=== PATIENT | female | born 1945 | race Two or more races ===

== ENCOUNTER 2017-06-14 12:39 | Inpatient (IN) | payer MEDICARE, OTHER ==
[~2017-06-14] VITALS: Ht 154.9 cm; Wt 55.3 kg
[2017-06-14] MEDS ORDERED: SODIUM CHLORIDE 0.9% 1,000 ML IV ONE ×2 (13:32)
[2017-06-14] MEDS ORDERED: InsuLIN REG 1unit/0.01ml Soln (100units/ml) IV ONE (13:45)
[2017-06-14 13:57] LABS: Basophils # (auto) 0 uL; Basophils % (auto) 0.5 % (0.0-2.0); CONDITION Y; Eosinophils # (auto) 0 uL; Hematocrit 41.3 % (36.0-46.0); Hemoglobin 14.4 g/dL (12.2-16.2); Lymphocytes % (auto) 13.3 % (10.0-50.0); Mean Corpuscular Hemoglobin 32.3 pg (28.0-32.0); Mean Corpuscular Hgb Conc. 34.9 g/dL (32.0-36.0); Mean Corpuscular Volume 92.6 fL (80.0-100.0); Mean Platelet Volume 10.4 fL (7.4-10.4); Monocytes # (auto) 0.4 uL; Monocytes % (auto) 5.9 % (0.0-12.0); Neutrophils % (auto) 80.3 % (37.0-80.0); Platelet Count (auto) 182 10^3/uL (140-450); Red Cell Distribution Width 12.5 % (11.6-16.0); White Blood Cell 7.5 10^3/uL (4.4-10.8)
[2017-06-14 14:45] LABS: Albumin 3.5 g/dL (3.4-5.0); BUN/Creatinine Ratio 14.3; Bilirubin, Total 0.5 mg/dL (0.2-1.0); Calcium 9.2 mg/dL (8.5-10.1); Potassium 3.7 mmol/L (3.5-5.1); Total Protein 7.8 g/dL (6.4-8.2)
[2017-06-14] MEDS ORDERED: cefTRIAXone 1GM/50ML D5W 50 ML IV ONE (16:30)
[2017-06-14] MEDS ORDERED: HYDROcodone-ACET 5/325MG TAB PO PRN (18:00)
[2017-06-14] MEDS ORDERED: DEXTROSE (50%) 50ML SYRG IV PRN (18:00)
[2017-06-14] MEDS ORDERED: DOCUSATE SOD 100 MG CAP PO PRN (18:00)
[2017-06-14] MEDS ORDERED: TEMAZEPAM 15 MG CAP PO PRN (18:00)
[2017-06-14] MEDS ORDERED: MORPHINE SULF INJ 2 MG/ML SYRINGE 1ML IV PRN ×2 (18:00)
[2017-06-14] MEDS ORDERED: ONDANSETRON HCL 4 MG/2 ML VIAL IV PRN (18:00)
[2017-06-14] MEDS ORDERED: NITROGLYCERIN 0.4 MG SL TAB SL PRN (18:00)
[2017-06-14] MEDS: SODIUM CHLORIDE 0.9% 1,000 ML IV SCH (18:15)
[2017-06-14 19:29] LABS: Urine Bilirubin Negative (Negative); Urine Color Yellow (Yellow); Urine RBC 18 /hpf (0 - 4); Urine Squamous Epithelial Cell FEW /hpf (<5); Urine Urobilinogen Normal (Negative); Urine WBC Clumps PRESENT /hpf (None Seen)
[2017-06-14 19:32] LABS: Urine Blood 1+ /uL (Negative); Urine Glucose 4+ mg/dL (Normal); Urine Ketone 1+ (Negative); Urine Nitrite POSITIVE (Negative)
[2017-06-14] MEDS: ACETAMINOPHEN 325 MG TAB PO PRN (20:06)
[2017-06-14 20:51] VITALS: BP 104/64
[2017-06-14 21:35] VITALS: BP 104/64
[2017-06-14] MEDS: FAMOTIDINE 20 MG TAB PO SCH (22:16)
[2017-06-14] MEDS: ACCU-CHEK COMFORT CURVE STRIP VI SCH (22:19)
[2017-06-14] MEDS: INSULIN DETEMIR(LEVEMIR) 1unit/0.01ml Soln (100units/ml) SC SCH (22:22)
[2017-06-14] MEDS: InsuLIN REG 1unit/0.01ml Soln (100units/ml) SC SCH (22:23)
[2017-06-15] VITALS (7 sets, daily range): BP systolic 98–132; BP diastolic 55–65
[2017-06-15] MEDS ORDERED: LEVEMIR SC (02:20)
[2017-06-15] MEDS ORDERED: IRONTAB34 OR (02:22)
[2017-06-15] MEDS: ACETAMINOPHEN 325 MG TAB PO PRN ×2 (04:47→12:15)
[2017-06-15] MEDS ORDERED: PNEUMOCOCCAL VACC POLYS 25 MCG/0.5 ML VIAL IM SCH (05:30)
[2017-06-15 06:27] LABS: Basophils # (auto) 0 uL; Basophils % (auto) 0.7 % (0.0-2.0); CONDITION Y; Eosinophils # (auto) 0 uL; Hematocrit 36.1 % (36.0-46.0); Hemoglobin 12.6 g/dL (12.2-16.2); Lymphocytes # (auto) 0.9 uL; Lymphocytes % (auto) 13.8 % (10.0-50.0); Mean Corpuscular Hemoglobin 32.3 pg (28.0-32.0); Mean Corpuscular Hgb Conc. 34.9 g/dL (32.0-36.0); Mean Corpuscular Volume 92.8 fL (80.0-100.0); Mean Platelet Volume 10.8 fL (7.4-10.4); Monocytes # (auto) 0.5 uL; Monocytes % (auto) 7.7 % (0.0-12.0); Neutrophils % (auto) 77.8 % (37.0-80.0); Platelet Count (auto) 160 10^3/uL (140-450); Red Cell Distribution Width 12.4 % (11.6-16.0); White Blood Cell 6.4 10^3/uL (4.4-10.8)
[2017-06-15] MEDS: ACCU-CHEK COMFORT CURVE STRIP VI SCH ×4 (06:29→22:37)
[2017-06-15] MEDS: InsuLIN REG 1unit/0.01ml Soln (100units/ml) SC SCH ×4 (06:30→22:36)
[2017-06-15 06:39] LABS: Albumin 2.6 g/dL (3.4-5.0); BUN/Creatinine Ratio 21.7; Calcium 7.9 mg/dL (8.5-10.1)
[2017-06-15 06:41] LABS: Bilirubin, Total 0.3 mg/dL (0.2-1.0); Total Protein 6.2 g/dL (6.4-8.2)
[2017-06-15 06:46] LABS: Potassium 2.9 mmol/L (3.5-5.1)
[2017-06-15] MEDS ORDERED: POTASSIUM CHL 20 Meq TABLET PO ONE (08:00)
[2017-06-15] MEDS: cefTRIAXone 1GM/50ML D5W 50 ML IV SCH (09:04)
[2017-06-15] MEDS: FAMOTIDINE 20 MG TAB PO SCH ×2 (09:04→22:00)
[2017-06-15] MEDS: MULTIPLE VITAMIN TAB PO SCH (09:05)
[2017-06-15] MEDS: SODIUM CHLORIDE 0.9% 1,000 ML IV SCH (10:28)
[2017-06-15 21:10] LABS: Basophils # (auto) 0 uL; Basophils % (auto) 0.5 % (0.0-2.0); CONDITION Y; Eosinophils # (auto) 0 uL; Hematocrit 34.7 % (36.0-46.0); Hemoglobin 12.1 g/dL (12.2-16.2); Lymphocytes # (auto) 0.9 uL; Lymphocytes % (auto) 16.5 % (10.0-50.0); Mean Corpuscular Hgb Conc. 34.9 g/dL (32.0-36.0); Mean Corpuscular Volume 91.8 fL (80.0-100.0); Mean Platelet Volume 10.3 fL (7.4-10.4); Monocytes # (auto) 0.4 uL; Monocytes % (auto) 6.9 % (0.0-12.0); Neutrophils # (auto) 4.4 uL; Neutrophils % (auto) 76.1 % (37.0-80.0); Platelet Count (auto) 171 10^3/uL (140-450); Red Cell Distribution Width 12.5 % (11.6-16.0); White Blood Cell 5.7 10^3/uL (4.4-10.8)
[2017-06-15] MEDS: INSULIN DETEMIR(LEVEMIR) 1unit/0.01ml Soln (100units/ml) SC SCH (22:37)
[2017-06-15] MEDS ORDERED: VANCOMYCIN 1GM/250ML D5W 250 ML IV ONE (23:00)
[2017-06-15] MEDS ORDERED: VANCOMYCIN PER PHARMACY 0 MG IV SCH (23:00)
[2017-06-16] MEDS: SODIUM CHLORIDE 0.9% 1,000 ML IV SCH (02:30)
[2017-06-16 05:37] VITALS: BP 101/55
[2017-06-16 06:12] LABS: Basophils # (auto) 0 uL; Basophils % (auto) 0.4 % (0.0-2.0); CONDITION Y; Eosinophils # (auto) 0 uL; Hematocrit 36.2 % (36.0-46.0); Hemoglobin 12.7 g/dL (12.2-16.2); Lymphocytes # (auto) 1.5 uL; Lymphocytes % (auto) 25.9 % (10.0-50.0); Mean Corpuscular Hemoglobin 32.2 pg (28.0-32.0); Mean Corpuscular Hgb Conc. 35.1 g/dL (32.0-36.0); Mean Corpuscular Volume 91.7 fL (80.0-100.0); Mean Platelet Volume 10.2 fL (7.4-10.4); Monocytes # (auto) 0.5 uL; Monocytes % (auto) 8.8 % (0.0-12.0); Neutrophils # (auto) 3.8 uL; Neutrophils % (auto) 64.9 % (37.0-80.0); Platelet Count (auto) 176 10^3/uL (140-450); Red Cell Distribution Width 12.4 % (11.6-16.0); White Blood Cell 5.9 10^3/uL (4.4-10.8)
[2017-06-16] MEDS: ACCU-CHEK COMFORT CURVE STRIP VI SCH ×3 (06:27→16:52)
[2017-06-16] MEDS: InsuLIN REG 1unit/0.01ml Soln (100units/ml) SC SCH ×3 (06:27→16:53)
[2017-06-16 06:42] LABS: BUN/Creatinine Ratio 13.6; Calcium 8.3 mg/dL (8.5-10.1)
[2017-06-16 06:55] LABS: Potassium 2.9 mmol/L (3.5-5.1)
[2017-06-16] MEDS ORDERED: POTASSIUM CHL 20 Meq TABLET PO ONE (07:15)
[2017-06-16 08:00] VITALS: BP 92/48
[2017-06-16] MEDS: cefTRIAXone 1GM/50ML D5W 50 ML IV SCH (08:40)
[2017-06-16 09:00] VITALS: BP 92/48
[2017-06-16] MEDS: MULTIPLE VITAMIN TAB PO SCH (09:04)
[2017-06-16] MEDS: FAMOTIDINE 20 MG TAB PO SCH (09:04)
[2017-06-16] MEDS ORDERED: VANCOMYCIN 750 MG in D5W 5% 250 ML IV SCH (10:00)
[2017-06-16 13:00] VITALS: BP 112/77
[2017-06-16] MEDS ORDERED: LEVO500T21 PO (15:39)
[2017-06-16 15:59] VITALS: BP 112/77
== END 2017-06-16 19:00 | disposition home or self-care (01) | DRG 720 ==
LOC: ER 12:39 → TELE 12:40 → TELE-WESTW 20:50
PROVIDERS: ADMIT Internal Medicine; ATTEND Nurse Practitioner Acute Care
DX: A41.9 Sepsis, unspecified organism (principal); E11.21 Type 2 diabetes mellitus with diabetic nephropathy; E11.65 Type 2 diabetes mellitus with hyperglycemia; E87.1 Hypo-osmolality and hyponatremia; F17.210 Nicotine dependence, cigarettes, uncomplicated; N18.2 Chronic kidney disease, stage 2 (mild); B96.20 Unspecified Escherichia coli [E. coli] as the cause of diseases classified elsewhere; N12 Tubulo-interstitial nephritis, not specified as acute or chronic; E11.22 Type 2 diabetes mellitus with diabetic chronic kidney disease; Z79.4 Long term (current) use of insulin; Z83.3 Family history of diabetes mellitus; Z90.49 Acquired absence of other specified parts of digestive tract; Z23 Encounter for immunization
CPT/HCPCS: 36415; 71010; 74176; 80048; 80053; 80202; 81001; 82962; 83036; 83605; 83735; 84100; 84443; 85025; 87040; 87086; 87088; 87186; 96361; 96365; 96375; J0696; J1815; J7060

== ENCOUNTER 2018-02-23 12:19 | Emergency (ER) | payer MEDICARE, OTHER ==
[~2018-02-23] VITALS: Ht 142.2 cm; Wt 54.4 kg
[~2018-02-23 12:19] MED LIST: IRONTAB34 OR; LEVEMIR SC; LEVO500T21 PO
[2018-02-23 13:23] LABS: Basophils # (auto) 0.1 uL; Basophils % (auto) 0.9 % (0.0-2.0); Eosinophils # (auto) 0 uL; Eosinophils % (auto) 0.1 % (0.0-7.0); Lymphocytes # (auto) 2.5 uL; Lymphocytes % (auto) 32.1 % (10.0-50.0); Mean Corpuscular Hemoglobin 31.8 pg (28.0-32.0); Mean Corpuscular Hgb Conc. 33.3 g/dL (32.0-36.0); Mean Corpuscular Volume 95.5 fL (80.0-100.0); Monocytes # (auto) 0.4 uL; Monocytes % (auto) 5.1 % (0.0-12.0); Neutrophils # (auto) 4.8 uL; Neutrophils % (auto) 61.8 % (37.0-80.0); Nucleated Red Blood Cells % 0.1 %; Platelet Count (auto) 188 10^3/uL (140-450); Red Blood Cells 4.71 10^6/uL (4.0-5.20); Red Cell Distribution Width 13.8 % (11.8-14.3); White Blood Cell 7.8 10^3/uL (4.4-10.8)
[2018-02-23 13:28] LABS: Urine Bacteria NONE SEEN /hpf (None Seen); Urine Blood Negative /uL (Negative); Urine Mucus FEW (None Seen); Urine Specific Gravity 1.026 (1.001-1.035); Urine WBC 2 /hpf (0 - 5)
[2018-02-23 13:45] LABS: BUN/Creatinine Ratio 20.7; Bilirubin, Total 0.3 mg/dL (0.2-1.0); Calcium 8.8 mg/dL (8.5-10.1); Total Protein 7.4 g/dL (6.4-8.2)
[2018-02-23] MEDS ORDERED: InsuLIN REG 1unit/0.01ml Soln (100units/ml) SC ONE (16:15)
[2018-02-23 16:43] VITALS: BP 122/74
== END 2018-02-23 16:51 | disposition home or self-care (01) ==
LOC: ER 12:19
DX: E11.65 Type 2 diabetes mellitus with hyperglycemia (principal); F17.210 Nicotine dependence, cigarettes, uncomplicated; Z79.4 Long term (current) use of insulin
CPT/HCPCS: 36415; 71046; 80053; 81001; 82962; 85025; 93005; 96372; 99285; J1815; J7030

== ENCOUNTER 2018-07-14 10:57 | Emergency (ER) | payer MEDICARE, OTHER ==
[~2018-07-14] VITALS: Ht 152.4 cm; Wt 53.5 kg
[2018-07-14] MEDS ORDERED: SODIUM CHLORIDE 0.9% 500 ML IVB ONE (11:10)
[2018-07-14] MEDS ORDERED: KETOROLAC TROMETH 30 MG/ML 1ML VIAL IM ONE (11:15)
[2018-07-14] MEDS ORDERED: PROMETHAZINE HCL 25 MG/ML 1ML IV PRN (11:15)
[2018-07-14 11:34] LABS: Urine Bacteria NONE SEEN /hpf (None Seen); Urine Blood Negative /uL (Negative); Urine Specific Gravity 1.016 (1.001-1.035); Urine WBC 1 /hpf (0 - 5)
[2018-07-14 11:40] LABS: Basophils # (auto) 0 uL; Basophils % (auto) 0.5 % (0.0-2.0); Eosinophils # (auto) 0 uL; Hemoglobin 13.7 g/dL (12.2-16.2); Lymphocytes # (auto) 2.4 uL; Lymphocytes % (auto) 32.9 % (10.0-50.0); Mean Corpuscular Hemoglobin 32.2 pg (28.0-32.0); Mean Corpuscular Hgb Conc. 34.3 g/dL (32.0-36.0); Mean Corpuscular Volume 93.8 fL (80.0-100.0); Monocytes # (auto) 0.4 uL; Monocytes % (auto) 5.9 % (0.0-12.0); Neutrophils # (auto) 4.5 uL; Neutrophils % (auto) 60.7 % (37.0-80.0); Nucleated Red Blood Cells % 0.1 %; Platelet Count (auto) 165 10^3/uL (140-450); Red Blood Cells 4.27 10^6/uL (4.0-5.20); Red Cell Distribution Width 13.2 % (11.8-14.3); White Blood Cell 7.4 10^3/uL (4.4-10.8)
[2018-07-14 12:24] LABS: Alanine Aminotransferase 16 U/L (13-56); Albumin 3.5 g/dL (3.4-5.0); Alkaline Phosphatase 116 U/L (45-117); Anion Gap 7 (5-15); Aspartate Aminotransferase 13 U/L (15-37); BUN/Creatinine Ratio 22.4; Bilirubin, Total 0.5 mg/dL (0.2-1.0); Blood Urea Nitrogen 15 mg/dL (7-18); Calcium 8.4 mg/dL (8.5-10.1); Carbon Dioxide 27 mmol/L (21-32); Chloride 104 mmol/L (98-107); GFR African American 112 mL/min; GFR Non-African American 92 mL/min; Glucose 206 mg/dL (74-106); Lipase 154 U/L (73-393); Potassium 3.7 mmol/L (3.5-5.1); Sodium 138 mmol/L (136-145)
[2018-07-14 13:45] VITALS: BP 128/77
== END 2018-07-14 13:58 | disposition home or self-care (01) ==
LOC: ER 10:57
DX: R10.32 Left lower quadrant pain (principal); R19.7 Diarrhea, unspecified; J45.909 Unspecified asthma, uncomplicated; E11.9 Type 2 diabetes mellitus without complications; F17.210 Nicotine dependence, cigarettes, uncomplicated; Z90.49 Acquired absence of other specified parts of digestive tract
CPT/HCPCS: 36415; 74176; 80053; 81001; 83690; 83735; 84484; 85025; 93005; 94761; 96361; 96372; 96374; 99285; J1885; J2550; J7040

== ENCOUNTER → 2019-04-12 | Emergency (ER) | payer MEDICARE, OTHER ==
[~2019-04-12] VITALS: Ht 154.9 cm; Wt 54.9 kg
[2019-04-12 17:31] LABS: Basophils # (auto) 0 uL; Basophils % (auto) 0.4 % (0.0-2.0); Eosinophils # (auto) 0 uL; Eosinophils % (auto) 0.1 % (0.0-7.0); Hematocrit 41.4 % (36.0-46.0); Hemoglobin 14.3 g/dL (12.2-16.2); Lymphocytes # (auto) 2.7 uL; Lymphocytes % (auto) 35.8 % (10.0-50.0); Mean Corpuscular Hemoglobin 32.2 pg (28.0-32.0); Mean Corpuscular Hgb Conc. 34.6 g/dL (32.0-36.0); Mean Corpuscular Volume 93.1 fL (80.0-100.0); Monocytes # (auto) 0.5 uL; Monocytes % (auto) 6.3 % (0.0-12.0); Neutrophils # (auto) 4.4 uL; Neutrophils % (auto) 57.4 % (37.0-80.0); Nucleated Red Blood Cells % 0.1 %; Platelet Count (auto) 182 10^3/uL (140-450); Red Blood Cells 4.44 10^6/uL (4.0-5.20); Red Cell Distribution Width 13.4 % (11.8-14.3); White Blood Cell 7.7 10^3/uL (4.4-10.8)
[2019-04-12 17:48] LABS: Albumin 3.7 g/dL (3.4-5.0); Potassium 4.1 mmol/L (3.5-5.1)
[2019-04-12 17:54] LABS: BUN/Creatinine Ratio 16.2; Bilirubin, Total 0.3 mg/dL (0.2-1.0); Total Protein 7.4 g/dL (6.4-8.2)
[2019-04-12 17:57] LABS: Urine Bacteria NONE SEEN /hpf (None Seen); Urine Blood Negative /uL (Negative); Urine Specific Gravity 1.027 (1.001-1.035); Urine WBC 1 /hpf (0 - 5)
[2019-04-12 18:20] VITALS: BP 122/78
== END | disposition home or self-care (01) ==
LOC: ER 16:20
DX: R10.84 Generalized abdominal pain (principal); K59.00 Constipation, unspecified; J45.909 Unspecified asthma, uncomplicated; E11.9 Type 2 diabetes mellitus without complications; F17.210 Nicotine dependence, cigarettes, uncomplicated; Z90.49 Acquired absence of other specified parts of digestive tract; Z87.442 Personal history of urinary calculi
CPT/HCPCS: 36415; 74176; 80053; 81001; 82150; 82962; 83690; 85025; 93005

== ENCOUNTER 2020-10-06 14:52 | Inpatient (IN) | payer MEDICARE, OTHER ==
[~2020-10-06] VITALS: Ht 167.6 cm; Wt 57.0 kg
[2020-10-06 16:44] LABS: Urine Bacteria FEW /hpf (None Seen); Urine Blood 1+ /uL (Negative); Urine Mucus FEW (None Seen); Urine Specific Gravity 1.016 (1.001-1.035); Urine WBC 454 /hpf (0 - 5); Urine WBC Clumps PRESENT /hpf (None Seen)
[2020-10-06 16:56] LABS: Basophils # (auto) 0.1 10 ^3/uL (0-0.2); Eosinophils # (auto) 0 10 ^3/uL (0-0.8); Eosinophils % (auto) 0.1 % (0.0-7.0); Hematocrit 39.8 % (36.0-46.0); Hemoglobin 13.5 g/dL (12.2-16.2); Lymphocytes # (auto) 2.3 10 ^3/uL (0.4-5.4); Lymphocytes % (auto) 26.6 % (10.0-50.0); Mean Corpuscular Hemoglobin 32.3 pg (28.0-32.0); Mean Corpuscular Volume 95.1 fL (80.0-100.0); Monocytes # (auto) 0.5 10 ^3/uL (0-1.3); Monocytes % (auto) 5.4 % (0.0-12.0); Neutrophils # (auto) 5.7 10 ^3/uL (1.6-8.6); Neutrophils % (auto) 66.9 % (37.0-80.0); Nucleated Red Blood Cells % 0.1 %; Platelet Count (auto) 173 10^3/uL (140-450); Red Blood Cells 4.18 10^6/uL (4.0-5.20); Red Cell Distribution Width 13.1 % (11.8-14.3); White Blood Cell 8.5 10^3/uL (4.4-10.8)
[2020-10-06 17:18] LABS: Albumin 3.4 g/dL (3.4-5.0); Calcium 8.5 mg/dL (8.5-10.1); Potassium 3.5 mmol/L (3.5-5.1)
[2020-10-06 17:21] LABS: BUN/Creatinine Ratio 14.4; Bilirubin, Total 0.3 mg/dL (0.2-1.0); Total Protein 6.9 g/dL (6.4-8.2)
[2020-10-06] MEDS ORDERED: InsuLIN REG 1unit/0.01ml Soln (100units/ml) IV ONE (17:45)
[2020-10-06] MEDS ORDERED: SODIUM CHLORIDE 0.9% 1,000 ML IV ONE ×2 (17:45→19:15)
[2020-10-06] MEDS ORDERED: cefTRIAXone 1GM/50ML D5W 50 ML IV ONE (18:45)
[2020-10-06] MEDS ORDERED: MORPHINE SULF INJ 2 MG/ML SYRINGE 1ML IV PRN (19:15)
[2020-10-06] MEDS ORDERED: NITROGLYCERIN 0.4 MG SL TAB SL PRN (19:15)
[2020-10-06] MEDS ORDERED: INSULIN LANTUS (GLARGINE) 1 /0.01ml (100units/ml) SC ONE (19:15)
[2020-10-06] MEDS ORDERED: DEXTROSE (50%) 50ML SYRG IV PRN (19:15)
[2020-10-06] MEDS: ACCU-CHEK COMFORT CURVE STRIP VI SCH (20:43)
[2020-10-06] MEDS ORDERED: InsuLIN REG 1unit/0.01ml Soln (100units/ml) SC SCH (22:00)
[2020-10-07] MEDS: MEROPENEM 1GM IVPB 100 ML IV SCH ×2 (00:45→17:13)
[2020-10-07] MEDS ORDERED: ACETAMINOPHEN 325 MG TAB PO PRN (01:15)
[2020-10-07] MEDS ORDERED: NITROGLYCERIN 0.4 MG SL TAB SL PRN (01:15)
[2020-10-07] MEDS ORDERED: ALBUTEROL SULF 2.5 MG/0.5ML(0.5%) NEB SOLN NEB PRN (01:15)
[2020-10-07] MEDS ORDERED: MORPHINE SULF INJ 2 MG/ML SYRINGE 1ML IV PRN ×2 (01:15)
[2020-10-07] MEDS ORDERED: LORazepam 0.5 MG TAB PO PRN (01:15)
[2020-10-07] MEDS ORDERED: DOCUSATE SOD 100 MG CAP PO PRN (01:15)
[2020-10-07] MEDS ORDERED: HYDROcodone-ACET 5/325MG TAB PO PRN (01:15)
[2020-10-07] MEDS ORDERED: SODIUM CHLORIDE 0.9% 1,000 ML IV SCH (01:15)
[2020-10-07] MEDS ORDERED: IPRATROPIUM BROM 0.5 MG/2.5ML INH SOL NEB SCH (02:00)
--- NOTE | 2020-10-07 02:10 | NUR ---
Respiratory note: PT SEEN AND ASSESSED FOR PRN MED NEB TX AT 0210. TX IS NOT INDICATED AT THIS TIME. PT STATES THAT SHE HAS HAD NO TROUBLES BREATHING. HR 94 RR 18 SP02 98% ON ROOM AIR.
[2020-10-07] MEDS ORDERED: IPRATROPIUM BROM 0.5 MG/2.5ML INH SOL NEB PRN (03:00)
[2020-10-07 03:15] VITALS: BP 132/73
[2020-10-07 04:26] LABS: Cholesterol 142 mg/dL (< 200)
[2020-10-07 04:31] LABS: HDL Cholesterol 37 mg/dL (40-59); LDL Cholesterol 85 mg/dL (< 100); Triglycerides 152 mg/dL (< 150)
[2020-10-07] MEDS ORDERED: BUDESONIDE (INHALATION) 0.5 MG/2 ML NEB ONE (06:27)
[2020-10-07] MEDS: InsuLIN REG 1unit/0.01ml Soln (100units/ml) SC SCH ×4 (06:42→17:37)
[2020-10-07] MEDS: ACCU-CHEK COMFORT CURVE STRIP VI SCH ×4 (06:43→17:28)
[2020-10-07 07:21] LABS: Urine Bacteria NONE SEEN /hpf (None Seen); Urine Blood TRACE /uL (Negative); Urine Specific Gravity 1.009 (1.001-1.035); Urine WBC 180 /hpf (0 - 5)
[2020-10-07 07:47] LABS: Alcohol, Urine < 3.0 mg/dL (0-10); Amphetamine Screen, Urine NEGATIVE (NEGATIVE); Barbiturate Scree,Urine NEGATIVE (NEGATIVE); Benzodiazephine Screen, Urine NEGATIVE (NEGATIVE); Cannabinoid Screen, Urine NEGATIVE (NEGATIVE); Cocaine Screen, Urine NEGATIVE (NEGATIVE); Opiate Scree,Urine NEGATIVE (NEGATIVE); Phencyclidine Screen, Urine NEGATIVE (NEGATIVE)
[2020-10-07] MEDS ORDERED: cefTRIAXone 1GM/50ML D5W 50 ML IV SCH (09:00)
[2020-10-07] MEDS: ENOXAPARIN SOD 40 MG/0.4 ML SYRINGE SC SCH (09:45)
[2020-10-07] MEDS ORDERED: BUDESONIDE (INHALATION) 0.5 MG/2 ML NEB NEB SCH (10:00)
[2020-10-07] MEDS ORDERED: DOXYCYCLINE 100 MG TAB/CAP PO ONE (12:00)
[2020-10-07] MEDS ORDERED: DEXTROSE (50%) 50ML SYRG IV PRN (12:00)
[2020-10-07 12:13] LABS: Albumin 3.2 g/dL (3.4-5.0); Calcium 8.4 mg/dL (8.5-10.1); Potassium 3.3 mmol/L (3.5-5.1)
[2020-10-07] MEDS ORDERED: POTASSIUM EFFERVESENT TAB 25 MEQ PO ONE (12:15)
[2020-10-07 12:22] LABS: BUN/Creatinine Ratio 16.7; Bilirubin, Total 0.7 mg/dL (0.2-1.0); Total Protein 6.1 g/dL (6.4-8.2)
[2020-10-07] MEDS ORDERED: SODIUM CHLORIDE 0.9% 500 ML IV ONE (12:30)
[2020-10-07] MEDS: ONDANSETRON HCL 4 MG/2 ML VIAL IV PRN ×2 (13:33→14:42)
[2020-10-07 13:48] LABS: Basophils # (auto) 0 10 ^3/uL (0-0.2); Basophils % (auto) 0.3 % (0.0-2.0); Eosinophils # (auto) 0 10 ^3/uL (0-0.8); Eosinophils % (auto) 0.1 % (0.0-7.0); Hematocrit 35.2 % (36.0-46.0); Hemoglobin 11.9 g/dL (12.2-16.2); Lymphocytes # (auto) 0.7 10 ^3/uL (0.4-5.4); Lymphocytes % (auto) 5.9 % (10.0-50.0); Mean Corpuscular Hgb Conc. 33.9 g/dL (32.0-36.0); Mean Corpuscular Volume 94.4 fL (80.0-100.0); Monocytes # (auto) 0.5 10 ^3/uL (0-1.3); Monocytes % (auto) 3.9 % (0.0-12.0); Neutrophils # (auto) 10.8 10 ^3/uL (1.6-8.6); Neutrophils % (auto) 89.8 % (37.0-80.0); Platelet Count (auto) 148 10^3/uL (140-450); Red Blood Cells 3.72 10^6/uL (4.0-5.20); Red Cell Distribution Width 12.7 % (11.8-14.3)
[2020-10-07] MEDS: SODIUM CHLORIDE 0.9% 1,000 ML IV SCH (13:50)
[2020-10-07] MEDS ORDERED: SODIUM CHLORIDE 0.9% 1,000 ML IV ONE ×2 (14:15→15:00)
[2020-10-07] MEDS ORDERED: MEROPENEM 1GM IVPB 100 ML IV SCH (14:45)
[2020-10-07] MEDS: LINEZOLID 600MG/300ML 300 ML IV SCH ×2 (15:44→23:25)
[2020-10-07] MEDS ORDERED: CALCIUM GLUC 4.65meq/50ml D5AE 0 ML IV ONE (17:45)
--- NOTE | 2020-10-07 18:50 | NUR ---
Respiratory note: PT ASSESSED FOR PRN MED NEB TX. HR 107, RR 16, SPO2 92% ON RA. NO S/S OF ANY RESPIRATORY DISTRESS NOTED. ADVISED PT TO CALL IF TX IS NEEDED.
[2020-10-07] MEDS ORDERED: LORazepam 2MG/ML-1ML VIAL IV PRN (21:30)
[2020-10-07] MEDS ORDERED: DOXYCYCLINE 100 MG TAB/CAP PO SCH (22:00)
[2020-10-07] MEDS: INSULIN LANTUS (GLARGINE) 1 /0.01ml (100units/ml) SC SCH (23:10)
[2020-10-08] MEDS: SODIUM CHLORIDE 0.9% 1,000 ML IV SCH ×3 (00:45→17:13)
[2020-10-08] MEDS: ACCU-CHEK COMFORT CURVE STRIP VI SCH ×4 (01:20→17:13)
[2020-10-08] MEDS: InsuLIN REG 1unit/0.01ml Soln (100units/ml) SC SCH ×4 (01:20→17:15)
[2020-10-08 05:40] LABS: Basophils # (auto) 0.1 10 ^3/uL (0-0.2); Basophils % (auto) 0.5 % (0.0-2.0); Eosinophils # (auto) 0 10 ^3/uL (0-0.8); Eosinophils % (auto) 0.2 % (0.0-7.0); Hematocrit 32.6 % (36.0-46.0); Hemoglobin 11.4 g/dL (12.2-16.2); Lymphocytes # (auto) 1.5 10 ^3/uL (0.4-5.4); Lymphocytes % (auto) 14.4 % (10.0-50.0); Mean Corpuscular Hemoglobin 33.1 pg (28.0-32.0); Mean Corpuscular Hgb Conc. 35.1 g/dL (32.0-36.0); Mean Corpuscular Volume 94.2 fL (80.0-100.0); Monocytes # (auto) 0.6 10 ^3/uL (0-1.3); Monocytes % (auto) 5.6 % (0.0-12.0); Neutrophils % (auto) 79.3 % (37.0-80.0); Nucleated Red Blood Cells % 0.2 %; Platelet Count (auto) 132 10^3/uL (140-450); Red Blood Cells 3.46 10^6/uL (4.0-5.20); Red Cell Distribution Width 12.7 % (11.8-14.3); White Blood Cell 10.1 10^3/uL (4.4-10.8)
[2020-10-08 05:51] LABS: Calcium 7.7 mg/dL (8.5-10.1)
[2020-10-08 06:06] LABS: Potassium 2.8 mmol/L (3.5-5.1)
[2020-10-08] MEDS ORDERED: POTASSIUM CHL 20 Meq TABLET PO ONE (06:15)
[2020-10-08] MEDS: MEROPENEM 1GM IVPB 100 ML IV SCH ×3 (06:41→23:08)
--- NOTE | 2020-10-08 07:26 | NUR ---
Respiratory note: PT ASSESS FOR PRN MED NEB. PT FOUND ON ROOM AIR SP02 98%, HR 82, RR 18. PT IN NO RESPIRATORY DISTRESS AT THIS TIME. NO INDICATION FOR TX AT THIS TIME. PT AWARE TO HAVE RT PAGED IF SOB.
[2020-10-08] MEDS ORDERED: POTASSIUM EFFERVESENT TAB 25 MEQ PO ONE (09:15)
[2020-10-08] MEDS: LINEZOLID 600MG/300ML 300 ML IV SCH ×2 (09:50→22:12)
[2020-10-08] MEDS: ENOXAPARIN SOD 40 MG/0.4 ML SYRINGE SC SCH (09:50)
[2020-10-08 16:15] VITALS: BP 122/60
--- NOTE | 2020-10-08 16:28 | NUR ---
Telemetry admit from ER ALONDRA ABREU admitted to Telemetry unit after SBAR received. Patient oriented to Chelsie Colbert, primary RN, unit, room, bed, and unit policies regarding patient care and visiting hours. Patient now on continuous telemetry monitoring, tele box # [id number] and telemetry reading on arrival to unit is . Patient placed on bedside oxygen, weighed by bedscale and encouraged to call if they need something. All questions and concerns addressed, patient verbalized understanding. Note:
[2020-10-08] MEDS ORDERED: CHOL20007 PO (16:44)
[2020-10-08] MEDS ORDERED: MULT-732 OR (16:44)
--- NOTE | 2020-10-08 19:00 | NUR ---
Opening Shift Note Assumed care of patient, awake and alert x4. No S/S of distress/SOB or pain. bed in low locked position, call light within reach, side rails up x2. Instructed on POC and to call for assist PRN, will continue to monitor for changes Q1hr and PRN.
--- NOTE | 2020-10-08 19:16 | NUR ---
Respiratory note: ASSESSED PT FOR PRN MED NEB AT THIS TIME, PT DENIES SOB AT THIS TIME, NO RESP DISTRESS NOTED, NO TX INDICATED, PULSE OX 100% ON RA, HR 91, RR 14, BILATERAL BS CLEAR
[2020-10-08 22:00] VITALS: BP 126/70
--- NOTE | 2020-10-08 22:00 | NUR ---
Patient denies any pain. No needs right now.
[2020-10-08] MEDS: INSULIN LANTUS (GLARGINE) 1 /0.01ml (100units/ml) SC SCH (22:12)
[2020-10-09] MEDS: ACCU-CHEK COMFORT CURVE STRIP VI SCH ×4 (00:12→17:49)
[2020-10-09] MEDS: InsuLIN REG 1unit/0.01ml Soln (100units/ml) SC SCH ×4 (00:13→17:49)
[2020-10-09 05:00] VITALS: BP 114/59
[2020-10-09] MEDS: SODIUM CHLORIDE 0.9% 1,000 ML IV SCH (06:18)
[2020-10-09] MEDS: MEROPENEM 1GM IVPB 100 ML IV SCH (06:19)
[2020-10-09 06:25] LABS: BUN/Creatinine Ratio 11.3; Calcium 8.4 mg/dL (8.5-10.1); Potassium 3.3 mmol/L (3.5-5.1)
--- NOTE | 2020-10-09 07:50 | NUR ---
Opening Shift Note Assumed care of patient, awake and alert. bed is locked and in lowest position bed rails up x2 , call light is within reach . No S/S of distress/SOB or pain. Instructed on POC and to call for assistance PRN, will continue to monitor for changes Q1hr and PRN.
[2020-10-09 09:00] VITALS: BP 108/64
[2020-10-09] MEDS: ENOXAPARIN SOD 40 MG/0.4 ML SYRINGE SC SCH (10:37)
[2020-10-09] MEDS: LINEZOLID 600MG/300ML 300 ML IV SCH (10:37)
[2020-10-09] MEDS: SERTRALINE HCL 50 MG TAB PO SCH (10:37)
[2020-10-09] MEDS ORDERED: POTASSIUM CHL 20 Meq TABLET PO ONE (11:30)
--- NOTE | 2020-10-09 11:38 | NUR ---
EEG-ELECTROENCEPHALOGRAM COMPLETED AT BEDSIDE @ [id number]. RN MIGUEL CAMILO.
[2020-10-09 13:00] VITALS: BP_SYST 149; BP_SYST 156; BP_DIAS 81; BP_DIAS 91
[2020-10-09 17:00] VITALS: BP 128/81
--- NOTE | 2020-10-09 18:39 | NUR ---
PT ASSESSED FOR PRN MED NEB TX. SPO2 96% ON RA, HR 82. PT DENIES ANY RESPIRATORY DISTRESS. NO TX INDICATED. PT IS AWARE TO HAVE RT PAGED IF TX NEEDED.
--- NOTE | 2020-10-09 19:00 | NUR ---
Opening Shift Note Assumed care of patient, awake and alert x4. No S/S of distress/SOB or pain. bed in low locked position, call light within reach, bed side rails up x2. Instructed on POC and to call for assist PRN, will continue to monitor for changes Q1hr and PRN.
[2020-10-09 19:15] VITALS: BP 128/81
[2020-10-09] MEDS ORDERED: TPN PER PHARMACY IV NR ×12 (20:00)
[2020-10-09 22:00] VITALS: BP 137/75
[2020-10-09] MEDS: INSULIN LANTUS (GLARGINE) 1 /0.01ml (100units/ml) SC SCH (22:09)
[2020-10-10] MEDS: InsuLIN REG 1unit/0.01ml Soln (100units/ml) SC SCH ×3 (00:13→12:00)
[2020-10-10] MEDS: ACCU-CHEK COMFORT CURVE STRIP VI SCH ×3 (00:14→12:00)
[2020-10-10 05:00] VITALS: BP 117/65
[2020-10-10 08:46] VITALS: BP 106/57
[2020-10-10] MEDS ORDERED: cefTRIAXone 1GM/50ML D5W 50 ML IV SCH (09:00)
[2020-10-10] MEDS: SERTRALINE HCL 50 MG TAB PO SCH (10:21)
[2020-10-10] MEDS: ENOXAPARIN SOD 40 MG/0.4 ML SYRINGE SC SCH (10:22)
[2020-10-10] MEDS ORDERED: SERT-275 PO (10:48)
[2020-10-10] MEDS ORDERED: METF-370 PO (10:49)
[2020-10-10] MEDS ORDERED: CIPR500T4 PO (10:50)
[2020-10-10] MEDS ORDERED: ATOR20TA50 PO (10:50)
[2020-10-10 12:55] VITALS: BP 110/60
--- NOTE | 2020-10-10 13:49 | NUR ---
Respiratory note: PT ASSESSED FOR PRN MED NEB TX. PT IN NO CURRENT RESPIRATORY DISTRESS. CURRENT VITALS 92% SPO2, 95 HR, 16 RR. BS ARE CLR/DIM BILATERALLY. COMMUNICATED WITH PT TO INFORM NURSE IF PRN MED NEB TX NEEDED/SOB.
[2020-10-10 14:03] VITALS: BP 110/60
--- NOTE | 2020-10-10 16:06 | NUR ---
Discharge instructions given as ordered. Encourage to follow up with PMD as instructed. All questions and concerns addressed. Patient verbalized understanding. Medication reconciliation form completed and copy given to patient. IV removed with catheter intact, pressure dressing applied. Telemetry unit returned to ICU. Patient ambulated to vehicle with all personal belongings, accompanied by staff . No distress noted at time of departure.
== END 2020-10-10 16:05 | disposition home or self-care (01) | DRG 720 ==
LOC: ER 14:53 → TELE 19:09 → TELE-WESTW 10-08 15:49
PROVIDERS: ADMIT Hospitalist; ATTEND Internal Medicine Nephrology
DX: A41.9 Sepsis, unspecified organism (principal); N17.0 Acute kidney failure with tubular necrosis; N39.0 Urinary tract infection, site not specified; E11.65 Type 2 diabetes mellitus with hyperglycemia; E11.21 Type 2 diabetes mellitus with diabetic nephropathy; J44.9 Chronic obstructive pulmonary disease, unspecified; K21.9 Gastro-esophageal reflux disease without esophagitis; K29.70 Gastritis, unspecified, without bleeding; E78.5 Hyperlipidemia, unspecified; I10 Essential (primary) hypertension; F17.210 Nicotine dependence, cigarettes, uncomplicated; F41.9 Anxiety disorder, unspecified; I08.1 Rheumatic disorders of both mitral and tricuspid valves; R65.20 Severe sepsis without septic shock; Z83.3 Family history of diabetes mellitus; Z87.442 Personal history of urinary calculi; Z91.19 Patient's noncompliance with other medical treatment and regimen; E11.42 Type 2 diabetes mellitus with diabetic polyneuropathy; Z20.828 Contact with and (suspected) exposure to other viral communicable diseases; Z90.49 Acquired absence of other specified parts of digestive tract; Z79.4 Long term (current) use of insulin; R51.9 Headache, unspecified
CPT/HCPCS: 36415; 70551; 71046; 80048; 80053; 80061; 80307; 81001; 82533; 82962; 83036; 83605; 84439; 84443; 84484; 85025; 87040; 87086; 87426; 93306; 94640; 95819; 96360; G0378; J0610; J0696; J1815; J2185; J2405

== ENCOUNTER 2021-07-02 10:59 | Inpatient (IN) | payer MEDICARE, OTHER ==
[~2021-07-02] VITALS: Ht 162.6 cm; Wt 80.3 kg
[~2021-07-02 10:59] MED LIST changes: +CIPR500T4 PO; -IRONTAB34 OR; -LEVO500T21 PO; +MULT-732 OR
[2021-07-02] MEDS ORDERED: MORPHINE SULFATE 4 MG/ML SYR/VIAL IV ONE (11:45)
[2021-07-02] MEDS ORDERED: ONDANSETRON HCL 4 MG/2 ML VIAL IV ONE (11:45)
[2021-07-02] MEDS ORDERED: SODIUM CHLORIDE 0.9% 500 ML IVB ONE (11:45)
[2021-07-02] MEDS ORDERED: SODIUM CHLORIDE 0.9% 500 ML IV ONE (11:45)
[2021-07-02 12:20] LABS: Basophils # (auto) 0.1 10 ^3/uL (0-0.2); Basophils % (auto) 1.4 % (0.0-2.0); Eosinophils # (auto) 0 10 ^3/uL (0-0.8); Hematocrit 37.4 % (36.0-46.0); Hemoglobin 13.4 g/dL (12.2-16.2); Lymphocytes # (auto) 2.5 10 ^3/uL (0.4-5.4); Lymphocytes % (auto) 30.4 % (10.0-50.0); Mean Corpuscular Hemoglobin 33.1 pg (28.0-32.0); Mean Corpuscular Hgb Conc. 35.8 g/dL (32.0-36.0); Mean Corpuscular Volume 92.4 fL (80.0-100.0); Monocytes # (auto) 0.4 10 ^3/uL (0-1.3); Monocytes % (auto) 5.2 % (0.0-12.0); Neutrophils # (auto) 5.2 10 ^3/uL (1.6-8.6); Red Blood Cells 4.04 10^6/uL (4.0-5.20); Red Cell Distribution Width 13.1 % (11.8-14.3); White Blood Cell 8.2 10^3/uL (4.4-10.8)
[2021-07-02 12:37] LABS: Albumin 3.2 g/dL (3.4-5.0); Calcium 8.4 mg/dL (8.5-10.1); Potassium 4.4 mmol/L (3.5-5.1)
[2021-07-02 12:40] LABS: BUN/Creatinine Ratio 23.3; Bilirubin, Total 0.5 mg/dL (0.2-1.0); Total Protein 7.1 g/dL (6.4-8.2)
[2021-07-02 13:26] LABS: Urine Blood 1+ /uL (Negative); Urine Specific Gravity 1.016 (1.001-1.035)
[2021-07-02 13:44] LABS: Urine Bacteria FEW /hpf (None Seen); Urine WBC 833 /hpf (0 - 5); Urine WBC Clumps PRESENT /hpf (None Seen)
[2021-07-02] MEDS ORDERED: CEFTRIAXONE SODIUM 2 GM in D5W 5% 50 ML IV ONE (13:45)
[2021-07-02] MEDS ORDERED: MORPHINE SULFATE INJECTION 2 MG/ML SYRG IV PRN ×3 (13:45→16:15)
[2021-07-02] MEDS ORDERED: NITROGLYCERIN 0.4 MG SL TAB SL PRN ×2 (13:45→16:15)
[2021-07-02] MEDS ORDERED: LACTATED RINGER'S 2,000 ML IV ONE (13:45)
[2021-07-02] MEDS ORDERED: SEMA3TAB PO (14:11)
[2021-07-02] MEDS ORDERED: GLUC-149 XX (14:11)
[2021-07-02] MEDS ORDERED: INSU1INJ5 SC (14:11)
[2021-07-02] MEDS ORDERED: GLIP10TA9 PO (14:11)
[2021-07-02] MEDS ORDERED: PROP10TA57 PO (14:11)
[2021-07-02] MEDS ORDERED: MULT-927 PO (14:23)
[2021-07-02] MEDS ORDERED: ALBU108A5 INH (14:24)
[2021-07-02] MEDS ORDERED: IBUP600T28 PO (14:24)
[2021-07-02] MEDS ORDERED: GABA100C9 PO (14:24)
[2021-07-02] MEDS ORDERED: HYDROcodone-ACET 5/325MG TAB PO PRN (16:15)
[2021-07-02] MEDS ORDERED: SODIUM CHLORIDE 0.9% 1,000 ML IV SCH (16:15)
[2021-07-02] MEDS ORDERED: LORazepam 0.5 MG TAB PO PRN (16:15)
[2021-07-02] MEDS ORDERED: ONDANSETRON HCL 4 MG/2 ML VIAL IV PRN (16:15)
[2021-07-02] MEDS ORDERED: DEXTROSE (50%) 50ML SYRG IV PRN (16:15)
[2021-07-02] MEDS ORDERED: DOCUSATE SOD 100 MG CAP PO PRN (16:15)
[2021-07-02] MEDS ORDERED: ALUM & MAG HYDROX-SIMETH LIQ(MAALOX) 30 ML PO PRN (16:15)
[2021-07-02] MEDS: SODIUM CHLORIDE 0.9% 1,000 ML IV SCH (16:29)
[2021-07-02 17:31] LABS: Cholesterol 156 mg/dL (< 200)
[2021-07-02 17:35] LABS: HDL Cholesterol 46 mg/dL (40-59); LDL Cholesterol 83 mg/dL (< 100); Triglycerides 148 mg/dL (< 150)
[2021-07-02] MEDS: InsuLIN REG 1unit/0.01ml Soln (100units/ml) SC SCH (18:09)
[2021-07-02] MEDS: ACCU-CHEK COMFORT CURVE STRIP VI SCH (18:09)
[2021-07-02] MEDS: ACETAMINOPHEN 325 MG TAB PO PRN (21:35)
[2021-07-02 22:00] VITALS: BP 105/60
[2021-07-02 22:18] VITALS: BP 105/60
[2021-07-02] MEDS ORDERED: PNEUMOCOCCAL VACC POLYS 25 MCG/0.5 ML VIAL IM ONE (22:30)
[2021-07-03] MEDS: ACCU-CHEK COMFORT CURVE STRIP VI SCH ×4 (01:14→18:13)
[2021-07-03] MEDS: ACETAMINOPHEN 325 MG TAB PO PRN ×2 (04:36→06:30)
[2021-07-03 04:38] LABS: Alcohol, Urine < 3.0 mg/dL (0-10); Amphetamine Screen, Urine NEGATIVE (NEGATIVE); Barbiturate Scree,Urine NEGATIVE (NEGATIVE); Benzodiazephine Screen, Urine NEGATIVE (NEGATIVE); Cannabinoid Screen, Urine NEGATIVE (NEGATIVE); Cocaine Screen, Urine NEGATIVE (NEGATIVE); Opiate Scree,Urine NEGATIVE (NEGATIVE); Phencyclidine Screen, Urine NEGATIVE (NEGATIVE)
[2021-07-03 05:00] VITALS: BP 137/80
[2021-07-03] MEDS: SODIUM CHLORIDE 0.9% 1,000 ML IV SCH ×2 (05:35→19:07)
[2021-07-03] MEDS: InsuLIN REG 1unit/0.01ml Soln (100units/ml) SC SCH ×4 (05:51→18:13)
[2021-07-03 08:00] VITALS: BP 101/54
[2021-07-03] MEDS ORDERED: ENOXAPARIN SOD 40 MG/0.4 ML SYRINGE SC SCH (10:00)
[2021-07-03] MEDS ORDERED: CEFTRIAXONE SODIUM 2 GM in D5W 5% 50 ML IV SCH (10:00)
[2021-07-03 13:00] VITALS: BP 125/66
[2021-07-03 20:00] VITALS: BP 87/44
[2021-07-03 22:00] VITALS: BP 84/44
[2021-07-04] VITALS (7 sets, daily range): BP systolic 99–122; BP diastolic 45–78
[2021-07-04] MEDS: ACCU-CHEK COMFORT CURVE STRIP VI SCH ×4 (02:51→18:00)
[2021-07-04] MEDS: InsuLIN REG 1unit/0.01ml Soln (100units/ml) SC SCH ×4 (02:52→18:00)
[2021-07-04 05:40] LABS: Basophils # (auto) 0.1 10 ^3/uL (0-0.2); Basophils % (auto) 0.8 % (0.0-2.0); Eosinophils # (auto) 0 10 ^3/uL (0-0.8); Eosinophils % (auto) 0.1 % (0.0-7.0); Hematocrit 33.8 % (36.0-46.0); Hemoglobin 11.9 g/dL (12.2-16.2); Lymphocytes # (auto) 1.3 10 ^3/uL (0.4-5.4); Lymphocytes % (auto) 16.5 % (10.0-50.0); Mean Corpuscular Hemoglobin 32.6 pg (28.0-32.0); Mean Corpuscular Hgb Conc. 35.3 g/dL (32.0-36.0); Mean Corpuscular Volume 92.4 fL (80.0-100.0); Monocytes # (auto) 0.4 10 ^3/uL (0-1.3); Neutrophils # (auto) 6.1 10 ^3/uL (1.6-8.6); Neutrophils % (auto) 77.6 % (37.0-80.0); Nucleated Red Blood Cells % 0.1 %; Red Blood Cells 3.66 10^6/uL (4.0-5.20); Red Cell Distribution Width 12.6 % (11.8-14.3); White Blood Cell 7.9 10^3/uL (4.4-10.8)
[2021-07-04 05:50] LABS: BUN/Creatinine Ratio 11.8; Calcium 8.1 mg/dL (8.5-10.1)
[2021-07-04] MEDS: SODIUM CHLORIDE 0.9% 1,000 ML IV SCH ×2 (08:15→19:00)
[2021-07-04] MEDS: cefTRIAXone 1GM/50ML D5W 50 ML IV SCH (09:00)
[2021-07-05] VITALS (7 sets, daily range): BP systolic 104–128; BP diastolic 51–78
[2021-07-05] MEDS: ACCU-CHEK COMFORT CURVE STRIP VI SCH ×4 (00:43→17:45)
[2021-07-05] MEDS: InsuLIN REG 1unit/0.01ml Soln (100units/ml) SC SCH ×4 (00:48→17:45)
[2021-07-05] MEDS: SODIUM CHLORIDE 0.9% 1,000 ML IV SCH ×4 (03:00→21:00)
[2021-07-05] MEDS: cefTRIAXone 1GM/50ML D5W 50 ML IV SCH (09:00)
[2021-07-06] MEDS: InsuLIN REG 1unit/0.01ml Soln (100units/ml) SC SCH ×3 (00:35→11:49)
[2021-07-06] MEDS: ACCU-CHEK COMFORT CURVE STRIP VI SCH ×3 (00:35→11:50)
[2021-07-06 05:39] VITALS: BP 143/72
[2021-07-06 08:00] VITALS: BP 129/72
[2021-07-06] MEDS: SODIUM CHLORIDE 0.9% 1,000 ML IV SCH (08:36)
[2021-07-06] MEDS: cefTRIAXone 1GM/50ML D5W 50 ML IV SCH (08:36)
[2021-07-06 09:00] VITALS: BP 129/72
[2021-07-06 12:50] VITALS: BP 124/78
== END 2021-07-06 16:37 | disposition home or self-care (01) | DRG 720 ==
LOC: ER 10:59 → TELE 13:43 → TELE-WESTW 21:24
PROVIDERS: ADMIT Hospitalist; ATTEND Internal Medicine
DX: A41.51 Sepsis due to Escherichia coli [E. coli] (principal); E44.1 Mild protein-calorie malnutrition; E11.40 Type 2 diabetes mellitus with diabetic neuropathy, unspecified; E78.5 Hyperlipidemia, unspecified; F17.210 Nicotine dependence, cigarettes, uncomplicated; E86.0 Dehydration; J45.909 Unspecified asthma, uncomplicated; Z79.4 Long term (current) use of insulin; Z83.3 Family history of diabetes mellitus; Z87.442 Personal history of urinary calculi; Z90.49 Acquired absence of other specified parts of digestive tract; Z68.30 Body mass index [BMI] 30.0-30.9, adult; Z87.440 Personal history of urinary (tract) infections; N39.0 Urinary tract infection, site not specified
CPT/HCPCS: 36415; 74176; 80048; 80053; 80061; 80307; 81001; 82962; 83036; 83605; 83690; 84484; 85025; 87040; 87086; 87088; 87186; 87426; 93005; 96374; 96375; G0378; J0696; J1815; J2405; J7060

== ENCOUNTER 2021-10-13 12:52 | Inpatient (IN) | payer MEDICARE, OTHER ==
[~2021-10-13] VITALS: Ht 160 cm; Wt 54.2 kg
[~2021-10-13 12:52] MED LIST changes: +ALBU108A5 INH; -CIPR500T4 PO; +GABA100C9 PO; +IBUP600T28 PO; +INSU1INJ5 SC; -LEVEMIR SC; -MULT-732 OR; +MULT-927 PO; +PROP10TA57 PO; +SEMA3TAB PO
[2021-10-13 13:49] LABS: Basophils # (auto) 0.1 10 ^3/uL (0-0.2); Basophils % (auto) 0.8 % (0.0-2.0); Eosinophils # (auto) 0 10 ^3/uL (0-0.8); Hematocrit 38.7 % (36.0-46.0); Lymphocytes # (auto) 2.5 10 ^3/uL (0.4-5.4); Mean Corpuscular Hemoglobin 31.4 pg (28.0-32.0); Mean Corpuscular Hgb Conc. 33.7 g/dL (32.0-36.0); Mean Corpuscular Volume 93.1 fL (80.0-100.0); Monocytes # (auto) 0.4 10 ^3/uL (0-1.3); Monocytes % (auto) 5.2 % (0.0-12.0); Neutrophils # (auto) 4.5 10 ^3/uL (1.6-8.6); Nucleated Red Blood Cells % 0.1 %; Red Blood Cells 4.16 10^6/uL (4.0-5.20); Red Cell Distribution Width 13.3 % (11.8-14.3); White Blood Cell 7.4 10^3/uL (4.4-10.8)
[2021-10-13 14:25] LABS: Urine Bacteria NONE SEEN /hpf (None Seen); Urine Blood Negative /uL (Negative); Urine Budding Yeast LOADED /hpf (None Seen); Urine Specific Gravity 1.014 (1.001-1.035); Urine WBC 6 /hpf (0 - 5)
[2021-10-13 14:55] LABS: Albumin 3.1 g/dL (3.4-5.0); Calcium 8.3 mg/dL (8.5-10.1); Potassium 3.7 mmol/L (3.5-5.1)
[2021-10-13 15:01] LABS: BUN/Creatinine Ratio 19.6; Bilirubin, Total 0.4 mg/dL (0.2-1.0); Total Protein 6.7 g/dL (6.4-8.2)
[2021-10-13] MEDS ORDERED: NITROGLYCERIN 0.4 MG SL TAB SL PRN (19:00)
[2021-10-13] MEDS ORDERED: HYDROcodone-ACET 5/325MG TAB PO PRN (19:00)
[2021-10-13] MEDS ORDERED: ALUM & MAG HYDROX-SIMETH LIQ(MAALOX) 30 ML PO PRN (19:00)
[2021-10-13] MEDS ORDERED: ONDANSETRON HCL 4 MG/2 ML VIAL IV PRN (19:00)
[2021-10-13] MEDS ORDERED: SUCRALFATE 1 GM TAB PO ONE (19:00)
[2021-10-13] MEDS ORDERED: PANTOPRAZOLE 40 MG/10 ML VIAL INJ IV ONE (19:00)
[2021-10-13] MEDS ORDERED: ACETAMINOPHEN 325 MG TAB PO PRN (19:00)
[2021-10-13] MEDS ORDERED: MORPHINE SULFATE INJECTION 2 MG/ML SYRG IV PRN ×2 (19:00)
[2021-10-13] MEDS ORDERED: DEXTROSE (50%) 50ML SYRG IV PRN (19:00)
[2021-10-13] MEDS ORDERED: FLUCONAZOLE 100 MG TAB PO ONE (19:00)
[2021-10-13] MEDS: cefTRIAXone 1GM/50ML D5W 50 ML IV SCH (19:09)
[2021-10-13] MEDS: SODIUM CHLORIDE 0.9% 1,000 ML IV SCH (19:09)
[2021-10-13] MEDS ORDERED: TEMAZEPAM 15 MG CAP PO PRN (22:00)
[2021-10-13] MEDS: InsuLIN REG 1unit/0.01ml Soln (100units/ml) SC SCH (23:57)
[2021-10-13] MEDS: ACCU-CHEK COMFORT CURVE STRIP VI SCH (23:57)
[2021-10-14 06:00] VITALS: BP_SYST 132; BP_SYST 98; BP_DIAS 59; BP_DIAS 79
[2021-10-14 06:25] LABS: Albumin 2.9 g/dL (3.4-5.0); Calcium 8.2 mg/dL (8.5-10.1); Magnesium 2.4 mg/dL (1.6-2.6); Potassium 3.6 mmol/L (3.5-5.1)
[2021-10-14 06:32] LABS: BUN/Creatinine Ratio 19.7; Bilirubin, Total 0.5 mg/dL (0.2-1.0); Total Protein 6.5 g/dL (6.4-8.2)
[2021-10-14] MEDS: InsuLIN REG 1unit/0.01ml Soln (100units/ml) SC SCH ×4 (06:57→21:49)
[2021-10-14] MEDS: ACCU-CHEK COMFORT CURVE STRIP VI SCH ×4 (07:00→21:45)
[2021-10-14] MEDS: FLUCONAZOLE 100 MG TAB PO SCH (10:10)
[2021-10-14] MEDS: cefTRIAXone 1GM/50ML D5W 50 ML IV SCH (10:10)
[2021-10-14 13:00] VITALS: BP_SYST 115; BP_SYST 99; BP_DIAS 52; BP_DIAS 64
[2021-10-14 17:00] VITALS: BP 118/57
[2021-10-14 22:00] VITALS: BP 101/59
[2021-10-15] MEDS: SODIUM CHLORIDE 0.9% 1,000 ML IV SCH ×3 (01:00→21:00)
[2021-10-15 05:00] VITALS: BP 108/60
[2021-10-15] MEDS: ACCU-CHEK COMFORT CURVE STRIP VI SCH ×4 (06:02→21:29)
[2021-10-15] MEDS: InsuLIN REG 1unit/0.01ml Soln (100units/ml) SC SCH ×4 (06:08→21:31)
[2021-10-15 08:00] VITALS: BP 106/61
[2021-10-15] MEDS: FLUCONAZOLE 100 MG TAB PO SCH (08:16)
[2021-10-15] MEDS: cefTRIAXone 1GM/50ML D5W 50 ML IV SCH (08:16)
[2021-10-15 09:00] VITALS: BP 106/61
[2021-10-15 13:00] VITALS: BP 125/64
[2021-10-15 17:00] VITALS: BP 136/72
[2021-10-15 21:41] VITALS: BP 116/60
[2021-10-16 05:00] VITALS: BP 125/65
[2021-10-16] MEDS: ACCU-CHEK COMFORT CURVE STRIP VI SCH ×4 (06:18→21:40)
[2021-10-16] MEDS: InsuLIN REG 1unit/0.01ml Soln (100units/ml) SC SCH ×4 (06:21→21:30)
[2021-10-16 09:12] VITALS: BP 122/73
[2021-10-16] MEDS: FLUCONAZOLE 100 MG TAB PO SCH (09:20)
[2021-10-16] MEDS: cefTRIAXone 1GM/50ML D5W 50 ML IV SCH (09:20)
[2021-10-16] MEDS: SODIUM CHLORIDE 0.9% 1,000 ML IV SCH (13:40)
[2021-10-16 15:06] VITALS: BP 144/67
[2021-10-16 22:00] VITALS: BP 132/76
[2021-10-17 05:00] VITALS: BP 134/78
[2021-10-17] MEDS: ACCU-CHEK COMFORT CURVE STRIP VI SCH ×4 (06:01→22:19)
[2021-10-17] MEDS: InsuLIN REG 1unit/0.01ml Soln (100units/ml) SC SCH ×4 (06:02→22:23)
[2021-10-17] MEDS: SODIUM CHLORIDE 0.9% 1,000 ML IV SCH ×2 (06:20→22:27)
[2021-10-17 08:21] VITALS: BP 123/71
[2021-10-17] MEDS: cefTRIAXone 1GM/50ML D5W 50 ML IV SCH (09:18)
[2021-10-17] MEDS: FLUCONAZOLE 100 MG TAB PO SCH (09:19)
[2021-10-17 12:22] VITALS: BP 118/70
[2021-10-17 17:11] VITALS: BP 125/68
[2021-10-17 20:00] VITALS: BP 97/57
[2021-10-17 22:00] VITALS: BP 97/57
[2021-10-18 05:00] VITALS: BP 108/65
[2021-10-18] MEDS: InsuLIN REG 1unit/0.01ml Soln (100units/ml) SC SCH ×4 (06:19→22:00)
[2021-10-18] MEDS: ACCU-CHEK COMFORT CURVE STRIP VI SCH ×4 (06:20→23:07)
[2021-10-18 08:50] VITALS: BP 105/67
[2021-10-18] MEDS: FLUCONAZOLE 100 MG TAB PO SCH (09:23)
[2021-10-18] MEDS: cefTRIAXone 1GM/50ML D5W 50 ML IV SCH (09:23)
[2021-10-18 12:51] VITALS: BP 106/62
[2021-10-18 16:53] VITALS: BP 121/69
[2021-10-18] MEDS: SODIUM CHLORIDE 0.9% 1,000 ML IV SCH (17:52)
[2021-10-18 20:00] VITALS: BP 128/55
[2021-10-18] MEDS ORDERED: LORazepam 2MG/ML-1ML VIAL IV PRN (21:00)
[2021-10-18 22:00] VITALS: BP 128/55
[2021-10-19 05:00] VITALS: BP 113/65
[2021-10-19] MEDS: ACCU-CHEK COMFORT CURVE STRIP VI SCH ×2 (06:16→11:30)
[2021-10-19] MEDS: InsuLIN REG 1unit/0.01ml Soln (100units/ml) SC SCH ×2 (06:17→13:43)
[2021-10-19 08:52] VITALS: BP 108/63
[2021-10-19] MEDS: SODIUM CHLORIDE 0.9% 1,000 ML IV SCH ×2 (09:18→10:18)
[2021-10-19] MEDS: cefTRIAXone 1GM/50ML D5W 50 ML IV SCH (09:18)
[2021-10-19] MEDS: FLUCONAZOLE 100 MG TAB PO SCH (09:19)
[2021-10-19 13:00] VITALS: BP 127/70
== END 2021-10-19 14:45 | disposition home or self-care (01) | DRG 48 ==
LOC: ER 12:52 → OVERFLOW 18:47 → WEST WING 21:30
PROVIDERS: ADMIT Internal Medicine; ATTEND Internal Medicine
DX: E11.43 Type 2 diabetes mellitus with diabetic autonomic (poly)neuropathy (principal); E11.65 Type 2 diabetes mellitus with hyperglycemia; N39.0 Urinary tract infection, site not specified; E11.42 Type 2 diabetes mellitus with diabetic polyneuropathy; K31.84 Gastroparesis; F17.210 Nicotine dependence, cigarettes, uncomplicated; J45.909 Unspecified asthma, uncomplicated; K52.9 Noninfective gastroenteritis and colitis, unspecified; I10 Essential (primary) hypertension; Z20.822 Contact with and (suspected) exposure to COVID-19; Z83.3 Family history of diabetes mellitus; Z87.442 Personal history of urinary calculi; Z90.49 Acquired absence of other specified parts of digestive tract
CPT/HCPCS: 36415; 70551; 71045; 74176; 80053; 81001; 82962; 83036; 83690; 83735; 83880; 84100; 84484; 85025; 87086; 87088; 87426; 93005; 96361; 96365; 96375; 97163; C9113; G0378; J0696; J1815

== ENCOUNTER 2021-10-22 06:04 | Inpatient (IN) | payer MEDICARE, OTHER ==
[~2021-10-22] VITALS: Ht 152.4 cm; Wt 51.9 kg
[2021-10-22 07:29] LABS: Basophils # (auto) 0.1 10 ^3/uL (0-0.2); Basophils % (auto) 1.3 % (0.0-2.0); Eosinophils # (auto) 0 10 ^3/uL (0-0.8); Hematocrit 37.8 % (36.0-46.0); Hemoglobin 12.9 g/dL (12.2-16.2); Lymphocytes # (auto) 1.6 10 ^3/uL (0.4-5.4); Mean Corpuscular Hemoglobin 32.2 pg (28.0-32.0); Mean Corpuscular Volume 94.6 fL (80.0-100.0); Monocytes # (auto) 0.3 10 ^3/uL (0-1.3); Monocytes % (auto) 4.8 % (0.0-12.0); Neutrophils # (auto) 4.7 10 ^3/uL (1.6-8.6); Neutrophils % (auto) 69.9 % (37.0-80.0); White Blood Cell 6.7 10^3/uL (4.4-10.8)
[2021-10-22 07:44] LABS: Potassium 4.2 mmol/L (3.5-5.1)
[2021-10-22 07:50] LABS: BUN/Creatinine Ratio 24.3; Bilirubin, Total 0.3 mg/dL (0.2-1.0); Calcium 8.8 mg/dL (8.5-10.1); Total Protein 6.4 g/dL (6.4-8.2)
[2021-10-22] MEDS ORDERED: HYDROcodone-ACET 5/325MG TAB PO ONE (11:15)
[2021-10-22] MEDS ORDERED: DEXTROSE (50%) 50ML SYRG IV PRN (14:15)
[2021-10-22] MEDS ORDERED: LORazepam 0.5 MG TAB PO PRN (14:15)
[2021-10-22] MEDS ORDERED: hydrALAZINE HCL 20 MG/ML VL IV PRN (14:15)
[2021-10-22] MEDS ORDERED: MORPHINE SULFATE INJECTION 2 MG/ML SYRG IV PRN (14:15)
[2021-10-22] MEDS ORDERED: NITROGLYCERIN 0.4 MG SL TAB SL PRN (14:15)
[2021-10-22] MEDS ORDERED: ONDANSETRON HCL 4 MG/2 ML VIAL IV PRN (14:15)
[2021-10-22] MEDS ORDERED: SODIUM CHLORIDE 0.9% 500 ML IV ONE (14:15)
[2021-10-22] MEDS ORDERED: DOCUSATE CALCIUM 240 MG CAP PO PRN (14:15)
[2021-10-22] MEDS ORDERED: ACETAMINOPHEN 500 MG TAB PO PRN (14:15)
[2021-10-22 15:26] LABS: INR 0.99 (0.9-1.15); Partial Thromboplastin Time 24.2 sec (23.6-33.0)
[2021-10-22 15:59] VITALS: BP 109/61
[2021-10-22] MEDS: ACCU-CHEK COMFORT CURVE STRIP VI SCH ×2 (16:34→20:53)
[2021-10-22] MEDS: InsuLIN REG 1unit/0.01ml Soln (100units/ml) SC SCH ×2 (16:37→20:54)
[2021-10-22] MEDS: MORPHINE SULFATE 4 MG/ML SYR/VIAL IV PRN (18:52)
[2021-10-22] MEDS: BUDESONIDE (INHALATION) 0.5 MG/2 ML NEB NEB SCH (19:51)
[2021-10-22] MEDS: INSULIN LANTUS (GLARGINE) 1 /0.01ml (100units/ml) SC SCH (20:53)
[2021-10-22 21:00] VITALS: BP 126/65
[2021-10-23] MEDS: ACCU-CHEK COMFORT CURVE STRIP VI SCH ×7 (00:25→23:18)
[2021-10-23] MEDS: InsuLIN REG 1unit/0.01ml Soln (100units/ml) SC SCH ×8 (00:36→23:12)
[2021-10-23] MEDS: INSULIN LANTUS (GLARGINE) 1 /0.01ml (100units/ml) SC SCH (05:08)
[2021-10-23 06:00] VITALS: BP 105/52
[2021-10-23 07:53] LABS: Basophils # (auto) 0.1 10 ^3/uL (0-0.2); Eosinophils # (auto) 0 10 ^3/uL (0-0.8); Hematocrit 36.1 % (36.0-46.0); Hemoglobin 12.4 g/dL (12.2-16.2); Lymphocytes # (auto) 1.3 10 ^3/uL (0.4-5.4); Lymphocytes % (auto) 12.6 % (10.0-50.0); Mean Corpuscular Hgb Conc. 34.2 g/dL (32.0-36.0); Mean Corpuscular Volume 93.6 fL (80.0-100.0); Monocytes # (auto) 0.4 10 ^3/uL (0-1.3); Monocytes % (auto) 4.4 % (0.0-12.0); Neutrophils # (auto) 8.2 10 ^3/uL (1.6-8.6); Red Blood Cells 3.86 10^6/uL (4.0-5.20); Red Cell Distribution Width 12.9 % (11.8-14.3)
[2021-10-23 08:05] VITALS: BP 107/57
[2021-10-23 08:08] LABS: Potassium 3.8 mmol/L (3.5-5.1)
[2021-10-23 08:16] LABS: Albumin 2.9 g/dL (3.4-5.0); BUN/Creatinine Ratio 30.9; Bilirubin, Total 0.5 mg/dL (0.2-1.0); Calcium 8.4 mg/dL (8.5-10.1); Total Protein 6.2 g/dL (6.4-8.2)
[2021-10-23] MEDS: PANTOPRAZOLE 40 MG TAB PO SCH (08:49)
[2021-10-23] MEDS: MORPHINE SULFATE 4 MG/ML SYR/VIAL IV PRN (08:51)
[2021-10-23 09:00] VITALS: BP 107/57
[2021-10-23] MEDS: NICOTINE 7MG/24HR TOPICAL PATCH TD SCH (10:00)
[2021-10-23] MEDS: BUDESONIDE (INHALATION) 0.5 MG/2 ML NEB NEB SCH ×2 (10:08→22:04)
[2021-10-23] MEDS: ENOXAPARIN SOD 40 MG/0.4 ML SYRINGE SC SCH (12:22)
[2021-10-23 13:00] VITALS: BP 110/55
[2021-10-23 17:00] VITALS: BP 126/58
[2021-10-23 20:15] VITALS: BP 116/60
[2021-10-23] MEDS ORDERED: ZOLPIDEM TARTRATE 5 MG TAB PO PRN (22:00)
[2021-10-24 05:00] VITALS: BP 95/55
[2021-10-24 06:20] LABS: Urine Bacteria FEW /hpf (None Seen); Urine Blood Negative /uL (Negative); Urine Specific Gravity 1.018 (1.001-1.035); Urine WBC 27 /hpf (0 - 5)
[2021-10-24] MEDS: ACCU-CHEK COMFORT CURVE STRIP VI SCH ×4 (06:27→23:44)
[2021-10-24] MEDS: MORPHINE SULFATE 4 MG/ML SYR/VIAL IV PRN (06:28)
[2021-10-24] MEDS: InsuLIN REG 1unit/0.01ml Soln (100units/ml) SC SCH ×4 (06:36→23:32)
[2021-10-24] MEDS ORDERED: BUPIVACAINE 0.25% INJ 50ML VIAL ONE (07:51)
[2021-10-24] MEDS ORDERED: VANCOMYCIN HCL 1000 MG VL ONE (07:53)
[2021-10-24] MEDS ORDERED: KETOROLAC TROMETH 30 MG/ML 1ML VIAL ONE (07:53)
[2021-10-24] MEDS ORDERED: ceFAZolin 1GM/50ML 100 ML IV ONE (08:36)
[2021-10-24 09:00] VITALS: BP 103/59
[2021-10-24] MEDS ORDERED: MORPHINE SULF PF 2 MG/2 ML SYRG ONE (09:43)
[2021-10-24] MEDS ORDERED: ePHEDrine SULFATE 50 MG/ML AMP ONE (09:50)
[2021-10-24] MEDS ORDERED: ONDANSETRON HCL 4 MG/2 ML VIAL ONE (09:50)
[2021-10-24] MEDS ORDERED: DexAMETHasone SOD PHOS 10MG/1ML VIAL INJ ONE (09:50)
[2021-10-24] MEDS ORDERED: LIDOCAINE 2% (LOCAL ANESTH.) PF 5ml SDV ONE (09:50)
[2021-10-24] MEDS ORDERED: PROPOFOL 10 MG/ML 20 ML IV ONE (09:50)
[2021-10-24] MEDS: ENOXAPARIN SOD 40 MG/0.4 ML SYRINGE SC SCH (10:00)
[2021-10-24] MEDS: NICOTINE 7MG/24HR TOPICAL PATCH TD SCH (10:00)
[2021-10-24] MEDS: PANTOPRAZOLE 40 MG TAB PO SCH (10:00)
[2021-10-24] MEDS ORDERED: fentaNYL CITRATE 100 MCG/2 ML VL ONE ×2 (10:12→10:45)
[2021-10-24] MEDS: TRANEXAMIC ACID 20 ML ONE ×2 (10:21→10:55)
[2021-10-24] MEDS: LACTATED RINGER'S 1,000 ML IV SCH ×2 (11:15→21:15)
[2021-10-24] MEDS: ceFAZolin 1GM/50ML 50 ML IV SCH ×3 (11:15→20:33)
[2021-10-24] MEDS ORDERED: hydrALAZINE HCL 20 MG/ML VL IV PRN (11:30)
[2021-10-24] MEDS ORDERED: HYDROmorphone HCL 2 MG/ML VL IV PRN ×2 (11:30)
[2021-10-24] MEDS ORDERED: LABETALOL HCL 5 MG/ML 4ML SYRINGE IV PRN (11:30)
[2021-10-24] MEDS ORDERED: NALOXONE HCL 0.4 MG/ML VIAL IV PRN (11:30)
[2021-10-24 13:00] VITALS: BP 104/60
[2021-10-24] MEDS: SODIUM CHLOR 0.9% PF (SALINE LOCK) 10ML VIAL/SYR IV SCH ×2 (14:25→21:44)
[2021-10-24] MEDS: BUDESONIDE (INHALATION) 0.5 MG/2 ML NEB NEB SCH ×2 (15:56→22:32)
[2021-10-24 18:00] VITALS: BP 81/49
[2021-10-24 18:15] VITALS: BP 105/56
[2021-10-24] MEDS: IPRATROPIUM BROM 0.5 MG/2.5ML INH SOL NEB PRN (19:28)
[2021-10-24] MEDS: ALBUTEROL SULF 2.5 MG/0.5ML(0.5%) NEB SOLN NEB PRN (19:28)
[2021-10-24 22:00] VITALS: BP 98/44
[2021-10-24] MEDS: INSULIN LANTUS (GLARGINE) 1 /0.01ml (100units/ml) SC SCH (23:19)
[2021-10-25] MEDS: ceFAZolin 1GM/50ML 50 ML IV SCH (02:33)
[2021-10-25 05:00] VITALS: BP 109/59
[2021-10-25] MEDS: SODIUM CHLOR 0.9% PF (SALINE LOCK) 10ML VIAL/SYR IV SCH ×3 (05:59→22:21)
[2021-10-25] MEDS: ACCU-CHEK COMFORT CURVE STRIP VI SCH ×3 (06:00→18:00)
[2021-10-25] MEDS: InsuLIN REG 1unit/0.01ml Soln (100units/ml) SC SCH ×3 (06:09→18:00)
[2021-10-25] MEDS: LACTATED RINGER'S 1,000 ML IV SCH ×2 (07:15→17:15)
[2021-10-25] MEDS: MORPHINE SULFATE 4 MG/ML SYR/VIAL IV PRN (09:50)
[2021-10-25] MEDS: ENOXAPARIN SOD 40 MG/0.4 ML SYRINGE SC SCH (10:00)
[2021-10-25] MEDS: PANTOPRAZOLE 40 MG TAB PO SCH (10:00)
[2021-10-25] MEDS: NICOTINE 7MG/24HR TOPICAL PATCH TD SCH (10:00)
[2021-10-25] MEDS: BUDESONIDE (INHALATION) 0.5 MG/2 ML NEB NEB SCH ×2 (10:04→21:56)
[2021-10-25 11:31] VITALS: BP 109/59
[2021-10-25 16:49] VITALS: BP 114/61
[2021-10-25 22:58] VITALS: BP 118/5
[2021-10-26] MEDS: InsuLIN REG 1unit/0.01ml Soln (100units/ml) SC SCH ×4 (00:05→18:38)
[2021-10-26] MEDS: ACCU-CHEK COMFORT CURVE STRIP VI SCH ×4 (00:13→18:00)
[2021-10-26 05:23] VITALS: BP 126/67
[2021-10-26] MEDS: SODIUM CHLOR 0.9% PF (SALINE LOCK) 10ML VIAL/SYR IV SCH ×3 (06:00→21:53)
[2021-10-26] MEDS: NICOTINE 7MG/24HR TOPICAL PATCH TD SCH (07:59)
[2021-10-26] MEDS: ENOXAPARIN SOD 40 MG/0.4 ML SYRINGE SC SCH (07:59)
[2021-10-26] MEDS: PANTOPRAZOLE 40 MG TAB PO SCH (07:59)
[2021-10-26 08:00] VITALS: BP 113/57
[2021-10-26] MEDS: ALBUTEROL SULF 2.5 MG/0.5ML(0.5%) NEB SOLN NEB PRN ×2 (10:53→19:21)
[2021-10-26] MEDS: IPRATROPIUM BROM 0.5 MG/2.5ML INH SOL NEB PRN ×2 (10:53→19:21)
[2021-10-26] MEDS: BUDESONIDE (INHALATION) 0.5 MG/2 ML NEB NEB SCH ×2 (10:53→19:21)
[2021-10-26 12:00] VITALS: BP 106/55
[2021-10-26 16:00] VITALS: BP 117/62
[2021-10-26 22:00] VITALS: BP 96/53
[2021-10-26] MEDS: INSULIN LANTUS (GLARGINE) 1 /0.01ml (100units/ml) SC SCH ×2 (22:02)
[2021-10-27] MEDS: InsuLIN REG 1unit/0.01ml Soln (100units/ml) SC SCH ×4 (00:14→17:47)
[2021-10-27] MEDS: ACCU-CHEK COMFORT CURVE STRIP VI SCH ×4 (00:18→17:47)
[2021-10-27 05:00] VITALS: BP 102/63
[2021-10-27] MEDS: SODIUM CHLOR 0.9% PF (SALINE LOCK) 10ML VIAL/SYR IV SCH ×3 (06:27→22:00)
[2021-10-27] MEDS: ENOXAPARIN SOD 40 MG/0.4 ML SYRINGE SC SCH (08:56)
[2021-10-27] MEDS: NICOTINE 7MG/24HR TOPICAL PATCH TD SCH (08:56)
[2021-10-27] MEDS: PANTOPRAZOLE 40 MG TAB PO SCH (08:56)
[2021-10-27 09:00] VITALS: BP 100/52
[2021-10-27] MEDS: BUDESONIDE (INHALATION) 0.5 MG/2 ML NEB NEB SCH ×2 (10:00→19:21)
[2021-10-27 13:00] VITALS: BP 113/62
[2021-10-27] MEDS: MORPHINE SULFATE 4 MG/ML SYR/VIAL IV PRN (13:00)
[2021-10-27 17:00] VITALS: BP 106/64
[2021-10-27] MEDS: ALBUTEROL SULF 2.5 MG/0.5ML(0.5%) NEB SOLN NEB PRN (19:21)
[2021-10-27] MEDS: IPRATROPIUM BROM 0.5 MG/2.5ML INH SOL NEB PRN (19:21)
[2021-10-27 22:00] VITALS: BP 100/51
[2021-10-27] MEDS: INSULIN LANTUS (GLARGINE) 1 /0.01ml (100units/ml) SC SCH (22:35)
[2021-10-28] MEDS: ACCU-CHEK COMFORT CURVE STRIP VI SCH ×5 (00:44→23:48)
[2021-10-28] MEDS: InsuLIN REG 1unit/0.01ml Soln (100units/ml) SC SCH ×5 (00:44→23:50)
[2021-10-28 05:00] VITALS: BP 107/70
[2021-10-28] MEDS: SODIUM CHLOR 0.9% PF (SALINE LOCK) 10ML VIAL/SYR IV SCH ×3 (06:17→21:38)
[2021-10-28 08:49] VITALS: BP 122/64
[2021-10-28] MEDS: PANTOPRAZOLE 40 MG TAB PO SCH (09:56)
[2021-10-28] MEDS: NICOTINE 7MG/24HR TOPICAL PATCH TD SCH (09:56)
[2021-10-28] MEDS: ENOXAPARIN SOD 40 MG/0.4 ML SYRINGE SC SCH (09:56)
[2021-10-28] MEDS: BUDESONIDE (INHALATION) 0.5 MG/2 ML NEB NEB SCH ×2 (10:34→21:36)
[2021-10-28] MEDS: MORPHINE SULFATE 4 MG/ML SYR/VIAL IV PRN (11:53)
[2021-10-28 12:35] VITALS: BP 101/58
[2021-10-28 16:34] VITALS: BP 100/54
[2021-10-28] MEDS: INSULIN LANTUS (GLARGINE) 1 /0.01ml (100units/ml) SC SCH (21:51)
[2021-10-28 22:00] VITALS: BP 111/69
[2021-10-29 05:00] VITALS: BP 108/70
[2021-10-29] MEDS: ACCU-CHEK COMFORT CURVE STRIP VI SCH ×4 (06:35→23:51)
[2021-10-29] MEDS: SODIUM CHLOR 0.9% PF (SALINE LOCK) 10ML VIAL/SYR IV SCH ×3 (06:36→21:20)
[2021-10-29] MEDS: InsuLIN REG 1unit/0.01ml Soln (100units/ml) SC SCH ×4 (06:38→23:54)
[2021-10-29] MEDS: BUDESONIDE (INHALATION) 0.5 MG/2 ML NEB NEB SCH ×2 (06:54→22:48)
[2021-10-29 09:00] VITALS: BP 100/60
[2021-10-29] MEDS: NICOTINE 7MG/24HR TOPICAL PATCH TD SCH (10:00)
[2021-10-29] MEDS: PANTOPRAZOLE 40 MG TAB PO SCH (10:42)
[2021-10-29] MEDS: ENOXAPARIN SOD 40 MG/0.4 ML SYRINGE SC SCH (10:42)
[2021-10-29] MEDS: MORPHINE SULFATE 4 MG/ML SYR/VIAL IV PRN (10:43)
[2021-10-29 11:00] VITALS: BP 108/61
[2021-10-29 16:50] VITALS: BP 121/66
[2021-10-29] MEDS: INSULIN LANTUS (GLARGINE) 1 /0.01ml (100units/ml) SC SCH (21:21)
[2021-10-29 22:00] VITALS: BP 118/64
[2021-10-29] MEDS: IPRATROPIUM BROM 0.5 MG/2.5ML INH SOL NEB PRN (22:48)
[2021-10-29] MEDS: ALBUTEROL SULF 2.5 MG/0.5ML(0.5%) NEB SOLN NEB PRN (22:48)
[2021-10-30 05:15] VITALS: BP 129/71
[2021-10-30] MEDS: SODIUM CHLOR 0.9% PF (SALINE LOCK) 10ML VIAL/SYR IV SCH ×2 (05:40→14:00)
[2021-10-30] MEDS: ACCU-CHEK COMFORT CURVE STRIP VI SCH ×2 (05:42→12:00)
[2021-10-30] MEDS: InsuLIN REG 1unit/0.01ml Soln (100units/ml) SC SCH ×2 (05:43→15:02)
[2021-10-30 09:00] VITALS: BP 112/61
[2021-10-30] MEDS: PANTOPRAZOLE 40 MG TAB PO SCH (09:34)
[2021-10-30] MEDS: ENOXAPARIN SOD 40 MG/0.4 ML SYRINGE SC SCH (09:34)
[2021-10-30] MEDS: NICOTINE 7MG/24HR TOPICAL PATCH TD SCH (09:35)
[2021-10-30] MEDS: BUDESONIDE (INHALATION) 0.5 MG/2 ML NEB NEB SCH (09:38)
[2021-10-30] MEDS: IPRATROPIUM BROM 0.5 MG/2.5ML INH SOL NEB PRN (09:40)
[2021-10-30] MEDS: ALBUTEROL SULF 2.5 MG/0.5ML(0.5%) NEB SOLN NEB PRN (09:40)
[2021-10-30 13:00] VITALS: BP 105/65
[2021-10-30 16:54] VITALS: BP 99/59
== END 2021-10-30 18:11 | disposition home health service (06) | DRG 323 ==
LOC: EDBD 06:04 → ER 06:04 → TELE 14:11 → TELE-WESTW 19:59
PROVIDERS: ADMIT Family Medicine; ATTEND Internal Medicine
PROC: 0SRS0JZ Replacement of Left Hip Joint, Femoral Surface with Synthetic Substitute, Open Approach (ICD-10-PCS; principal; 2021-10-24 09:55)
DX: S72.002A Fracture of unspecified part of neck of left femur, initial encounter for closed fracture (principal); E44.1 Mild protein-calorie malnutrition; E87.1 Hypo-osmolality and hyponatremia; E86.0 Dehydration; E11.65 Type 2 diabetes mellitus with hyperglycemia; J45.909 Unspecified asthma, uncomplicated; I10 Essential (primary) hypertension; Z20.822 Contact with and (suspected) exposure to COVID-19; W01.0XXA Fall on same level from slipping, tripping and stumbling without subsequent striking against object, initial encounter; F17.210 Nicotine dependence, cigarettes, uncomplicated; Z82.49 Family history of ischemic heart disease and other diseases of the circulatory system; Z68.22 Body mass index [BMI] 22.0-22.9, adult; Z83.3 Family history of diabetes mellitus; Z87.442 Personal history of urinary calculi; Z90.49 Acquired absence of other specified parts of digestive tract; Y93.89 Activity, other specified; Y92.89 Other specified places as the place of occurrence of the external cause; Y99.8 Other external cause status
CPT/HCPCS: 36415; 70450; 71045; 72170; 73501; 73502; 73620; 73630; 73700; 80053; 81001; 82962; 84443; 84484; 85025; 85610; 85730; 86850; 86900; 86901; 87081; 87426; 93005; 93306; 94640; 96361; 96374; 97110; 97116; 97163; 97530; G0378; J0690; J1100; J1815; J1885; J2001; J2405; J2704; J3490

== ENCOUNTER 2021-11-23 11:57 | Emergency (ER) | payer MEDICARE, OTHER ==
[~2021-11-23] VITALS: Ht 160 cm; Wt 50.3 kg
[2021-11-23 13:38] LABS: Basophils # (auto) 0.1 10 ^3/uL (0-0.2); Basophils % (auto) 1.5 % (0.0-2.0); Eosinophils # (auto) 0 10 ^3/uL (0-0.8); Eosinophils % (auto) 0.1 % (0.0-7.0); Hemoglobin 13.2 g/dL (12.2-16.2); Lymphocytes # (auto) 1.7 10 ^3/uL (0.4-5.4); Lymphocytes % (auto) 24.2 % (10.0-50.0); Mean Corpuscular Hemoglobin 31.5 pg (28.0-32.0); Mean Corpuscular Hgb Conc. 33.9 g/dL (32.0-36.0); Mean Corpuscular Volume 92.9 fL (80.0-100.0); Monocytes # (auto) 0.3 10 ^3/uL (0-1.3); Monocytes % (auto) 4.4 % (0.0-12.0); Neutrophils # (auto) 4.9 10 ^3/uL (1.6-8.6); Neutrophils % (auto) 69.8 % (37.0-80.0); Red Cell Distribution Width 13.6 % (11.8-14.3); White Blood Cell 7.1 10^3/uL (4.4-10.8)
[2021-11-23 13:57] LABS: Albumin 3.5 g/dL (3.4-5.0); Calcium 9.1 mg/dL (8.5-10.1); Potassium 3.6 mmol/L (3.5-5.1)
[2021-11-23 14:09] LABS: Bilirubin, Total 0.3 mg/dL (0.2-1.0); Total Protein 7.4 g/dL (6.4-8.2)
[2021-11-23 17:54] VITALS: BP 133/88
== END 2021-11-23 17:55 | disposition home or self-care (01) ==
LOC: ER 11:57
DX: M25.552 Pain in left hip (principal); I10 Essential (primary) hypertension; J45.909 Unspecified asthma, uncomplicated; E11.9 Type 2 diabetes mellitus without complications; F17.210 Nicotine dependence, cigarettes, uncomplicated; Z90.49 Acquired absence of other specified parts of digestive tract; Z90.89 Acquired absence of other organs; Z79.1 Long term (current) use of non-steroidal anti-inflammatories (NSAID); Z79.899 Other long term (current) drug therapy; Z20.822 Contact with and (suspected) exposure to COVID-19
CPT/HCPCS: 36415; 71045; 80053; 84484; 85025; 85379; 87426; 93005; 93971

== ENCOUNTER 2021-12-01 10:39 | Emergency (ER) | payer MEDICARE, OTHER ==
[~2021-12-01] VITALS: Ht 167.6 cm; Wt 83.0 kg
[2021-12-01 14:03] LABS: Basophils # (auto) 0.1 10 ^3/uL (0-0.2); Basophils % (auto) 1.1 % (0.0-2.0); Eosinophils # (auto) 0 10 ^3/uL (0-0.8); Hemoglobin 13.3 g/dL (12.2-16.2); Lymphocytes # (auto) 1.7 10 ^3/uL (0.4-5.4); Lymphocytes % (auto) 20.8 % (10.0-50.0); Mean Corpuscular Hemoglobin 31.3 pg (28.0-32.0); Mean Corpuscular Hgb Conc. 34.1 g/dL (32.0-36.0); Mean Corpuscular Volume 91.9 fL (80.0-100.0); Monocytes # (auto) 0.4 10 ^3/uL (0-1.3); Monocytes % (auto) 4.7 % (0.0-12.0); Neutrophils % (auto) 73.4 % (37.0-80.0); Nucleated Red Blood Cells % 0.1 %; Red Blood Cells 4.24 10^6/uL (4.0-5.20); Red Cell Distribution Width 13.6 % (11.8-14.3); White Blood Cell 8.1 10^3/uL (4.4-10.8)
[2021-12-01 14:17] LABS: Albumin 3.7 g/dL (3.4-5.0); BUN/Creatinine Ratio 14.4; Calcium 9.6 mg/dL (8.5-10.1); Potassium 3.9 mmol/L (3.5-5.1)
[2021-12-01 14:29] LABS: Bilirubin, Total 0.5 mg/dL (0.2-1.0); Total Protein 7.8 g/dL (6.4-8.2)
[2021-12-01] MEDS ORDERED: METR500T PO (15:55)
[2021-12-01] MEDS ORDERED: CIPR-173 PO (15:55)
[2021-12-01] MEDS ORDERED: PERCOT PO (15:55)
[2021-12-01] MEDS ORDERED: ONDA-144 PO (15:55)
[2021-12-01] MEDS ORDERED: InsuLIN REG 1unit/0.01ml Soln (100units/ml) IV ONE (16:00)
[2021-12-01] MEDS ORDERED: SODIUM CHLORIDE 0.9% 1,000 ML IV ONE (16:00)
[2021-12-01] MEDS ORDERED: metroNIDAZOLE 500 MG TAB PO ONE (16:00)
[2021-12-01 18:37] VITALS: BP 127/82
== END 2021-12-01 18:39 | disposition home or self-care (01) ==
LOC: ER 10:39
DX: K57.30 Diverticulosis of large intestine without perforation or abscess without bleeding (principal); E11.65 Type 2 diabetes mellitus with hyperglycemia; I10 Essential (primary) hypertension; J45.909 Unspecified asthma, uncomplicated; F17.210 Nicotine dependence, cigarettes, uncomplicated; Z90.49 Acquired absence of other specified parts of digestive tract; Z90.89 Acquired absence of other organs; Z79.4 Long term (current) use of insulin; Z79.1 Long term (current) use of non-steroidal anti-inflammatories (NSAID); Z79.899 Other long term (current) drug therapy; Z20.822 Contact with and (suspected) exposure to COVID-19
CPT/HCPCS: 36415; 71045; 74176; 80053; 83880; 84484; 85025; 87426; 93005; 96361; 96374; 99285; J1815; J7030

== ENCOUNTER 2021-12-23 11:05 | Emergency (ER) | payer MEDICARE, OTHER ==
[~2021-12-23] VITALS: Ht 157.5 cm; Wt 47.2 kg
[~2021-12-23 11:05] MED LIST changes: +CIPR-173 PO; +METR500T PO; +ONDA-144 PO; +PERCOT PO
[2021-12-23 12:12] LABS: Basophils # (auto) 0.1 10 ^3/uL (0-0.2); Basophils % (auto) 1.3 % (0.0-2.0); Eosinophils # (auto) 0 10 ^3/uL (0-0.8); Hematocrit 39.9 % (36.0-46.0); Hemoglobin 13.8 g/dL (12.2-16.2); Lymphocytes # (auto) 1.8 10 ^3/uL (0.4-5.4); Lymphocytes % (auto) 30.8 % (10.0-50.0); Mean Corpuscular Hemoglobin 31.7 pg (28.0-32.0); Mean Corpuscular Hgb Conc. 34.6 g/dL (32.0-36.0); Mean Corpuscular Volume 91.4 fL (80.0-100.0); Monocytes # (auto) 0.3 10 ^3/uL (0-1.3); Monocytes % (auto) 4.3 % (0.0-12.0); Neutrophils # (auto) 3.8 10 ^3/uL (1.6-8.6); Neutrophils % (auto) 63.6 % (37.0-80.0); Nucleated Red Blood Cells % 0.1 %; Red Blood Cells 4.37 10^6/uL (4.0-5.20); Red Cell Distribution Width 14.1 % (11.8-14.3)
[2021-12-23 12:15] LABS: Urine Bacteria FEW /hpf (None Seen); Urine Blood 1+ /uL (Negative); Urine Budding Yeast MANY /hpf (None Seen); Urine Mucus FEW (None Seen); Urine Specific Gravity 1.021 (1.001-1.035); Urine WBC 718 /hpf (0 - 5); Urine WBC Clumps PRESENT /hpf (None Seen)
[2021-12-23 12:29] LABS: Albumin 3.7 g/dL (3.4-5.0); Potassium 3.1 mmol/L (3.5-5.1)
[2021-12-23 12:45] LABS: BUN/Creatinine Ratio 15.2; Bilirubin, Total 0.6 mg/dL (0.2-1.0); Total Protein 7.6 g/dL (6.4-8.2)
[2021-12-23] MEDS ORDERED: NITR-87 PO (12:57)
[2021-12-23] MEDS ORDERED: cefTRIAXone W LIDOCAINE 1 GM IM IM ONE (13:00)
[2021-12-23] MEDS ORDERED: POTASSIUM EFFERVESENT TAB 25 MEQ PO ONE (13:00)
[2021-12-23] MEDS ORDERED: cefTRIAXone SOD 1,000 MG VL ONE (13:23)
[2021-12-23 13:39] VITALS: BP 140/82
== END 2021-12-23 14:35 | disposition home or self-care (01) ==
LOC: ER 11:05 → EDBD 11:05 → ER 14:35
DX: N39.0 Urinary tract infection, site not specified (principal); E11.65 Type 2 diabetes mellitus with hyperglycemia; I10 Essential (primary) hypertension; J45.909 Unspecified asthma, uncomplicated; F17.210 Nicotine dependence, cigarettes, uncomplicated; Z90.49 Acquired absence of other specified parts of digestive tract; Z90.89 Acquired absence of other organs; Z79.4 Long term (current) use of insulin; Z79.2 Long term (current) use of antibiotics; Z79.899 Other long term (current) drug therapy
CPT/HCPCS: 36415; 74176; 80053; 81001; 83690; 84484; 85025; 93005; 96372; 99285; J0696

== ENCOUNTER 2021-12-31 12:55 | Inpatient (IN) | payer MEDICARE, OTHER ==
[~2021-12-31] VITALS: Ht 157.5 cm; Wt 54.0 kg
[~2021-12-31 12:55] MED LIST changes: +NITR-87 PO
[2021-12-31 14:36] LABS: Basophils # (auto) 0.1 10 ^3/uL (0-0.2); Eosinophils # (auto) 0 10 ^3/uL (0-0.8); Hematocrit 38.3 % (36.0-46.0); Hemoglobin 13.1 g/dL (12.2-16.2); Lymphocytes % (auto) 28.2 % (10.0-50.0); Mean Corpuscular Hemoglobin 31.1 pg (28.0-32.0); Mean Corpuscular Hgb Conc. 34.1 g/dL (32.0-36.0); Mean Corpuscular Volume 91.2 fL (80.0-100.0); Monocytes # (auto) 0.3 10 ^3/uL (0-1.3); Monocytes % (auto) 4.3 % (0.0-12.0); Neutrophils # (auto) 4.8 10 ^3/uL (1.6-8.6); Neutrophils % (auto) 66.5 % (37.0-80.0); Nucleated Red Blood Cells % 0.1 %; Red Cell Distribution Width 14.1 % (11.8-14.3); White Blood Cell 7.2 10^3/uL (4.4-10.8)
[2021-12-31 14:42] LABS: Albumin 3.3 g/dL (3.4-5.0); BUN/Creatinine Ratio 19.4; Calcium 8.8 mg/dL (8.5-10.1); Potassium 3.2 mmol/L (3.5-5.1)
[2021-12-31 14:44] LABS: Bilirubin, Total 0.5 mg/dL (0.2-1.0); Total Protein 6.7 g/dL (6.4-8.2)
[2021-12-31] MEDS: SUCRALFATE 1 GM/10 ML ORAL SUSP PO SCH ×3 (16:27→22:19)
[2021-12-31] MEDS: PANTOPRAZOLE 40 MG/10 ML VIAL INJ IV SCH ×2 (16:27→22:19)
[2021-12-31 16:56] LABS: INR 1.01 (0.9-1.15)
[2021-12-31 18:14] LABS: Urine Bacteria NONE SEEN /hpf (None Seen); Urine Blood TRACE /uL (Negative); Urine Budding Yeast LOADED /hpf (None Seen); Urine Mucus FEW (None Seen); Urine Specific Gravity 1.015 (1.001-1.035); Urine WBC 347 /hpf (0 - 5); Urine WBC Clumps PRESENT /hpf (None Seen)
[2021-12-31] MEDS ORDERED: HYDROcodone-ACET 5/325MG TAB PO PRN (18:15)
[2021-12-31] MEDS ORDERED: ONDANSETRON HCL 4 MG/2 ML VIAL IV PRN (18:15)
[2021-12-31] MEDS ORDERED: cefTRIAXone 1GM/50ML D5W 50 ML IV ONE (18:15)
[2021-12-31] MEDS ORDERED: ACETAMINOPHEN 325 MG TAB PO PRN (18:15)
[2021-12-31] MEDS ORDERED: MORPHINE SULFATE INJECTION 2 MG/ML SYRG IV PRN (18:15)
[2021-12-31] MEDS ORDERED: DEXTROSE (50%) 50ML SYRG IV PRN ×2 (18:15)
[2021-12-31] MEDS: SODIUM CHLORIDE 0.9% 1,000 ML IV SCH (19:52)
[2021-12-31] MEDS ORDERED: ALBUTEROL SULF 2.5 MG/0.5ML(0.5%) NEB SOLN NEB SCH (22:00)
[2021-12-31] MEDS ORDERED: ACCU-CHEK COMFORT CURVE STRIP VI SCH (22:00)
[2021-12-31] MEDS: hydrALAZINE HCL 20 MG/ML VL IV SCH (22:00)
[2021-12-31] MEDS ORDERED: InsuLIN REG 1unit/0.01ml Soln (100units/ml) SC SCH ×2 (22:00)
[2022-01-01 00:23] VITALS: BP 122/73
[2022-01-01] MEDS: ACCU-CHEK COMFORT CURVE STRIP VI SCH ×5 (03:46→23:36)
[2022-01-01 05:00] VITALS: BP 110/68
[2022-01-01 05:28] LABS: BUN/Creatinine Ratio 16.7; Calcium 8.5 mg/dL (8.5-10.1); Potassium 3.1 mmol/L (3.5-5.1)
[2022-01-01 05:35] LABS: Basophils # (auto) 0.1 10 ^3/uL (0-0.2); Basophils % (auto) 0.6 % (0.0-2.0); Eosinophils # (auto) 0 10 ^3/uL (0-0.8); Hematocrit 35.8 % (36.0-46.0); Hemoglobin 12.3 g/dL (12.2-16.2); Lymphocytes # (auto) 2.2 10 ^3/uL (0.4-5.4); Lymphocytes % (auto) 22.7 % (10.0-50.0); Mean Corpuscular Hemoglobin 31.1 pg (28.0-32.0); Mean Corpuscular Hgb Conc. 34.3 g/dL (32.0-36.0); Mean Corpuscular Volume 90.5 fL (80.0-100.0); Monocytes # (auto) 0.4 10 ^3/uL (0-1.3); Monocytes % (auto) 4.3 % (0.0-12.0); Neutrophils % (auto) 72.4 % (37.0-80.0); Red Blood Cells 3.95 10^6/uL (4.0-5.20); Red Cell Distribution Width 14.1 % (11.8-14.3); White Blood Cell 9.6 10^3/uL (4.4-10.8)
[2022-01-01] MEDS: hydrALAZINE HCL 20 MG/ML VL IV SCH ×3 (06:00→22:00)
[2022-01-01] MEDS: InsuLIN REG 1unit/0.01ml Soln (100units/ml) SC SCH ×5 (07:08→23:30)
[2022-01-01] MEDS: SUCRALFATE 1 GM/10 ML ORAL SUSP PO SCH ×4 (07:10→22:10)
[2022-01-01] MEDS ORDERED: LIDOCAINE VISCOUS 2% 15ML UD ONE (08:28)
[2022-01-01] MEDS ORDERED: SODIUM CHLORIDE LOCK 10 ML ONE (08:28)
[2022-01-01] MEDS ORDERED: diphenhdrAMINE HCL 50 MG/1 ML VL ONE (08:29)
[2022-01-01] MEDS ORDERED: ENOXAPARIN SOD 40 MG/0.4 ML SYRINGE SC SCH (10:00)
[2022-01-01] MEDS: SODIUM CHLORIDE 0.9% 1,000 ML IV SCH (10:55)
[2022-01-01] MEDS: PANTOPRAZOLE 40 MG/10 ML VIAL INJ IV SCH (11:08)
[2022-01-01] MEDS: cefTRIAXone 1GM/50ML D5W 50 ML IV SCH (11:15)
[2022-01-01 12:30] VITALS: BP 95/53
[2022-01-01] MEDS: MIDAZOLAM HCL 5 MG/ML-1ML VIAL ONE ×2 (13:02→13:05)
[2022-01-01] MEDS: fentaNYL CITRATE 100 MCG/2 ML VL ONE ×2 (13:02→13:05)
[2022-01-01] MEDS: POTASSIUM CHL 10MEQ/50ML 50 ML IV SCH ×4 (14:43→18:23)
[2022-01-01 17:00] VITALS: BP 137/82
[2022-01-01 22:00] VITALS: BP 112/62
[2022-01-01] MEDS: INSULIN LANTUS (GLARGINE) 1 /0.01ml (100units/ml) SC SCH (22:05)
[2022-01-01] MEDS: PANTOPRAZOLE 40 MG TAB PO SCH (22:11)
[2022-01-01] MEDS: GABAPENTIN 100 MG CAP PO SCH (22:11)
[2022-01-02] MEDS: SODIUM CHLORIDE 0.9% 1,000 ML IV SCH ×2 (03:53→20:15)
[2022-01-02 05:00] VITALS: BP 107/63
[2022-01-02] MEDS: hydrALAZINE HCL 20 MG/ML VL IV SCH ×3 (05:40→21:10)
[2022-01-02] MEDS: InsuLIN REG 1unit/0.01ml Soln (100units/ml) SC SCH ×4 (05:41→23:59)
[2022-01-02] MEDS: ACCU-CHEK COMFORT CURVE STRIP VI SCH ×4 (05:41→23:59)
[2022-01-02] MEDS ORDERED: ALBUTEROL SULF 2.5 MG/0.5ML(0.5%) NEB SOLN NEB PRN (06:00)
[2022-01-02] MEDS: SUCRALFATE 1 GM/10 ML ORAL SUSP PO SCH ×4 (06:38→21:11)
[2022-01-02 09:00] VITALS: BP 145/79
[2022-01-02] MEDS: MULTIPLE VITAMINS W/ MINERALS TAB PO SCH (10:43)
[2022-01-02] MEDS: PANTOPRAZOLE 40 MG TAB PO SCH ×2 (10:43→21:11)
[2022-01-02] MEDS: ENOXAPARIN SOD 30 MG/0.3 ML SYRINGE SC SCH (10:44)
[2022-01-02] MEDS: cefTRIAXone 1GM/50ML D5W 50 ML IV SCH (10:45)
[2022-01-02 13:00] VITALS: BP 109/65
[2022-01-02 15:24] LABS: Basophils # (auto) 0.1 10 ^3/uL (0-0.2); Basophils % (auto) 0.9 % (0.0-2.0); Eosinophils # (auto) 0 10 ^3/uL (0-0.8); Hematocrit 32.8 % (36.0-46.0); Hemoglobin 11.3 g/dL (12.2-16.2); Lymphocytes # (auto) 1.8 10 ^3/uL (0.4-5.4); Lymphocytes % (auto) 24.6 % (10.0-50.0); Mean Corpuscular Hemoglobin 31.3 pg (28.0-32.0); Mean Corpuscular Hgb Conc. 34.5 g/dL (32.0-36.0); Mean Corpuscular Volume 90.8 fL (80.0-100.0); Monocytes # (auto) 0.4 10 ^3/uL (0-1.3); Monocytes % (auto) 5.1 % (0.0-12.0); Neutrophils # (auto) 5.2 10 ^3/uL (1.6-8.6); Neutrophils % (auto) 69.4 % (37.0-80.0); Nucleated Red Blood Cells % 0.2 %; Red Blood Cells 3.61 10^6/uL (4.0-5.20); Red Cell Distribution Width 14.1 % (11.8-14.3); White Blood Cell 7.4 10^3/uL (4.4-10.8)
[2022-01-02 15:40] LABS: BUN/Creatinine Ratio 10.5; Calcium 8.3 mg/dL (8.5-10.1); Potassium 3.3 mmol/L (3.5-5.1)
[2022-01-02 16:57] VITALS: BP 114/59
[2022-01-02] MEDS ORDERED: POTASSIUM CHL 20 Meq TABLET PO ONE (17:00)
[2022-01-02] MEDS: INSULIN LANTUS (GLARGINE) 1 /0.01ml (100units/ml) SC SCH (21:04)
[2022-01-02] MEDS: GABAPENTIN 100 MG CAP PO SCH (21:12)
[2022-01-02 22:00] VITALS: BP 120/93
[2022-01-03 05:11] VITALS: BP 98/53
[2022-01-03 05:31] LABS: Basophils # (auto) 0.1 10 ^3/uL (0-0.2); Basophils % (auto) 0.9 % (0.0-2.0); Eosinophils # (auto) 0 10 ^3/uL (0-0.8); Hematocrit 33.3 % (36.0-46.0); Hemoglobin 11.6 g/dL (12.2-16.2); Lymphocytes % (auto) 29.1 % (10.0-50.0); Mean Corpuscular Hemoglobin 31.5 pg (28.0-32.0); Mean Corpuscular Hgb Conc. 34.7 g/dL (32.0-36.0); Mean Corpuscular Volume 90.7 fL (80.0-100.0); Monocytes # (auto) 0.4 10 ^3/uL (0-1.3); Neutrophils # (auto) 4.4 10 ^3/uL (1.6-8.6); Red Blood Cells 3.68 10^6/uL (4.0-5.20); Red Cell Distribution Width 14.1 % (11.8-14.3); White Blood Cell 6.8 10^3/uL (4.4-10.8)
[2022-01-03 05:40] LABS: Potassium 3.8 mmol/L (3.5-5.1)
[2022-01-03 05:51] LABS: BUN/Creatinine Ratio 17.6; Calcium 8.6 mg/dL (8.5-10.1)
[2022-01-03] MEDS: hydrALAZINE HCL 20 MG/ML VL IV SCH ×2 (06:00→14:00)
[2022-01-03] MEDS: InsuLIN REG 1unit/0.01ml Soln (100units/ml) SC SCH ×2 (06:00→12:00)
[2022-01-03] MEDS: ACCU-CHEK COMFORT CURVE STRIP VI SCH ×2 (06:07→12:00)
[2022-01-03] MEDS: SUCRALFATE 1 GM/10 ML ORAL SUSP PO SCH ×2 (07:00→11:30)
[2022-01-03 09:00] VITALS: BP 136/60
[2022-01-03] MEDS: cefTRIAXone 1GM/50ML D5W 50 ML IV SCH (09:41)
[2022-01-03] MEDS: PANTOPRAZOLE 40 MG TAB PO SCH (09:42)
[2022-01-03] MEDS: ENOXAPARIN SOD 30 MG/0.3 ML SYRINGE SC SCH (09:42)
[2022-01-03] MEDS: MULTIPLE VITAMINS W/ MINERALS TAB PO SCH (09:42)
[2022-01-03] MEDS ORDERED: SUCR1SUS10 PO (12:33)
[2022-01-03] MEDS ORDERED: PANT40T PO (12:33)
[2022-01-03] MEDS: SODIUM CHLORIDE 0.9% 1,000 ML IV SCH (12:55)
[2022-01-03 13:00] VITALS: BP 135/72
== END 2022-01-03 16:15 | disposition home or self-care (01) | DRG 243 ==
LOC: EDBD 12:55 → ER 12:55 → OVERFLOW 18:02 → CENTRAL 23:07
PROVIDERS: ADMIT Registered Nurse; ATTEND Internal Medicine
PROC: 0DB68ZX Excision of Stomach, Via Natural or Artificial Opening Endoscopic, Diagnostic (ICD-10-PCS; principal; 2022-01-01 12:58)
DX: K21.9 Gastro-esophageal reflux disease without esophagitis (principal); N39.0 Urinary tract infection, site not specified; E11.65 Type 2 diabetes mellitus with hyperglycemia; B96.89 Other specified bacterial agents as the cause of diseases classified elsewhere; I10 Essential (primary) hypertension; F17.210 Nicotine dependence, cigarettes, uncomplicated; K29.70 Gastritis, unspecified, without bleeding; Z20.822 Contact with and (suspected) exposure to COVID-19; J45.909 Unspecified asthma, uncomplicated; Z82.49 Family history of ischemic heart disease and other diseases of the circulatory system; Z83.3 Family history of diabetes mellitus; Z87.442 Personal history of urinary calculi; Z79.899 Other long term (current) drug therapy; Z90.49 Acquired absence of other specified parts of digestive tract; Z79.4 Long term (current) use of insulin
CPT/HCPCS: 36415; 43239; 71045; 74176; 80048; 80053; 81001; 82962; 83036; 83690; 83880; 85025; 85610; 87086; 87088; 87426; 93005; 96365; 96366; C9113; G0378; J0696; J1815; J2250

== ENCOUNTER 2022-01-06 16:24 | Emergency (ER) | payer MEDICARE, OTHER ==
[~2022-01-06] VITALS: Ht 160 cm; Wt 45.8 kg
[~2022-01-06 16:24] MED LIST changes: -CIPR-173 PO; -IBUP600T28 PO; -METR500T PO; -NITR-87 PO; -ONDA-144 PO; +PANT40T PO; -PERCOT PO; +SUCR1SUS10 PO
[2022-01-06 16:44] VITALS: BP 108/66
[2022-01-06] MEDS ORDERED: SODIUM CHLORIDE 0.9% 1,000 ML IV ONE (17:00)
[2022-01-06] MEDS ORDERED: NAP500T PO (17:41)
== END 2022-01-06 18:42 | disposition home or self-care (01) ==
LOC: ER 16:26
DX: G89.29 Other chronic pain (principal); M54.6 Pain in thoracic spine; I10 Essential (primary) hypertension; E11.9 Type 2 diabetes mellitus without complications; J45.909 Unspecified asthma, uncomplicated; F17.210 Nicotine dependence, cigarettes, uncomplicated; Z90.49 Acquired absence of other specified parts of digestive tract; Z90.89 Acquired absence of other organs; Z79.4 Long term (current) use of insulin; Z79.2 Long term (current) use of antibiotics; Z79.899 Other long term (current) drug therapy
CPT/HCPCS: 74176

== ENCOUNTER 2022-02-20 10:09 | Emergency (ER) | payer MEDICARE, OTHER ==
[~2022-02-20] VITALS: Ht 162.6 cm; Wt 54.4 kg
[~2022-02-20 10:09] MED LIST changes: +NAP500T PO
[2022-02-20 10:39] LABS: Basophils # (auto) 0.1 10 ^3/uL (0-0.2); Basophils % (auto) 1.6 % (0.0-2.0); Eosinophils # (auto) 0 10 ^3/uL (0-0.8); Hematocrit 38.9 % (36.0-46.0); Hemoglobin 13.8 g/dL (12.2-16.2); Lymphocytes # (auto) 1.8 10 ^3/uL (0.4-5.4); Lymphocytes % (auto) 23.2 % (10.0-50.0); Mean Corpuscular Hgb Conc. 35.3 g/dL (32.0-36.0); Mean Corpuscular Volume 90.4 fL (80.0-100.0); Monocytes # (auto) 0.3 10 ^3/uL (0-1.3); Monocytes % (auto) 4.2 % (0.0-12.0); Neutrophils # (auto) 5.5 10 ^3/uL (1.6-8.6); Nucleated Red Blood Cells % 0.2 %; Red Blood Cells 4.31 10^6/uL (4.0-5.20); Red Cell Distribution Width 13.6 % (11.8-14.3); White Blood Cell 7.7 10^3/uL (4.4-10.8)
[2022-02-20 10:56] LABS: Albumin 3.6 g/dL (3.4-5.0); Calcium 9.4 mg/dL (8.5-10.1); Magnesium 1.8 mg/dL (1.6-2.6); Potassium 3.4 mmol/L (3.5-5.1)
[2022-02-20 11:00] LABS: BUN/Creatinine Ratio 18.2; Bilirubin, Total 0.5 mg/dL (0.2-1.0); Total Protein 7.5 g/dL (6.4-8.2)
[2022-02-20] MEDS ORDERED: MORPHINE SULFATE 4 MG/ML SYR/VIAL IV ONE (11:15)
[2022-02-20] MEDS ORDERED: SODIUM CHLORIDE 0.9% 500 ML IVB ONE (11:15)
[2022-02-20] MEDS ORDERED: SODIUM CHLORIDE 0.9% 1,000 ML IV ONE (11:15)
[2022-02-20] MEDS ORDERED: METOCLOPRAMIDE HCL 5MG/ml INJ 2ml VIAL IV ONE (11:15)
[2022-02-20 13:29] LABS: Urine WBC None Seen /hpf (0 - 5)
[2022-02-20 13:41] LABS: Urine Bacteria MANY /hpf (None Seen); Urine Blood Negative /uL (Negative); Urine Mucus FEW (None Seen); Urine Specific Gravity 1.011 (1.001-1.035)
[2022-02-20 16:06] VITALS: BP 130/67
== END 2022-02-20 16:25 | disposition home or self-care (01) ==
LOC: ER 10:09
DX: E87.6 Hypokalemia (principal); E11.65 Type 2 diabetes mellitus with hyperglycemia; R82.71 Bacteriuria; J45.909 Unspecified asthma, uncomplicated; E11.9 Type 2 diabetes mellitus without complications; I10 Essential (primary) hypertension; F17.210 Nicotine dependence, cigarettes, uncomplicated; Z87.442 Personal history of urinary calculi; Z90.49 Acquired absence of other specified parts of digestive tract
CPT/HCPCS: 36415; 71046; 74176; 80053; 81001; 82150; 83690; 83735; 84443; 84484; 85025; 93005; 96361; 96374; 96375; 99285; J2270; J2765; J7030

== ENCOUNTER 2022-06-14 13:20 | Emergency (ER) | payer MEDICARE, OTHER ==
[~2022-06-14] VITALS: Ht 157.5 cm; Wt 48.4 kg
[2022-06-14 13:37] VITALS: BP 115/59
[2022-06-14] MEDS ORDERED: SODIUM CHLORIDE 0.9% 500 ML IV ONE ×2 (13:45→16:45)
[2022-06-14 14:13] LABS: Basophils # (auto) 0.1 10 ^3/uL (0-0.2); Basophils % (auto) 1.2 % (0.0-2.0); Eosinophils # (auto) 0 10 ^3/uL (0-0.8); Hematocrit 39.6 % (36.0-46.0); Hemoglobin 13.2 g/dL (12.2-16.2); Lymphocytes % (auto) 28.7 % (10.0-50.0); Mean Corpuscular Hemoglobin 31.1 pg (28.0-32.0); Mean Corpuscular Hgb Conc. 33.4 g/dL (32.0-36.0); Mean Corpuscular Volume 93.1 fL (80.0-100.0); Monocytes # (auto) 0.4 10 ^3/uL (0-1.3); Monocytes % (auto) 5.2 % (0.0-12.0); Neutrophils # (auto) 4.5 10 ^3/uL (1.6-8.6); Neutrophils % (auto) 64.9 % (37.0-80.0); Red Blood Cells 4.26 10^6/uL (4.0-5.20); Red Cell Distribution Width 13.2 % (11.8-14.3); White Blood Cell 6.9 10^3/uL (4.4-10.8)
[2022-06-14 14:32] LABS: Albumin 3.8 g/dL (3.4-5.0); BUN/Creatinine Ratio 28.7; Calcium 8.9 mg/dL (8.5-10.1); Potassium 4.1 mmol/L (3.5-5.1)
[2022-06-14 14:34] LABS: Bilirubin, Total 0.3 mg/dL (0.2-1.0)
[2022-06-14 15:52] LABS: Urine Bacteria MANY /hpf (None Seen); Urine Blood TRACE /uL (Negative); Urine Specific Gravity 1.019 (1.001-1.035); Urine WBC 67 /hpf (0 - 5); Urine WBC Clumps PRESENT /hpf (None Seen)
[2022-06-14] MEDS ORDERED: cefTRIAXone 1GM/50ML D5W 50 ML IV ONE (16:45)
[2022-06-14] MEDS ORDERED: InsuLIN REG 1unit/0.01ml Soln (100units/ml) IV ONE (16:45)
[2022-06-14] MEDS ORDERED: NITR-87 PO (17:10)
== END 2022-06-14 19:01 | disposition home or self-care (01) ==
LOC: ER 13:20
DX: N39.0 Urinary tract infection, site not specified (principal); R53.1 Weakness; I10 Essential (primary) hypertension; E11.9 Type 2 diabetes mellitus without complications; J45.909 Unspecified asthma, uncomplicated; F17.210 Nicotine dependence, cigarettes, uncomplicated; Z90.49 Acquired absence of other specified parts of digestive tract; Z90.89 Acquired absence of other organs; Z79.4 Long term (current) use of insulin; Z79.899 Other long term (current) drug therapy; Z20.822 Contact with and (suspected) exposure to COVID-19
CPT/HCPCS: 36415; 70450; 73502; 80053; 81001; 85025; 87426; 93005; 96365; 96375; 99285; J0696; J1815; J7040

== ENCOUNTER 2022-07-28 11:16 | Emergency (ER) | payer MEDICARE, OTHER ==
[~2022-07-28] VITALS: Ht 170.2 cm; Wt 50.6 kg
[~2022-07-28 11:16] MED LIST changes: +NITR-87 PO
[2022-07-28 13:38] LABS: Albumin 3.8 g/dL (3.4-5.0); BUN/Creatinine Ratio 20.5; Potassium 4.2 mmol/L (3.5-5.1)
[2022-07-28 13:43] LABS: Bilirubin, Total 0.5 mg/dL (0.2-1.0)
[2022-07-28 13:45] LABS: Urine Bacteria NONE SEEN /hpf (None Seen); Urine Blood Negative /uL (Negative); Urine Specific Gravity 1.013 (1.001-1.035); Urine WBC 369 /hpf (0 - 5)
[2022-07-28 14:42] LABS: Basophils # (auto) 0.1 10 ^3/uL (0-0.2); Basophils % (auto) 0.7 % (0.0-2.0); Eosinophils # (auto) 0 10 ^3/uL (0-0.8); Hematocrit 40.2 % (36.0-46.0); Hemoglobin 13.4 g/dL (12.2-16.2); Lymphocytes # (auto) 2.4 10 ^3/uL (0.4-5.4); Lymphocytes % (auto) 30.6 % (10.0-50.0); Mean Corpuscular Hemoglobin 30.8 pg (28.0-32.0); Mean Corpuscular Hgb Conc. 33.3 g/dL (32.0-36.0); Mean Corpuscular Volume 92.5 fL (80.0-100.0); Monocytes # (auto) 0.4 10 ^3/uL (0-1.3); Neutrophils # (auto) 5.1 10 ^3/uL (1.6-8.6); Neutrophils % (auto) 63.7 % (37.0-80.0); Nucleated Red Blood Cells % 0.1 %; Red Blood Cells 4.35 10^6/uL (4.0-5.20); Red Cell Distribution Width 13.3 % (11.8-14.3)
[2022-07-28 20:10] VITALS: BP 122/84
[2022-07-28] MEDS ORDERED: CEPH-322 PO (20:20)
== END 2022-07-28 19:41 | disposition left against medical advice (07) ==
LOC: ER 11:16
DX: R10.30 Lower abdominal pain, unspecified (principal); R11.2 Nausea with vomiting, unspecified; I10 Essential (primary) hypertension; E11.9 Type 2 diabetes mellitus without complications; J45.909 Unspecified asthma, uncomplicated; F17.210 Nicotine dependence, cigarettes, uncomplicated; Z90.49 Acquired absence of other specified parts of digestive tract; Z90.89 Acquired absence of other organs; Z79.4 Long term (current) use of insulin; Z79.899 Other long term (current) drug therapy
CPT/HCPCS: 36415; 74176; 80053; 81001; 85025; 93005

== ENCOUNTER 2022-09-07 10:25 | Emergency (ER) | payer MEDICARE, OTHER ==
[~2022-09-07] VITALS: Ht 144.8 cm; Wt 48.5 kg
[~2022-09-07 10:25] MED LIST changes: +CEPH-322 PO
[2022-09-07 10:56] LABS: Basophils # (auto) 0.1 10 ^3/uL (0-0.2); Basophils % (auto) 0.9 % (0.0-2.0); Eosinophils # (auto) 0 10 ^3/uL (0-0.8); Eosinophils % (auto) 0.1 % (0.0-7.0); Hematocrit 36.3 % (36.0-46.0); Hemoglobin 12.2 g/dL (12.2-16.2); Lymphocytes # (auto) 1.9 10 ^3/uL (0.4-5.4); Lymphocytes % (auto) 27.4 % (10.0-50.0); Mean Corpuscular Hemoglobin 31.4 pg (28.0-32.0); Mean Corpuscular Hgb Conc. 33.7 g/dL (32.0-36.0); Monocytes # (auto) 0.4 10 ^3/uL (0-1.3); Monocytes % (auto) 5.4 % (0.0-12.0); Neutrophils # (auto) 4.5 10 ^3/uL (1.6-8.6); Neutrophils % (auto) 66.2 % (37.0-80.0); Red Cell Distribution Width 13.4 % (11.8-14.3); White Blood Cell 6.8 10^3/uL (4.4-10.8)
[2022-09-07 11:20] LABS: Albumin 3.3 g/dL (3.4-5.0); Calcium 8.7 mg/dL (8.5-10.1); Potassium 3.9 mmol/L (3.5-5.1)
[2022-09-07 11:24] LABS: BUN/Creatinine Ratio 22.9; Bilirubin, Total 0.4 mg/dL (0.2-1.0); Total Protein 6.5 g/dL (6.4-8.2)
[2022-09-07 12:12] LABS: Urine Bacteria NONE SEEN /hpf (None Seen); Urine Blood Negative /uL (Negative); Urine Hyaline Cast FEW /lpf (0 - 2); Urine WBC 36 /hpf (0 - 5)
[2022-09-07] MEDS ORDERED: NITR-87 PO (13:06)
[2022-09-07 13:15] VITALS: BP 111/58
== END 2022-09-07 13:18 | disposition home or self-care (01) ==
LOC: ER 10:25
DX: N39.0 Urinary tract infection, site not specified (principal); I10 Essential (primary) hypertension; E11.9 Type 2 diabetes mellitus without complications; J45.909 Unspecified asthma, uncomplicated; F17.210 Nicotine dependence, cigarettes, uncomplicated; Z90.49 Acquired absence of other specified parts of digestive tract; Z90.89 Acquired absence of other organs; Z79.899 Other long term (current) drug therapy; Z79.4 Long term (current) use of insulin
CPT/HCPCS: 36415; 80053; 81001; 84484; 85025; 93005

== ENCOUNTER 2022-10-18 09:17 | Emergency (ER) | payer MEDICARE, OTHER ==
[~2022-10-18] VITALS: Ht 152.4 cm; Wt 51.2 kg
[2022-10-18 11:09] VITALS: BP 109/67
[2022-10-18] MEDS ORDERED: HYDROcodone-ACET 5/325MG TAB PO ONE (12:00)
== END 2022-10-18 15:19 | disposition home or self-care (01) ==
LOC: ER 09:17
DX: M25.552 Pain in left hip (principal); J45.909 Unspecified asthma, uncomplicated; E11.9 Type 2 diabetes mellitus without complications; I10 Essential (primary) hypertension; F17.210 Nicotine dependence, cigarettes, uncomplicated; M79.18 Myalgia, other site; Z90.49 Acquired absence of other specified parts of digestive tract; Z87.442 Personal history of urinary calculi
CPT/HCPCS: 72192; 73130; 73562

== ENCOUNTER 2022-10-29 09:25 | Inpatient (IN) | payer MEDICARE, OTHER ==
[~2022-10-29] VITALS: Ht 154.9 cm; Wt 54.1 kg
[2022-10-29 12:06] LABS: Basophils # (auto) 0.2 10 ^3/uL (0-0.2); Eosinophils # (auto) 0 10 ^3/uL (0-0.8); Hematocrit 38.6 % (36.0-46.0); Hemoglobin 12.9 g/dL (12.2-16.2); Lymphocytes # (auto) 2.4 10 ^3/uL (0.4-5.4); Lymphocytes % (auto) 29.7 % (10.0-50.0); Mean Corpuscular Hemoglobin 31.1 pg (28.0-32.0); Mean Corpuscular Hgb Conc. 33.6 g/dL (32.0-36.0); Mean Corpuscular Volume 92.5 fL (80.0-100.0); Monocytes # (auto) 0.5 10 ^3/uL (0-1.3); Monocytes % (auto) 5.9 % (0.0-12.0); Neutrophils % (auto) 62.4 % (37.0-80.0); Red Blood Cells 4.17 10^6/uL (4.0-5.20); Red Cell Distribution Width 13.5 % (11.8-14.3)
[2022-10-29 12:28] LABS: Albumin 3.4 g/dL (3.4-5.0); BUN/Creatinine Ratio 16.8; Calcium 9.4 mg/dL (8.5-10.1)
[2022-10-29 12:35] LABS: Bilirubin, Total 0.4 mg/dL (0.2-1.0); Total Protein 7.4 g/dL (6.4-8.2)
[2022-10-29] MEDS ORDERED: metroNIDAZOLE 500MG/100ML 100 ML IV ONE (12:45)
[2022-10-29] MEDS ORDERED: SODIUM CHLORIDE 0.9% 1,000 ML IV ONE (12:45)
[2022-10-29] MEDS ORDERED: cefTRIAXone 1GM/50ML D5W 50 ML IV ONE (12:45)
[2022-10-29] MEDS ORDERED: InsuLIN REG 1unit/0.01ml Soln (100units/ml) IV ONE ×2 (13:00→17:30)
[2022-10-29] MEDS ORDERED: HYDROcodone-ACET 5/325MG TAB PO PRN (15:30)
[2022-10-29] MEDS ORDERED: MORPHINE SULFATE INJ 2 MG/ml SYRG IV PRN (15:30)
[2022-10-29] MEDS ORDERED: NITROGLYCERIN 0.4 MG SL TAB SL PRN (15:30)
[2022-10-29] MEDS ORDERED: ONDANSETRON HCL 4 MG/2 ML VIAL IV PRN (15:30)
[2022-10-29] MEDS ORDERED: ACETAMINOPHEN 325 MG TAB PO PRN (15:30)
[2022-10-30 01:00] VITALS: BP 124/67
[2022-10-30 05:00] VITALS: BP 107/48
[2022-10-30 05:40] LABS: Basophils # (auto) 0.1 10 ^3/uL (0-0.2); Basophils % (auto) 0.8 % (0.0-2.0); Eosinophils # (auto) 0 10 ^3/uL (0-0.8); Hematocrit 33.4 % (36.0-46.0); Hemoglobin 11.7 g/dL (12.2-16.2); Lymphocytes # (auto) 2.4 10 ^3/uL (0.4-5.4); Lymphocytes % (auto) 29.6 % (10.0-50.0); Mean Corpuscular Hemoglobin 32.1 pg (28.0-32.0); Mean Corpuscular Hgb Conc. 34.9 g/dL (32.0-36.0); Mean Corpuscular Volume 91.7 fL (80.0-100.0); Monocytes # (auto) 0.4 10 ^3/uL (0-1.3); Monocytes % (auto) 5.2 % (0.0-12.0); Neutrophils # (auto) 5.1 10 ^3/uL (1.6-8.6); Neutrophils % (auto) 64.4 % (37.0-80.0); Nucleated Red Blood Cells % 0.1 %; Red Blood Cells 3.64 10^6/uL (4.0-5.20); Red Cell Distribution Width 13.4 % (11.8-14.3); White Blood Cell 7.9 10^3/uL (4.4-10.8)
[2022-10-30 05:50] LABS: Potassium 3.5 mmol/L (3.5-5.1)
[2022-10-30 05:58] LABS: Albumin 3.1 g/dL (3.4-5.0); BUN/Creatinine Ratio 20.5; Bilirubin, Total 1.4 mg/dL (0.2-1.0); Calcium 8.5 mg/dL (8.5-10.1)
[2022-10-30] MEDS ORDERED: DEXTROSE (50%) 50ML SYRG IV PRN (08:00)
[2022-10-30] MEDS: SODIUM CHLORIDE 0.9% 1,000 ML IV SCH ×2 (08:00→21:02)
[2022-10-30 09:00] VITALS: BP 113/60
[2022-10-30] MEDS: MULTIPLE VITAMINS W/ MINERALS TAB PO SCH (09:20)
[2022-10-30] MEDS: ENOXAPARIN SOD 30 MG/0.3 ML SYRINGE SC SCH (09:23)
[2022-10-30] MEDS: PANTOPRAZOLE 40 MG TAB PO SCH (09:23)
[2022-10-30] MEDS ORDERED: levoFLOXacin 500MG 100 ML IV ONE (10:00)
[2022-10-30] MEDS: ACCU-CHEK COMFORT CURVE STRIP VI SCH ×3 (12:31→23:01)
[2022-10-30] MEDS: InsuLIN REG 1unit/0.01ml Soln (100units/ml) SC SCH ×3 (12:53→23:09)
[2022-10-30 13:01] VITALS: BP 99/50
[2022-10-30] MEDS: metroNIDAZOLE 500 MG TAB PO SCH ×2 (13:56→23:02)
[2022-10-30 17:00] VITALS: BP 100/56
[2022-10-30 22:00] VITALS: BP 97/52
[2022-10-30] MEDS: GABAPENTIN 100 MG CAP PO SCH (23:01)
[2022-10-31] MEDS: INSULIN LANTUS (GLARGINE) 1 /0.01ml (100units/ml) SC SCH ×2 (00:32→23:03)
[2022-10-31] MEDS: SODIUM CHLORIDE 0.9% 1,000 ML IV SCH ×2 (06:26→12:11)
[2022-10-31] MEDS: metroNIDAZOLE 500 MG TAB PO SCH ×3 (06:26→22:42)
[2022-10-31] MEDS: ACCU-CHEK COMFORT CURVE STRIP VI SCH ×4 (06:26→22:41)
[2022-10-31] MEDS: InsuLIN REG 1unit/0.01ml Soln (100units/ml) SC SCH ×4 (06:27→23:03)
[2022-10-31 08:14] VITALS: BP 118/58
[2022-10-31] MEDS: ENOXAPARIN SOD 30 MG/0.3 ML SYRINGE SC SCH (09:31)
[2022-10-31] MEDS: levoFLOXacin 250MG 50 ML IV SCH (09:31)
[2022-10-31] MEDS: MULTIPLE VITAMINS W/ MINERALS TAB PO SCH (09:31)
[2022-10-31] MEDS: PANTOPRAZOLE 40 MG TAB PO SCH (09:31)
[2022-10-31] MEDS ORDERED: POTASSIUM EFFERVESENT TAB 25 MEQ PO ONE (10:30)
[2022-10-31 13:08] VITALS: BP 101/56
[2022-10-31 16:53] VITALS: BP 113/75
[2022-10-31 22:00] VITALS: BP 110/61
[2022-10-31] MEDS: GABAPENTIN 100 MG CAP PO SCH (22:42)
[2022-10-31] MEDS: FLUTICASONE PROP NASAL SPR 0.05 % (50MCG) 16GM EACHNOSTRI SCH (23:04)
[2022-11-01] MEDS: SODIUM CHLORIDE 0.9% 1,000 ML IV SCH ×2 (01:44→10:00)
[2022-11-01 05:00] VITALS: BP 101/55
[2022-11-01] MEDS: InsuLIN REG 1unit/0.01ml Soln (100units/ml) SC SCH ×2 (06:46→12:27)
[2022-11-01] MEDS: ACCU-CHEK COMFORT CURVE STRIP VI SCH ×2 (06:46→11:58)
[2022-11-01] MEDS: metroNIDAZOLE 500 MG TAB PO SCH ×2 (06:47→14:19)
[2022-11-01] MEDS ORDERED: LEVO500T31 PO (07:54)
[2022-11-01] MEDS ORDERED: METR500T PO (07:54)
[2022-11-01 08:00] VITALS: BP 126/71
[2022-11-01 09:00] VITALS: BP 126/71
[2022-11-01] MEDS: levoFLOXacin 250MG 50 ML IV SCH (10:10)
[2022-11-01] MEDS: PANTOPRAZOLE 40 MG TAB PO SCH (10:10)
[2022-11-01] MEDS: ENOXAPARIN SOD 30 MG/0.3 ML SYRINGE SC SCH (10:11)
[2022-11-01] MEDS: MULTIPLE VITAMINS W/ MINERALS TAB PO SCH (10:11)
[2022-11-01] MEDS: FLUTICASONE PROP NASAL SPR 0.05 % (50MCG) 16GM EACHNOSTRI SCH (10:15)
[2022-11-01 13:00] VITALS: BP 116/53
== END 2022-11-01 14:30 | disposition home or self-care (01) | DRG 244 ==
LOC: ER 09:38 → TELE 15:28 → TELE-WESTW 10-30 00:38
PROVIDERS: ADMIT Nurse Practitioner; ATTEND Nurse Practitioner
DX: K57.32 Diverticulitis of large intestine without perforation or abscess without bleeding (principal); N17.0 Acute kidney failure with tubular necrosis; E11.65 Type 2 diabetes mellitus with hyperglycemia; F17.210 Nicotine dependence, cigarettes, uncomplicated; I10 Essential (primary) hypertension; J45.909 Unspecified asthma, uncomplicated; N20.0 Calculus of kidney; Z20.822 Contact with and (suspected) exposure to COVID-19; Z82.49 Family history of ischemic heart disease and other diseases of the circulatory system; Z83.3 Family history of diabetes mellitus; Z87.442 Personal history of urinary calculi; Z71.6 Tobacco abuse counseling
CPT/HCPCS: 36415; 71045; 74176; 80053; 82962; 83605; 83690; 85025; 87426; 96361; 96365; 96367; 96375; G0378; J0696; J1815; J1956; J3490

== ENCOUNTER 2022-11-25 13:57 | Emergency (ER) | payer MEDICARE, OTHER ==
[~2022-11-25] VITALS: Ht 154.9 cm; Wt 76.0 kg
[~2022-11-25 13:57] MED LIST changes: -CEPH-322 PO; +LEVO500T31 PO; +METR500T PO; -NITR-87 PO
[2022-11-25] MEDS ORDERED: SODIUM CHLORIDE 0.9% 250 ML IV ONE (14:45)
[2022-11-25 15:15] LABS: Basophils # (auto) 0.1 10 ^3/uL (0-0.2); Eosinophils # (auto) 0 10 ^3/uL (0-0.8); Hematocrit 39.7 % (36.0-46.0); Hemoglobin 13.4 g/dL (12.2-16.2); Lymphocytes # (auto) 2.3 10 ^3/uL (0.4-5.4); Lymphocytes % (auto) 37.4 % (10.0-50.0); Mean Corpuscular Hemoglobin 31.8 pg (28.0-32.0); Mean Corpuscular Hgb Conc. 33.8 g/dL (32.0-36.0); Mean Corpuscular Volume 93.9 fL (80.0-100.0); Monocytes # (auto) 0.3 10 ^3/uL (0-1.3); Monocytes % (auto) 5.4 % (0.0-12.0); Neutrophils # (auto) 3.4 10 ^3/uL (1.6-8.6); Neutrophils % (auto) 56.2 % (37.0-80.0); Nucleated Red Blood Cells % 0.2 %; Red Blood Cells 4.23 10^6/uL (4.0-5.20); Red Cell Distribution Width 13.8 % (11.8-14.3)
[2022-11-25 15:28] LABS: INR 0.93 (0.9-1.15); Partial Thromboplastin Time 23.9 sec (24.6-33.4)
[2022-11-25 15:37] LABS: Albumin 3.8 g/dL (3.4-5.0); Calcium 9.2 mg/dL (8.5-10.1); Magnesium 2.1 mg/dL (1.6-2.6); Potassium 3.6 mmol/L (3.5-5.1)
[2022-11-25 15:40] LABS: BUN/Creatinine Ratio 17.8; Bilirubin, Total 0.6 mg/dL (0.2-1.0); Total Protein 6.8 g/dL (6.4-8.2)
[2022-11-25 18:43] LABS: Urine Bacteria FEW /hpf (None Seen); Urine Blood TRACE /uL (Negative); Urine Budding Yeast MODERATE /hpf (None Seen); Urine Hyaline Cast FEW /lpf (0 - 2); Urine Mucus FEW (None Seen); Urine WBC 43 /hpf (0 - 5); Urine WBC Clumps PRESENT /hpf (None Seen)
[2022-11-25] MEDS ORDERED: ACET-1158 PO (19:33)
[2022-11-25] MEDS ORDERED: BACDST PO (19:33)
[2022-11-25 21:40] VITALS: BP 117/64
== END 2022-11-25 21:44 | disposition home or self-care (01) ==
LOC: ER 13:57
DX: N39.0 Urinary tract infection, site not specified (principal); I10 Essential (primary) hypertension; E11.9 Type 2 diabetes mellitus without complications; J45.909 Unspecified asthma, uncomplicated; F17.210 Nicotine dependence, cigarettes, uncomplicated; Z90.49 Acquired absence of other specified parts of digestive tract; Z90.89 Acquired absence of other organs; Z79.4 Long term (current) use of insulin; Z79.899 Other long term (current) drug therapy
CPT/HCPCS: 36415; 71046; 74176; 80053; 81001; 82962; 83735; 83880; 84484; 85025; 85610; 85730; 93005

== ENCOUNTER 2023-01-26 07:57 | Emergency (ER) | payer MEDICARE, OTHER ==
[~2023-01-26] VITALS: Ht 160 cm; Wt 49.9 kg
[~2023-01-26 07:57] MED LIST changes: +ACET-1158 PO; +BACDST PO
[2023-01-26 08:20] VITALS: BP 154/86
[2023-01-26] MEDS ORDERED: HYDROcodone-ACET 10/325MG TAB PO ONE (09:00)
[2023-01-26] MEDS ORDERED: HYDR-4798 PO (10:07)
== END 2023-01-26 10:20 | disposition home or self-care (01) ==
LOC: ER 07:57
DX: S42.211A Unspecified displaced fracture of surgical neck of right humerus, initial encounter for closed fracture (principal); I10 Essential (primary) hypertension; E11.9 Type 2 diabetes mellitus without complications; J45.909 Unspecified asthma, uncomplicated; F17.210 Nicotine dependence, cigarettes, uncomplicated; Z90.49 Acquired absence of other specified parts of digestive tract; Z90.89 Acquired absence of other organs; Z79.4 Long term (current) use of insulin; Z79.2 Long term (current) use of antibiotics; Z79.899 Other long term (current) drug therapy; W18.39XA Other fall on same level, initial encounter; Y93.89 Activity, other specified; Y92.89 Other specified places as the place of occurrence of the external cause; Y99.8 Other external cause status
CPT/HCPCS: 73030

== ENCOUNTER 2023-02-16 10:01 | Emergency (ER) | payer MEDICARE, OTHER ==
[~2023-02-16] VITALS: Ht 147.3 cm; Wt 50.4 kg
[~2023-02-16 10:01] MED LIST changes: +HYDR-4798 PO
[2023-02-16 10:58] VITALS: BP 94/47
[2023-02-16] MEDS ORDERED: HYDROcodone-ACET 5/325MG TAB PO ONE ×2 (11:15→12:00)
[2023-02-16] MEDS ORDERED: TRAM-297 PO (12:07)
== END 2023-02-16 12:23 | disposition home or self-care (01) ==
LOC: ER 10:01
DX: S42.211A Unspecified displaced fracture of surgical neck of right humerus, initial encounter for closed fracture (principal); E11.9 Type 2 diabetes mellitus without complications; I10 Essential (primary) hypertension; F17.210 Nicotine dependence, cigarettes, uncomplicated; Z87.442 Personal history of urinary calculi; Z90.49 Acquired absence of other specified parts of digestive tract; W18.39XA Other fall on same level, initial encounter; Y93.89 Activity, other specified; Y92.89 Other specified places as the place of occurrence of the external cause; Y99.8 Other external cause status; J45.909 Unspecified asthma, uncomplicated
CPT/HCPCS: 82962

== ENCOUNTER 2023-03-25 12:20 | Inpatient (IN) | payer MEDICARE, OTHER ==
[~2023-03-25] VITALS: Ht 157.5 cm; Wt 55.0 kg
[~2023-03-25 12:20] MED LIST changes: +TRAM-297 PO
[2023-03-25] MEDS ORDERED: SODIUM CHLORIDE 0.9% 1,000 ML IV ONE ×3 (13:00→15:00)
[2023-03-25 13:43] LABS: Basophils # (auto) 0.1 10 ^3/uL (0-0.2); Eosinophils # (auto) 0 10 ^3/uL (0-0.8); Hematocrit 36.4 % (36.0-46.0); Hemoglobin 12.5 g/dL (12.2-16.2); Lymphocytes # (auto) 1.8 10 ^3/uL (0.4-5.4); Lymphocytes % (auto) 21.8 % (10.0-50.0); Mean Corpuscular Hemoglobin 32.3 pg (28.0-32.0); Mean Corpuscular Hgb Conc. 34.3 g/dL (32.0-36.0); Mean Corpuscular Volume 94.2 fL (80.0-100.0); Monocytes # (auto) 0.3 10 ^3/uL (0-1.3); Monocytes % (auto) 4.2 % (0.0-12.0); Red Blood Cells 3.87 10^6/uL (4.0-5.20); Red Cell Distribution Width 12.9 % (11.8-14.3); White Blood Cell 8.2 10^3/uL (4.4-10.8)
[2023-03-25 14:07] LABS: Albumin 3.5 g/dL (3.4-5.0); Calcium 7.9 mg/dL (8.5-10.1); Potassium 3.6 mmol/L (3.5-5.1)
[2023-03-25 14:11] LABS: BUN/Creatinine Ratio 26.3 (10.0-20.0); Bilirubin, Total 0.4 mg/dL (0.2-1.0); Lactic Acid w/Reflex 2.6 mmol/L (0.4-2.0); Total Protein 6.5 g/dL (6.4-8.2)
[2023-03-25] MEDS ORDERED: SOD CHL 0.45% 1,000 ML IV SCH (15:00)
[2023-03-25] MEDS ORDERED: ALBUTEROL SULF 2.5 MG/0.5ML(0.5%) NEB SOLN NEB PRN (15:00)
[2023-03-25] MEDS ORDERED: NITROGLYCERIN 0.4 MG SL TAB SL PRN (15:00)
[2023-03-25] MEDS ORDERED: DEXTROSE (50%) 50ML SYRG IV PRN (15:00)
[2023-03-25] MEDS ORDERED: ACETAMINOPHEN 325 MG TAB PO PRN (15:00)
[2023-03-25] MEDS ORDERED: ONDANSETRON HCL 4 MG/2 ML VIAL IV PRN (15:00)
[2023-03-25] MEDS ORDERED: PANTOPRAZOLE 40 MG/10 ML VIAL INJ IV ONE (15:00)
[2023-03-25] MEDS ORDERED: MORPHINE SULFATE INJ 2 MG/ml SYRG IV PRN (15:00)
[2023-03-25] MEDS ORDERED: cefTRIAXone 1GM/50ML D5W 50 ML IV ONE (15:15)
[2023-03-25 16:04] LABS: Urine Bacteria MANY /hpf (None Seen); Urine Blood 3+ /uL (Negative); Urine Specific Gravity 1.015 (1.001-1.035); Urine WBC 797 /hpf (0 - 5); Urine WBC Clumps PRESENT /hpf (None Seen)
[2023-03-25 19:14] VITALS: BP 70/40
[2023-03-25] MEDS: ACCU-CHEK COMFORT CURVE STRIP VI SCH ×2 (20:38→21:37)
[2023-03-25] MEDS: InsuLIN REG 1unit/0.01ml Soln (100units/ml) SC SCH ×2 (20:40→21:36)
[2023-03-25] MEDS: GABAPENTIN 100 MG CAP PO SCH (21:36)
[2023-03-25] MEDS: PROPRANOLOL HCL 20 MG TAB PO SCH (22:00)
[2023-03-26 04:10] VITALS: BP 105/64
[2023-03-26 05:00] VITALS: BP 105/48
[2023-03-26 06:46] LABS: Basophils # (auto) 0.1 10 ^3/uL (0-0.2); Basophils % (auto) 0.9 % (0.0-2.0); Eosinophils # (auto) 0 10 ^3/uL (0-0.8); Hematocrit 30.4 % (36.0-46.0); Hemoglobin 10.4 g/dL (12.2-16.2); Lymphocytes # (auto) 2.1 10 ^3/uL (0.4-5.4); Lymphocytes % (auto) 29.7 % (10.0-50.0); Mean Corpuscular Hemoglobin 32.8 pg (28.0-32.0); Mean Corpuscular Hgb Conc. 34.3 g/dL (32.0-36.0); Mean Corpuscular Volume 95.8 fL (80.0-100.0); Monocytes # (auto) 0.5 10 ^3/uL (0-1.3); Monocytes % (auto) 7.4 % (0.0-12.0); Neutrophils # (auto) 4.4 10 ^3/uL (1.6-8.6); Nucleated Red Blood Cells % 0.1 %; Red Blood Cells 3.17 10^6/uL (4.0-5.20); Red Cell Distribution Width 13.1 % (11.8-14.3); White Blood Cell 7.1 10^3/uL (4.4-10.8)
[2023-03-26 06:55] LABS: Albumin 2.5 g/dL (3.4-5.0); BUN/Creatinine Ratio 26.4 (10.0-20.0); Calcium 6.7 mg/dL (8.5-10.1); Potassium 3.9 mmol/L (3.5-5.1)
[2023-03-26 06:57] LABS: Bilirubin, Total 0.2 mg/dL (0.2-1.0); Total Protein 5.1 g/dL (6.4-8.2)
[2023-03-26] MEDS: ACCU-CHEK COMFORT CURVE STRIP VI SCH ×4 (06:57→22:12)
[2023-03-26] MEDS: InsuLIN REG 1unit/0.01ml Soln (100units/ml) SC SCH ×4 (06:57→21:51)
[2023-03-26 09:00] VITALS: BP 105/48
[2023-03-26] MEDS: cefTRIAXone 1GM/50ML D5W 50 ML IV SCH (09:21)
[2023-03-26] MEDS ORDERED: ENOXAPARIN SOD 40 MG/0.4 ML SYRINGE SC SCH (10:00)
[2023-03-26] MEDS: PANTOPRAZOLE 40 MG/10 ML VIAL INJ IV SCH (10:04)
[2023-03-26] MEDS: PROPRANOLOL HCL 20 MG TAB PO SCH ×2 (10:05→22:00)
[2023-03-26] MEDS: MULTIPLE VITAMINS W/ MINERALS TAB PO SCH (10:05)
[2023-03-26 13:00] VITALS: BP 105/48
[2023-03-26] MEDS: metroNIDAZOLE 500MG/100ML 100 ML IV SCH ×2 (13:40→22:12)
[2023-03-26] MEDS: FLORASTOR (S. BOULARDII) 250 MG CAP PO SCH (21:58)
[2023-03-26 22:00] VITALS: BP 103/55
[2023-03-26] MEDS: GABAPENTIN 100 MG CAP PO SCH (22:00)
[2023-03-27 05:00] VITALS: BP 97/46
[2023-03-27] MEDS: InsuLIN REG 1unit/0.01ml Soln (100units/ml) SC SCH ×4 (05:42→22:06)
[2023-03-27] MEDS: ACCU-CHEK COMFORT CURVE STRIP VI SCH ×4 (06:00→22:22)
[2023-03-27] MEDS: metroNIDAZOLE 500MG/100ML 100 ML IV SCH ×3 (06:00→22:20)
[2023-03-27 06:03] LABS: Basophils # (auto) 0.1 10 ^3/uL (0-0.2); Eosinophils # (auto) 0 10 ^3/uL (0-0.8); Hematocrit 29.5 % (36.0-46.0); Hemoglobin 10.3 g/dL (12.2-16.2); Lymphocytes # (auto) 2.5 10 ^3/uL (0.4-5.4); Lymphocytes % (auto) 42.2 % (10.0-50.0); Mean Corpuscular Hemoglobin 32.9 pg (28.0-32.0); Mean Corpuscular Volume 94.1 fL (80.0-100.0); Monocytes # (auto) 0.4 10 ^3/uL (0-1.3); Monocytes % (auto) 6.2 % (0.0-12.0); Neutrophils % (auto) 50.6 % (37.0-80.0); Nucleated Red Blood Cells % 0.1 %; Red Blood Cells 3.14 10^6/uL (4.0-5.20); Red Cell Distribution Width 12.8 % (11.8-14.3)
[2023-03-27 06:20] LABS: Potassium 3.4 mmol/L (3.5-5.1)
[2023-03-27 06:41] LABS: BUN/Creatinine Ratio 11.7 (10.0-20.0); Calcium 7.4 mg/dL (8.5-10.1); Magnesium 1.8 mg/dL (1.6-2.6)
[2023-03-27 06:54] LABS: Albumin 2.5 g/dL (3.4-5.0); Bilirubin, Total 0.3 mg/dL (0.2-1.0); Total Protein 5.4 g/dL (6.4-8.2)
[2023-03-27 09:00] VITALS: BP 104/49
[2023-03-27] MEDS: cefTRIAXone 1GM/50ML D5W 50 ML IV SCH (09:54)
[2023-03-27] MEDS: PROPRANOLOL HCL 20 MG TAB PO SCH ×2 (09:55→22:00)
[2023-03-27] MEDS: FLORASTOR (S. BOULARDII) 250 MG CAP PO SCH ×2 (09:55→22:00)
[2023-03-27] MEDS: PANTOPRAZOLE 40 MG/10 ML VIAL INJ IV SCH (09:55)
[2023-03-27] MEDS: MULTIPLE VITAMINS W/ MINERALS TAB PO SCH (09:55)
[2023-03-27 12:34] VITALS: BP 122/61
[2023-03-27 16:31] VITALS: BP 100/52
[2023-03-27 22:00] VITALS: BP 100/53
[2023-03-27] MEDS: GABAPENTIN 100 MG CAP PO SCH (22:21)
[2023-03-28] MEDS: InsuLIN REG 1unit/0.01ml Soln (100units/ml) SC SCH ×4 (06:03→23:15)
[2023-03-28] MEDS: metroNIDAZOLE 500MG/100ML 100 ML IV SCH ×3 (06:10→22:06)
[2023-03-28] MEDS: ACCU-CHEK COMFORT CURVE STRIP VI SCH ×4 (06:10→22:11)
[2023-03-28 08:00] VITALS: BP 92/52
[2023-03-28] MEDS: cefTRIAXone 1GM/50ML D5W 50 ML IV SCH (10:33)
[2023-03-28] MEDS: PANTOPRAZOLE 40 MG/10 ML VIAL INJ IV SCH (10:34)
[2023-03-28] MEDS: PROPRANOLOL HCL 20 MG TAB PO SCH ×2 (10:36→22:00)
[2023-03-28] MEDS: MULTIPLE VITAMINS W/ MINERALS TAB PO SCH (10:37)
[2023-03-28] MEDS: FLORASTOR (S. BOULARDII) 250 MG CAP PO SCH ×2 (10:37→22:03)
[2023-03-28] MEDS ORDERED: DIPHENOXYLATE W/ATROPINE 2.5 MG TAB PO PRN (11:30)
[2023-03-28 12:00] VITALS: BP 128/68
[2023-03-28 13:06] LABS: Potassium 3.1 mmol/L (3.5-5.1)
[2023-03-28 13:18] LABS: Albumin 3.2 g/dL (3.4-5.0); BUN/Creatinine Ratio 5.5 (10.0-20.0); Bilirubin, Total 0.3 mg/dL (0.2-1.0); Calcium 8.2 mg/dL (8.5-10.1); Phosphorus 1.2 mg/dL (2.5-4.90); Total Protein 5.9 g/dL (6.4-8.2)
[2023-03-28 16:00] VITALS: BP 106/61
[2023-03-28] MEDS: GABAPENTIN 100 MG CAP PO SCH (22:03)
[2023-03-28 22:55] VITALS: BP 99/50
[2023-03-28 22:56] VITALS: BP 105/60
[2023-03-29 04:26] VITALS: BP 130/70
[2023-03-29] MEDS: metroNIDAZOLE 500MG/100ML 100 ML IV SCH ×3 (06:02→21:39)
[2023-03-29] MEDS: ACCU-CHEK COMFORT CURVE STRIP VI SCH ×4 (06:03→21:40)
[2023-03-29] MEDS: InsuLIN REG 1unit/0.01ml Soln (100units/ml) SC SCH ×4 (06:07→21:46)
[2023-03-29 09:00] VITALS: BP 142/49
[2023-03-29] MEDS: PANTOPRAZOLE 40 MG/10 ML VIAL INJ IV SCH (09:09)
[2023-03-29] MEDS: cefTRIAXone 1GM/50ML D5W 50 ML IV SCH (09:09)
[2023-03-29] MEDS: MULTIPLE VITAMINS W/ MINERALS TAB PO SCH (09:10)
[2023-03-29] MEDS: FLORASTOR (S. BOULARDII) 250 MG CAP PO SCH ×2 (09:10→21:36)
[2023-03-29] MEDS: PROPRANOLOL HCL 20 MG TAB PO SCH ×2 (09:10→21:40)
[2023-03-29 13:00] VITALS: BP 103/54
[2023-03-29 17:00] VITALS: BP 135/84
[2023-03-29] MEDS ORDERED: GOLYTELY 4L KIT PO ONE (17:00)
[2023-03-29 18:12] LABS: INR 1.01 (0.9-1.15); Partial Thromboplastin Time 27.3 sec (24.6-33.4)
[2023-03-29 20:00] VITALS: BP 104/59
[2023-03-29] MEDS: GABAPENTIN 100 MG CAP PO SCH (21:37)
[2023-03-29 22:03] VITALS: BP 110/47
[2023-03-30 04:43] VITALS: BP 96/44
[2023-03-30] MEDS: metroNIDAZOLE 500MG/100ML 100 ML IV SCH ×2 (05:49→16:13)
[2023-03-30] MEDS ORDERED: POLYETHYLENE GLYCOL 17 GM PWDR PO ONE (06:00)
[2023-03-30] MEDS ORDERED: GOLYTELY 4L KIT PO ONE (06:00)
[2023-03-30] MEDS: ACCU-CHEK COMFORT CURVE STRIP VI SCH ×4 (06:17→22:15)
[2023-03-30] MEDS: InsuLIN REG 1unit/0.01ml Soln (100units/ml) SC SCH ×4 (06:18→22:22)
[2023-03-30 09:00] VITALS: BP 112/50
[2023-03-30] MEDS: FLORASTOR (S. BOULARDII) 250 MG CAP PO SCH ×2 (09:36→22:15)
[2023-03-30] MEDS: cefTRIAXone 1GM/50ML D5W 50 ML IV SCH (09:36)
[2023-03-30] MEDS: PROPRANOLOL HCL 20 MG TAB PO SCH ×2 (09:36→22:18)
[2023-03-30] MEDS: MULTIPLE VITAMINS W/ MINERALS TAB PO SCH (09:37)
[2023-03-30] MEDS: PANTOPRAZOLE 40 MG/10 ML VIAL INJ IV SCH (09:37)
[2023-03-30] MEDS ORDERED: NALOXONE HCL 0.4 MG/ML VIAL ONE (11:34)
[2023-03-30] MEDS ORDERED: SODIUM CHLORIDE LOCK 10 ML ONE (11:35)
[2023-03-30] MEDS ORDERED: FLUMAZENIL 0.1 MG/ML INJ 10ML MDV IV ONE (11:35)
[2023-03-30 13:00] VITALS: BP 123/55
[2023-03-30] MEDS: diphenhdrAMINE HCL 50 MG/1 ML VL ONE ×2 (14:55→14:57)
[2023-03-30] MEDS: MIDAZOLAM HCL 5 MG/ML-1ML VIAL ONE ×2 (14:55→15:02)
[2023-03-30] MEDS: fentaNYL CITRATE 100 MCG/2 ML VL ONE ×2 (14:55→15:02)
[2023-03-30 17:01] VITALS: BP 103/50
[2023-03-30 20:00] VITALS: BP 104/59
[2023-03-30 22:00] VITALS: BP 104/59
[2023-03-30] MEDS: GABAPENTIN 100 MG CAP PO SCH (22:14)
[2023-03-31] MEDS: metroNIDAZOLE 500MG/100ML 100 ML IV SCH ×3 (00:19→16:00)
[2023-03-31 05:00] VITALS: BP 114/63
[2023-03-31] MEDS: ACCU-CHEK COMFORT CURVE STRIP VI SCH ×2 (06:09→11:19)
[2023-03-31] MEDS: InsuLIN REG 1unit/0.01ml Soln (100units/ml) SC SCH ×2 (06:12→11:24)
[2023-03-31 08:15] VITALS: BP 107/59
[2023-03-31 09:09] VITALS: BP 107/59
[2023-03-31] MEDS: cefTRIAXone 1GM/50ML D5W 50 ML IV SCH (09:39)
[2023-03-31] MEDS: FLORASTOR (S. BOULARDII) 250 MG CAP PO SCH (09:39)
[2023-03-31] MEDS: PANTOPRAZOLE 40 MG/10 ML VIAL INJ IV SCH (09:39)
[2023-03-31] MEDS: PROPRANOLOL HCL 20 MG TAB PO SCH (09:40)
[2023-03-31] MEDS: MULTIPLE VITAMINS W/ MINERALS TAB PO SCH (09:40)
[2023-03-31 12:00] VITALS: BP 115/72
[2023-03-31 16:00] VITALS: BP 110/85
[2023-03-31 16:29] VITALS: BP 107/59
== END 2023-03-31 17:58 | disposition home or self-care (01) | DRG 245 ==
LOC: ER 12:20 → TELE 14:52 → TELE-CENTR 03-26 03:01 → CENTRAL 03-26 12:18
PROVIDERS: ADMIT Nurse Practitioner Family; ATTEND Nurse Practitioner
PROC: 0DBN8ZX Excision of Sigmoid Colon, Via Natural or Artificial Opening Endoscopic, Diagnostic (ICD-10-PCS; principal; 2023-03-30 14:48)
DX: K51.40 Inflammatory polyps of colon without complications (principal); E43 Unspecified severe protein-calorie malnutrition; N17.9 Acute kidney failure, unspecified; E11.22 Type 2 diabetes mellitus with diabetic chronic kidney disease; E86.0 Dehydration; K57.30 Diverticulosis of large intestine without perforation or abscess without bleeding; R19.7 Diarrhea, unspecified; E11.65 Type 2 diabetes mellitus with hyperglycemia; N18.32 Chronic kidney disease, stage 3b; N30.00 Acute cystitis without hematuria; F17.210 Nicotine dependence, cigarettes, uncomplicated; I12.9 Hypertensive chronic kidney disease with stage 1 through stage 4 chronic kidney disease, or unspecified chronic kidney disease; J45.909 Unspecified asthma, uncomplicated; R74.01 Elevation of levels of liver transaminase levels; R79.89 Other specified abnormal findings of blood chemistry; K64.8 Other hemorrhoids; Z68.22 Body mass index [BMI] 22.0-22.9, adult; Z87.442 Personal history of urinary calculi
CPT/HCPCS: 36415; 45380; 71045; 74176; 80053; 81001; 82962; 83036; 83605; 83735; 83930; 84100; 84443; 85025; 85048; 85610; 85730; 86256; 86671; 86850; 86900; 86901; 87040; 87045; 87086; 87427; 93005; 97116; 97163; 97530; C9113; G0378; J0696; J1815; J2250; J3490

== ENCOUNTER 2023-05-13 12:06 | Emergency (ER) | payer MEDICARE, OTHER ==
[~2023-05-13] VITALS: Ht 165.1 cm; Wt 49.8 kg
[~2023-05-13 12:06] MED LIST changes: -ACET-1158 PO; +ACET500T58 PO; -ALBU108A5 INH; -BACDST PO; -GABA100C9 PO; -LEVO500T31 PO; -METR500T PO; -MULT-927 PO; -PROP10TA57 PO; +PROP1TAB51 PO; -SEMA3TAB PO; -SUCR1SUS10 PO; -TRAM-297 PO
[2023-05-13 13:04] LABS: Basophils # (auto) 0.1 10 ^3/uL (0-0.2); Basophils % (auto) 0.9 % (0.0-2.0); Eosinophils # (auto) 0 10 ^3/uL (0-0.8); Hematocrit 42.1 % (36.0-46.0); Hemoglobin 14.2 g/dL (12.2-16.2); Lymphocytes # (auto) 2.5 10 ^3/uL (0.4-5.4); Lymphocytes % (auto) 30.4 % (10.0-50.0); Mean Corpuscular Hemoglobin 32.2 pg (28.0-32.0); Mean Corpuscular Hgb Conc. 33.8 g/dL (32.0-36.0); Mean Corpuscular Volume 95.2 fL (80.0-100.0); Monocytes # (auto) 0.4 10 ^3/uL (0-1.3); Monocytes % (auto) 4.5 % (0.0-12.0); Neutrophils # (auto) 5.4 10 ^3/uL (1.6-8.6); Neutrophils % (auto) 64.2 % (37.0-80.0); Nucleated Red Blood Cells % 0.1 %; Red Blood Cells 4.42 10^6/uL (4.0-5.20); Red Cell Distribution Width 13.6 % (11.8-14.3); White Blood Cell 8.4 10^3/uL (4.4-10.8)
[2023-05-13 13:11] LABS: Urine Bacteria NONE SEEN /hpf (None Seen); Urine Blood Negative /uL (Negative); Urine Mucus FEW (None Seen); Urine Specific Gravity 1.019 (1.001-1.035); Urine WBC 440 /hpf (0 - 5); Urine WBC Clumps PRESENT /hpf (None Seen)
[2023-05-13 13:17] LABS: Albumin 3.9 g/dL (3.4-5.0); Calcium 8.7 mg/dL (8.5-10.1); Potassium 3.7 mmol/L (3.5-5.1)
[2023-05-13 13:21] LABS: BUN/Creatinine Ratio 19.3 (10.0-20.0); Bilirubin, Total 0.5 mg/dL (0.2-1.0); Total Protein 7.8 g/dL (6.4-8.2)
[2023-05-13 13:57] LABS: INR 0.95 (0.9-1.15); Partial Thromboplastin Time 25.4 SEC (24.5-34.5)
[2023-05-13] MEDS ORDERED: cefTRIAXone SOD 1,000 MG VL IM ONE (15:00)
[2023-05-13] MEDS ORDERED: CEPH500C PO (15:08)
[2023-05-13 19:38] VITALS: BP 115/75
== END 2023-05-13 19:45 | disposition home or self-care (01) ==
LOC: ER 12:06
DX: N39.0 Urinary tract infection, site not specified (principal); I10 Essential (primary) hypertension; E11.9 Type 2 diabetes mellitus without complications; F17.210 Nicotine dependence, cigarettes, uncomplicated; Z79.1 Long term (current) use of non-steroidal anti-inflammatories (NSAID); Z98.890 Other specified postprocedural states; Z79.4 Long term (current) use of insulin; Z79.899 Other long term (current) drug therapy
CPT/HCPCS: 36415; 71045; 80053; 81001; 82962; 84484; 85025; 85610; 85730; 93005; 96372; 99285; J0696

== ENCOUNTER 2023-11-11 14:11 | Emergency (ER) | payer MEDICARE, OTHER ==
[~2023-11-11] VITALS: Ht 160 cm; Wt 48.6 kg
[~2023-11-11 14:11] MED LIST changes: +CEPH500C PO
[2023-11-11 15:21] LABS: Basophils # (auto) 0.1 10 ^3/uL (0-0.2); Basophils % (auto) 1.2 % (0.0-2.0); Eosinophils # (auto) 0 10 ^3/uL (0-0.8); Hematocrit 39.1 % (36.0-46.0); Hemoglobin 13.3 g/dL (12.2-16.2); Lymphocytes # (auto) 2.8 10 ^3/uL (0.4-5.4); Lymphocytes % (auto) 44.1 % (10.0-50.0); Mean Corpuscular Hemoglobin 32.2 pg (28.0-32.0); Mean Corpuscular Hgb Conc. 34.1 g/dL (32.0-36.0); Mean Corpuscular Volume 94.6 fL (80.0-100.0); Monocytes # (auto) 0.3 10 ^3/uL (0-1.3); Monocytes % (auto) 4.7 % (0.0-12.0); Neutrophils # (auto) 3.2 10 ^3/uL (1.6-8.6); Red Blood Cells 4.13 10^6/uL (4.0-5.20); Red Cell Distribution Width 13.2 % (11.8-14.3); White Blood Cell 6.4 10^3/uL (4.4-10.8)
[2023-11-11 15:29] LABS: Urine Bacteria FEW /hpf (None Seen); Urine Blood Negative /uL (Negative); Urine Budding Yeast MODERATE /hpf (None Seen); Urine Clarity Clear (Clear); Urine Color Yellow (Yellow); Urine Protein, UAD 2+ (Negative); Urine Specific Gravity 1.019 (1.001-1.035); Urine Urobilinogen Normal (Negative); Urine WBC 14 /hpf (0 - 5)
[2023-11-11 15:52] LABS: Albumin 4.2 g/dL (3.2-4.8); Alkaline Phosphatase 87 U/L (46-116); Anion Gap 7 (5-15); Aspartate Aminotransferase 12 U/L (13-40); BUN/Creatinine Ratio 12.2 (10.0-20.0); Blood Urea Nitrogen 12 mg/dL (9-23); Calcium 9.5 mg/dL (8.7-10.4); Carbon Dioxide 27 mmol/L (20-30); Chloride 104 mmol/L (98-107); Glucose 315 mg/dL (74-106); Potassium 3.3 mmol/L (3.5-5.1); Sodium 138 mmol/L (136-145)
[2023-11-11 15:53] LABS: Alanine Aminotransferase 9 U/L (7-40); Bilirubin, Total 0.4 mg/dL (0.2-1.0); Total Protein 6.7 g/dL (5.7-8.2)
[2023-11-11] MEDS ORDERED: CIPR-173 PO (16:02)
[2023-11-11 16:20] VITALS: BP 103/60; PULSE 77; RESP 15; TEMP 97.5; O2SAT 95
== END 2023-11-11 16:25 | disposition home or self-care (01) ==
LOC: ER 14:11
DX: N39.0 Urinary tract infection, site not specified (principal); I10 Essential (primary) hypertension; E11.9 Type 2 diabetes mellitus without complications; R51.9 Headache, unspecified; J45.909 Unspecified asthma, uncomplicated; F17.210 Nicotine dependence, cigarettes, uncomplicated; Z90.49 Acquired absence of other specified parts of digestive tract; Z87.442 Personal history of urinary calculi
CPT/HCPCS: 36415; 70450; 71046; 80053; 81001; 82962; 85025; 93005

== ENCOUNTER 2023-12-09 11:04 | Emergency (ER) | payer MEDICARE, OTHER ==
[~2023-12-09] VITALS: Ht 160 cm; Wt 49.6 kg
[~2023-12-09 11:04] MED LIST changes: +CIPR-173 PO
[2023-12-09] MEDS ORDERED: MECLIZINE HCL 25 MG TAB PO ONE (11:15)
[2023-12-09] MEDS ORDERED: ONDANSETRON ODT 4 MG TAB PO ONE (11:15)
[2023-12-09 11:58] LABS: Basophils # (auto) 0.1 10 ^3/uL (0-0.2); Basophils % (auto) 1.1 % (0.0-2.0); Eosinophils # (auto) 0 10 ^3/uL (0-0.8); Hematocrit 40.9 % (36.0-46.0); Hemoglobin 13.8 g/dL (12.2-16.2); Lymphocytes # (auto) 2.1 10 ^3/uL (0.4-5.4); Lymphocytes % (auto) 28.5 % (10.0-50.0); Mean Corpuscular Hemoglobin 31.8 pg (28.0-32.0); Mean Corpuscular Hgb Conc. 33.8 g/dL (32.0-36.0); Mean Corpuscular Volume 94.1 fL (80.0-100.0); Monocytes # (auto) 0.4 10 ^3/uL (0-1.3); Monocytes % (auto) 5.4 % (0.0-12.0); Neutrophils # (auto) 4.9 10 ^3/uL (1.6-8.6); Nucleated Red Blood Cells % 0.1 %; Red Blood Cells 4.35 10^6/uL (4.0-5.20); Red Cell Distribution Width 13.5 % (11.8-14.3); White Blood Cell 7.5 10^3/uL (4.4-10.8)
[2023-12-09 12:01] LABS: Anion Gap 6 (5-15); Carbon Dioxide 26 mmol/L (20-30); Chloride 105 mmol/L (98-107); Potassium 3.9 mmol/L (3.5-5.1); Sodium 137 mmol/L (136-145)
[2023-12-09 12:02] LABS: Calcium 9.4 mg/dL (8.7-10.4)
[2023-12-09 12:07] LABS: BUN/Creatinine Ratio 18.4 (10.0-20.0); Blood Urea Nitrogen 18 mg/dL (9-23); Glucose 295 mg/dL (74-106); Lipase 37 U/L (12-53)
[2023-12-09] MEDS ORDERED: ZOFR4T PO (12:11)
[2023-12-09] MEDS ORDERED: MECL1TAB42 PO (12:11)
[2023-12-09 13:51] LABS: Urine Bacteria FEW /hpf (None Seen); Urine Blood Negative /uL (Negative); Urine Budding Yeast MODERATE /hpf (None Seen); Urine Clarity Clear (Clear); Urine Color Yellow (Yellow); Urine Hyaline Cast FEW /lpf (0 - 2); Urine Mucus FEW (None Seen); Urine Protein, UAD 2+ (Negative); Urine Specific Gravity 1.016 (1.001-1.035); Urine Urobilinogen Normal (Negative); Urine WBC 36 /hpf (0 - 5); Urine pH 6.5 (5.0-8.0)
[2023-12-09 17:27] VITALS: BP 125/66; PULSE 88; RESP 15; TEMP 97.8; O2SAT 98
[2023-12-09] MEDS ORDERED: CEPH250C PO (17:39)
== END 2023-12-09 15:03 | disposition home or self-care (01) ==
LOC: ER 11:04
DX: R42 Dizziness and giddiness (principal); E11.65 Type 2 diabetes mellitus with hyperglycemia; I10 Essential (primary) hypertension; J45.909 Unspecified asthma, uncomplicated; F17.210 Nicotine dependence, cigarettes, uncomplicated; Z90.49 Acquired absence of other specified parts of digestive tract; Z90.89 Acquired absence of other organs
CPT/HCPCS: 36415; 70450; 80048; 81001; 83690; 84484; 85025; 93005; 99284; J8597; Q0162

== ENCOUNTER 2024-05-15 10:28 | Emergency (ER) | payer MEDICARE, OTHER ==
[~2024-05-15] VITALS: Ht 149.9 cm; Wt 49.3 kg
[~2024-05-15 10:28] MED LIST changes: +CEPH250C PO; +MECL1TAB42 PO; +ZOFR4T PO
[2024-05-15 12:11] VITALS: BP 102/65; PULSE 79; RESP 18; TEMP 98.3; O2SAT 99
== END 2024-05-15 12:12 | disposition left against medical advice (07) ==
LOC: ER 10:28
DX: M79.641 Pain in right hand (principal); M25.531 Pain in right wrist; M79.631 Pain in right forearm; Z53.21 Procedure and treatment not carried out due to patient leaving prior to being seen by health care provider; W01.0XXA Fall on same level from slipping, tripping and stumbling without subsequent striking against object, initial encounter; Y93.89 Activity, other specified; Y92.89 Other specified places as the place of occurrence of the external cause; Y99.8 Other external cause status

== ENCOUNTER 2024-05-24 19:07 | Inpatient (IN) | payer MEDICARE, OTHER ==
[~2024-05-24] VITALS: Ht 160 cm; Wt 51.0 kg
[2024-05-24 19:58] LABS: Basophils # (auto) 0.1 10 ^3/uL (0-0.2); Basophils % (auto) 1.7 % (0.0-2.0); Eosinophils # (auto) 0 10 ^3/uL (0-0.8); Hematocrit 37.8 % (36.0-46.0); Hemoglobin 12.9 g/dL (12.2-16.2); Lymphocytes # (auto) 2.8 10 ^3/uL (0.4-5.4); Lymphocytes % (auto) 35.4 % (10.0-50.0); Mean Corpuscular Hemoglobin 31.9 pg (28.0-32.0); Mean Corpuscular Hgb Conc. 34.3 g/dL (32.0-36.0); Mean Corpuscular Volume 93.1 fL (80.0-100.0); Monocytes # (auto) 0.4 10 ^3/uL (0-1.3); Monocytes % (auto) 5.2 % (0.0-12.0); Neutrophils # (auto) 4.5 10 ^3/uL (1.6-8.6); Neutrophils % (auto) 57.7 % (37.0-80.0); Nucleated Red Blood Cells % 0.1 %; Red Blood Cells 4.06 10^6/uL (4.0-5.20); Red Cell Distribution Width 13.8 % (11.8-14.3); White Blood Cell 7.8 10^3/uL (4.4-10.8)
[2024-05-24 20:07] LABS: Chloride 105 mmol/L (98-107); Potassium 3.2 mmol/L (3.5-5.1); Sodium 136 mmol/L (136-145)
[2024-05-24 20:08] LABS: Anion Gap 5 (5-15); Calcium 9.7 mg/dL (8.7-10.4); Carbon Dioxide 26 mmol/L (20-30)
[2024-05-24 20:13] LABS: Blood Urea Nitrogen 12 mg/dL (9-23); Glucose 262 mg/dL (74-106)
[2024-05-24 21:06] VITALS: PULSE 75; RESP 16; O2SAT 99
[2024-05-24 21:43] LABS: Urine Bacteria FEW /hpf (None Seen); Urine Blood TRACE /uL (Negative); Urine Budding Yeast LOADED /hpf (None Seen); Urine Clarity Turbid (Clear); Urine Color Light-Yellow (Yellow); Urine Protein, UAD 1+ (Negative); Urine Specific Gravity 1.014 (1.001-1.035); Urine Urobilinogen Normal (Negative); Urine WBC 36 /hpf (0 - 5)
[2024-05-24] MEDS ORDERED: DOCUSATE SOD 100 MG CAP PO PRN (21:45)
[2024-05-24] MEDS ORDERED: ACETAMINOPHEN 325 MG TAB PO PRN (21:45)
[2024-05-24] MEDS ORDERED: DEXTROSE (50%) 50ML SYRG IV PRN (21:45)
[2024-05-24] MEDS ORDERED: HYDROcodone-ACET 5/325MG TAB PO PRN (21:45)
[2024-05-24] MEDS ORDERED: ONDANSETRON HCL 4 MG/2 ML VIAL IV PRN (21:45)
[2024-05-24] MEDS: SODIUM CHLORIDE 0.9% 1,000 ML IV ONE (22:42)
[2024-05-24] MEDS: POTASSIUM EFFERVESENT TAB 25 MEQ PO ONE (22:44)
[2024-05-24] MEDS: ACCU-CHEK COMFORT CURVE STRIP VI SCH (22:51)
[2024-05-24] MEDS: InsuLIN REG 1unit/0.01ml Soln (100units/ml) SC SCH (22:54)
[2024-05-24] MEDS ORDERED: NITROGLYCERIN 0.4 MG SL TAB SL PRN (23:45)
[2024-05-24] MEDS ORDERED: MORPHINE SULFATE INJ 2 MG/ml SYRG IV PRN (23:45)
[2024-05-25] VITALS (8 sets, daily range): BP systolic 115–140; BP diastolic 63–81; PULSE 64–83; RESP 17–20; TEMP 97.5–99; O2SAT 94–98
[2024-05-25] MEDS: SODIUM CHLORIDE 0.9% 1,000 ML IV SCH (00:18)
[2024-05-25] MEDS: InsuLIN REG 1unit/0.01ml Soln (100units/ml) SC SCH (05:58)
[2024-05-25 06:29] LABS: Basophils # (auto) 0.1 10 ^3/uL (0-0.2); Basophils % (auto) 1.4 % (0.0-2.0); Eosinophils # (auto) 0 10 ^3/uL (0-0.8); Hematocrit 35.2 % (36.0-46.0); Lymphocytes # (auto) 2.8 10 ^3/uL (0.4-5.4); Lymphocytes % (auto) 39.3 % (10.0-50.0); Mean Corpuscular Hemoglobin 31.9 pg (28.0-32.0); Mean Corpuscular Hgb Conc. 34.2 g/dL (32.0-36.0); Mean Corpuscular Volume 93.2 fL (80.0-100.0); Monocytes # (auto) 0.4 10 ^3/uL (0-1.3); Monocytes % (auto) 6.1 % (0.0-12.0); Neutrophils # (auto) 3.8 10 ^3/uL (1.6-8.6); Neutrophils % (auto) 53.2 % (37.0-80.0); Red Blood Cells 3.77 10^6/uL (4.0-5.20); Red Cell Distribution Width 13.6 % (11.8-14.3); White Blood Cell 7.1 10^3/uL (4.4-10.8)
[2024-05-25 06:49] LABS: Albumin 3.7 g/dL (3.2-4.8); Alkaline Phosphatase 110 U/L (46-116); Anion Gap 5 (5-15); Aspartate Aminotransferase 12 U/L (13-40); BUN/Creatinine Ratio 11.4 (10.0-20.0); Bilirubin, Total 0.6 mg/dL (0.2-1.0); Blood Urea Nitrogen 8 mg/dL (9-23); Calcium 9.2 mg/dL (8.7-10.4); Carbon Dioxide 26 mmol/L (20-30); Chloride 109 mmol/L (98-107); Glucose 140 mg/dL (74-106); Potassium 3.1 mmol/L (3.5-5.1); Sodium 140 mmol/L (136-145); Total Protein 5.9 g/dL (5.7-8.2)
[2024-05-25 06:52] LABS: Alanine Aminotransferase < 9 U/L (7-40)
[2024-05-25] MEDS: PANTOPRAZOLE 40 MG/10 ML VIAL INJ IV SCH (08:28)
[2024-05-25] MEDS ORDERED: DONE5TAB11 PO (13:19)
[2024-05-25] MEDS: POTASSIUM EFFERVESENT TAB 25 MEQ PO ONE (22:31)
[2024-05-26] VITALS (7 sets, daily range): BP systolic 127–152; BP diastolic 66–84; PULSE 58–82; RESP 16–20; TEMP 97.4–98.7; O2SAT 93–96
[2024-05-26] MEDS: cefTRIAXone 1GM/50ML D5W 50 ML IV SCH (16:08)
[2024-05-27 05:00] VITALS: BP 107/68; PULSE 82; RESP 16; TEMP 98.6; O2SAT 99
[2024-05-27 08:00] VITALS: RESP 17
[2024-05-27 09:00] VITALS: BP 109/68; PULSE 76; RESP 16; TEMP 98.1; O2SAT 95
[2024-05-27 13:00] VITALS: BP 112/52; PULSE 63; RESP 17; TEMP 98.3; O2SAT 97
[2024-05-27] MEDS ORDERED: CIP500T PO (13:24)
[2024-05-27 15:51] VITALS: BP 106/68; PULSE 82; RESP 16; TEMP 37; O2SAT 99
[2024-05-27 17:00] VITALS: BP 129/67; PULSE 78; RESP 17; TEMP 98; O2SAT 96
== END 2024-05-27 17:30 | disposition home or self-care (01) | DRG 463 ==
LOC: ER 19:07 → OVERFLOW 23:41 → WEST WING 23:41
PROVIDERS: ADMIT Internal Medicine; ATTEND Pediatrics Pediatric Pulmonology
DX: N30.01 Acute cystitis with hematuria (principal); E11.65 Type 2 diabetes mellitus with hyperglycemia; E87.6 Hypokalemia; F17.210 Nicotine dependence, cigarettes, uncomplicated; I10 Essential (primary) hypertension; J45.909 Unspecified asthma, uncomplicated; Z87.442 Personal history of urinary calculi; Z90.49 Acquired absence of other specified parts of digestive tract; Z79.4 Long term (current) use of insulin; Z79.899 Other long term (current) drug therapy; Z82.49 Family history of ischemic heart disease and other diseases of the circulatory system; Z83.3 Family history of diabetes mellitus; K57.90 Diverticulosis of intestine, part unspecified, without perforation or abscess without bleeding; K29.70 Gastritis, unspecified, without bleeding
CPT/HCPCS: 36415; 74176; 80048; 80053; 81001; 82962; 83036; 83690; 84484; 85025; 87086; 93005; G0378; J1815

== ENCOUNTER 2025-04-27 11:59 | Inpatient (IN) | payer MEDICARE, OTHER ==
[~2025-04-27] VITALS: Ht 162.6 cm; Wt 49.8 kg
[~2025-04-27 11:59] MED LIST changes: -CEPH250C PO; -CEPH500C PO; +CIP500T PO; +DONE5TAB11 PO; -HYDR-4798 PO
[2025-04-27 12:25] VITALS: PULSE 75; RESP 12; O2SAT 99
--- NOTE | 2025-04-27 12:43 | DVH ---
XY CHEST PORTABLE, HISTORY: cp COMPARISON: XY CHEST PORTABLE on DOS: 05/13/23, XY CHEST XRAY 1 VIEW on DOS: 03/29/23, CXR1 on DOS: 10/29 XY CHEST PORTABLE on DOS: 05/13/23, XY CHEST XRAY 1 VIEW on DOS: 03/29/23, CXR1 on DOS: 10/29/22 TECHNICAL DATA: 1 view of the chest was obtained. FINDINGS: Lines and tubes: None Cardiomediastinal silhouette: normal Pulmonary vasculature: normal Lung expansion: normal Lung airspace: normal Lung interstitium: normal Pleura: normal Pneumothorax: no Bones: Unremarkable Other: no IMPRESSION: No acute intrathoracic abnormality.
[2025-04-27] MEDS: HYDROcodone-ACET 5/325MG TAB PO ONE (12:45)
--- NOTE | 2025-04-27 12:48 | ED.PDOC ---
HPI Comments 79 year old female presents to the ED with chief complaint of chest pain. Patient reports that she has been experiencing sharp chest past with associated SOB and radiation of pain to her back, radiating down her spine to her buttocks for the past 2 days. Patient relays that her pain has worsened over time. Patient notes she has a previous left hip replacement from 3-4 months ago. Patient denies any N/V, dizziness, headache, cough, fever, chills, numbness, weakness, or tingling. Chief Complaint: Chest Pain Time Seen by MD: 12:45 Primary Care Provider: UNKNOWN Reviewed Notes: Nurses Notes, Medications, Allergies Allergies: Coded Allergies: NO KNOWN ALLERGIES (Unverified , 06/14/17) Home Meds Active Scripts Acetaminophen (Acetaminophen) 500 Mg Tab, 500 MG PO Q4HPRN PRN, #30 TAB Prov:YASH PALACIO PAC 11/25/22 Pantoprazole Sodium Sesquihydr (Pantoprazole Sodium) 40 Mg Tab, 40 MG PO BID for 30 Days, #60 TAB Prov:VICK DOSS FIRE PREVENTION INSPECTOR 01/03/22 Reported Medications Donepezil Hydrochloride (DONEPEZIL HCL) 10 Mg Tab, 1 TAB PO DAILY 04/27/25 Aspirin (Aspirin Low Dose) 81 Mg Tab, 1 TAB PO DAILY 04/27/25 Insulin Detemir (Levemir Flextouch) 100 Unit/Ml Inj, 20 UNIT SC HS 07/02/21 Propranolol HCl (Propranolol Hydrochloride) 10 Mg Tab, 1 TAB PO BID 07/02/21 Discontinued Reported Medications Donepezil Hydrochloride (Aricept) 5 Mg Tab, 5 MG PO, TAB 05/25/24 Discontinued Scripts Ciprofloxacin Hydrochloride (Ciprofloxacin HCl) 500 Mg Tab, 500 MG PO BID for 7 Days, #14 TAB Prov:LANDEN STEPHENSON 05/27/24 Ondansetron Odt 4MG Tab (ZOFRAN PO) 4 Mg Tb, 4 MG PO TID for 7 Days, #21 TAB ODT TAB-DISSOLVE IN MOUTH, THEN SWALLOW Prov:EMANUEL GONZALEZ MD 12/09/23 Meclizine HCl (Meclizine 25) 25 Mg Tab, 25 MG PO TID for 4 Days, #12 TAB Prov:EMANUEL GONZALEZ MD 12/09/23 Ciprofloxacin Hcl (Cipro) 500 Mg Tab, 1 TAB PO BID, #14 TAB Prov:KONRAD OKEEFE MD 11/11/23 Naproxen (NAPROSYN TABLET) 500 Mg Tb, 1 TAB PO DAILY PRN for 30 Days, #30 TAB 1 Refill Prov:YASH DIAZ MD 01/06/22 Information Source: Patient Mode of Arrival: Ambulatory Severity: Moderate Timing: Days Duration: Since onset Prehospital treatment: None Location: Chest (L) Radiation: Back Quality: Sharp Onset: At Rest Cardiac Risk Factors: Smoker, HTN, Diabetes PE Risk Factors: None Associated Signs and Symptoms: SOB Past Medical History PAST MEDICAL HISTORY: Asthma, DM, HTN, Kidney Stones Surgical History: Cholecystectomy, , Hernia Repair, Tonsillectomy DAY CARE AIDE History: No Pertinent DAY CARE AIDE History Family History Family History: Reviewed,noncontributory to illness, Family hx of DM Social History Smoker: Cigarettes, Less Than 1 Pack/Day Alcohol: Occasionally Drugs: Denies Drug Use Lives In: Home Constitutional: denies: chills, diaphoresis, fatigue, fever, malaise, sweats, weakness, others EENTM: denies: blurred vision, double vision, ear bleeding, ear discharge, ear drainage, ear pain, ear ringing, eye pain, eye redness, hearing loss, mouth pain, mouth swelling, nasal discharge, nose bleeding, nose congestion, nose pain , photophobia, tearing, throat pain, throat swelling, voice changes, others Respiratory: reports: shortness of breath; denies: cough, hemoptysis, orthopnea, SOB at rest, SOB with excertion, stridor, wheezing, others Cardiovascular: reports: chest pain; denies: dizzy spells, diaphoresis, Dyspnea on exertion, edema, irregular heart beat, left arm pain, lightheadedness, palpitations, PND, syncope, others Gastrointestinal: denies: abdomen distended, abdominal pain, blood streaked bowels, constipated, diarrhea, dysphagia, difficulty swallowing, hematemesis, melena, nausea, poor appetite, poor fluid intake, rectal bleeding, rectal pain, vomiting, others Genitourinary: denies: abnormal vagina bleeding, burning, dyspareunia, dysuria, flank pain, frequency, hematuria, incontinence, pain, , vagina discharge, urgency, others Neurological: denies: dizziness, fainting, headache, left sided numbness, left sided weakness, numbness, paresthesia, pre-existing deficit, right sided numbness, right sided weakness, seizure, speech problems, tingling, tremors, weakness, others Musculoskeletal: reports: back pain; denies: gout, joint pain, joint swelling, muscle pain, muscle stiffness, neck pain, others Integumetry: denies: bruises, change in color, change in hair/nails, dryness, laceration, lesions, lumps, rash, wounds, others Allergic/Immunocompromised: denies: Difficulty Healing, Frequent Infections, Hives, Itching, others Hematologic/Lymphatic: denies: anemia, blood clots, easy bleeding, easy bruising, swollen glands, others Endocrine: denies: excessive hunger, excessive sweating, excessive thirst, excessive urination, flushing, intolerance to cold, intolerance to heat, unexplained weight gain, unexplained weight loss, others Psychiatric: denies: anxiety, bipolar disorder, depression, hopeless, panic disorder, schizophrenia, sleepless, suicidal, others All Other Systems: Reviewed and Negative Physical Exam General Appearance: No Apparent Distress HEENT: Other (Pupils and face symmetric. Moist mucous membranes.) Neck: Full Range of Motion, Normal Inspection Respiratory: Lungs Clear, No Accessory Muscle Use, No Respiratory Distress, Normal Breath Sounds Cardiovascular: No Edema, No JVD, Regular Rate/Rhythm Breast Exam: Deferred Gastrointestinal: Non Tender, Soft Genitalia: Deferred Pelvic: Deferred Rectal: Deferred Extremities: Normal inspection, Normal range of motion, Non-tender, No pedal edema Neurologic: Alert (Oriented x4), Normal Affect, Normal Mood, Other (Ambulatory) Cerebellar Function: NOT DONE Reflexes: NOT DONE Skin: Dry, Normal Color, Warm Lymphatic: NOT DONE EKG EKG : Comments Sinus rhythm, rate 76, normal intervals, normal axis, possible old inferior infarct, nonspecific T change. Was a procedure done? Was a procedure done?: No CP Differential Dx Differential Diagnosis: Angina, Anxiety / Panic Attack Differential Diagnosis: CHF Differential Diagnosis: Chest Wall Pain, Esophageal reflux/spasm, Gastritis, Myocardial Infarction, Pericarditis, Pneumonia, Other (Asthma) X-Ray, Labs, Meds, VS Vital Signs Date Time Temp Pulse Resp B/P (MAP) Pulse Ox O2 Delivery O2 Flow Rate FiO2 04/27/25 14:00 66 22 122/52 (75) 96 04/27/25 12:25 75 12 99 Room Air* 0 21 04/27/25 12:25 98.2 75 12 109/55 (73) 99 98.2 04/27/25 12:17 98.2 82 16 85/54 (64) 99 98.2 04/27/25 12:07 76 Lab Test 04/27/25 14:47 04/27/25 13:52 04/27/25 12:39 Range/Units POC Glucose 245 H 70-106 mg/dl Troponin I High Sensitivity 4 4 </=34 ng/L White Blood Count 7.5 4.4-10.8 10^3/uL Red Blood Count 3.98 L 4.0-5.20 10^6/uL Hemoglobin 12.8 12.2-16.2 g/dL Hematocrit 37.8 36.0-46.0 % Mean Corpuscular Volume 95.0 80.0-100.0 fL Mean Corpuscular Hemoglobin 32.1 H 28.0-32.0 pg Mean Corpuscular Hemoglobin Concent 33.8 32.0-36.0 g/dL Red Cell Distribution Width 13.8 11.8-14.3 % Platelet Count 191 140-450 10^3/uL Mean Platelet Volume 9.8 6.9-10.8 fL Neutrophils (%) (Auto) 71.7 37.0-80.0 % Lymphocytes (%) (Auto) 21.7 10.0-50.0 % Monocytes (%) (Auto) 5.5 0.0-12.0 % Eosinophils (%) (Auto) 0.0 0.0-7.0 % Basophils (%) (Auto) 1.1 0.0-2.0 % Neutrophils # (Auto) 5.3 1.6-8.6 10 ^3/uL Lymphocytes # (Auto) 1.6 0.4-5.4 10 ^3/uL Monocytes # (Auto) 0.4 0-1.3 10 ^3/uL Eosinophils # (Auto) 0 0-0.8 10 ^3/uL Basophils # (Auto) 0.1 0-0.2 10 ^3/uL Nucleated Red Blood Cells 0.1 % Prothrombin Time 10.5 9.3-11.8 sec Prothrombin Time INR 0.99 0.9-1.15 Activated Partial Thromboplast Time 26.1 24.5-34.5 SEC D-Dimer, Quantitative 0.47 0.0-0.49 mg/L FEU Sodium Level 143 136-145 mmol/L Potassium Level 4.4 3.5-5.1 mmol/L Chloride Level 109 H 98-107 mmol/L Carbon Dioxide Level 25 20-31 mmol/L Anion Gap 9 5-15 Blood Urea Nitrogen 24 H 9-23 mg/dL Creatinine 1.41 H 0.550-1.02 mg/dL Glomerular Filtration Rate Calc 38 >90 mL/min BUN/Creatinine Ratio 17.0 10.0-20.0 Serum Glucose 320 H 74-106 mg/dL Calcium Level 9.7 8.7-10.4 mg/dL B-Type Natriuretic Peptide 73.54 0-100 pg/mL Current Medications Medications (Trade) Dose Ordered Sig/Alexa Route Start Time Stop Time Status Last Admin Acetaminophen/ Hydrocodone Bitart ([place] 5/325MG Tab) 1 tab ONCE ONCE PO 04/27/25 12:30 04/27/25 12:31 DC 04/27/25 12:45 Aspirin 325 mg ONCE ONCE PO 04/27/25 13:45 04/27/25 13:46 DC 04/27/25 14:05 Chest XR: No acute intrathoracic abnormality. X-Ray, Labs, Meds, VS Comment 79-year-old female with a history of hypertension, diabetes, asthma and kidney stones presenting complaining of chest pain and shortness of breath Vitals remarkable for initial blood pressure of 85/54 Exam unremarkable Rhythm strip independently interpreted by me: Sinus rhythm, rate 86, no ectopy. Chest x-ray unremarkable CBC, metabolic panel, BNP and troponin unremarkable Patient treated with the following in the ED: Aspirin 325 mg p.o. On re-evaluation, patient stated chest pain was controlled. Blood pressure was 109/55 Plan is to admit the patient for Cardiology evaluation and blood pressure monitoring. Images Reviewed?: Images reviewed and evaluated by me Time of 1ST Reevaluation: 13:44 Reevaluation 1ST: Unchanged Time of 2ND Reevaluation: 15:45 Reevaluation 2ND: Improved Patient Education/Counseling: Diagnosis, Treatment Family Education/Counseling: No Family Present Departure 1 Departure Time of Disposition: 15:45 Impression: Primary Impression: Chest pain with high risk for cardiac etiology Additional Impression: Transient hypotension Disposition: ADMITTED INPATIENT Admit to: Tele Condition: Guarded Critical Care Note Critical Care Time?: No Stability Stability form required: No Heart Score Heart Score: Heart Score Response (Comments) Value History Highly Suspicious 2 EKG Repolarization Disturb 1 Age >65 2 Risk Factors >3 or Hx ASHD 2 Troponin Normal limit 0 Total 7 I personally scribed for THU ANDRADE MD ([email or web address]) on 04/27/25 at 12:48. Electronically submitted by Sanjeev Castillo ([email or web address]). I personally scribed for THU ANDRADE MD ([email or web address]) on 04/27/25 at 13:33. Electronically submitted by Sanjeev Castillo ([email or web address]). THU ANDRADE MD Apr 27, 2025 12:48
[2025-04-27 12:53] LABS: Basophils # (auto) 0.1 10 ^3/uL (0-0.2); Basophils % (auto) 1.1 % (0.0-2.0); Eosinophils # (auto) 0 10 ^3/uL (0-0.8); Hematocrit 37.8 % (36.0-46.0); Hemoglobin 12.8 g/dL (12.2-16.2); Lymphocytes # (auto) 1.6 10 ^3/uL (0.4-5.4); Lymphocytes % (auto) 21.7 % (10.0-50.0); Mean Corpuscular Hemoglobin 32.1 pg (28.0-32.0); Mean Corpuscular Hgb Conc. 33.8 g/dL (32.0-36.0); Monocytes # (auto) 0.4 10 ^3/uL (0-1.3); Monocytes % (auto) 5.5 % (0.0-12.0); Neutrophils # (auto) 5.3 10 ^3/uL (1.6-8.6); Neutrophils % (auto) 71.7 % (37.0-80.0); Nucleated Red Blood Cells % 0.1 %; Platelet Count (auto) 191 10^3/uL (140-450); Red Blood Cells 3.98 10^6/uL (4.0-5.20); Red Cell Distribution Width 13.8 % (11.8-14.3); White Blood Cell 7.5 10^3/uL (4.4-10.8)
[2025-04-27 13:04] LABS: Potassium 4.4 mmol/L (3.5-5.1); Sodium 143 mmol/L (136-145)
[2025-04-27 13:05] LABS: Anion Gap 9 (5-15); Calcium 9.7 mg/dL (8.7-10.4); Carbon Dioxide 25 mmol/L (20-31)
[2025-04-27 13:09] LABS: INR 0.99 (0.9-1.15); Partial Thromboplastin Time 26.1 SEC (24.5-34.5); Prothrombin Time 10.5 sec (9.3-11.8)
[2025-04-27 13:23] LABS: Blood Urea Nitrogen 24 mg/dL (9-23); Chloride 109 mmol/L (98-107); Glucose 320 mg/dL (74-106)
[2025-04-27] MEDS: ASPirin 325 MG TAB PO ONE (14:05)
[2025-04-27] MEDS ORDERED: HYDROcodone-ACET 5/325MG TAB PO PRN (15:45)
[2025-04-27] MEDS ORDERED: NITROGLYCERIN 0.4 MG SL TAB SL PRN (15:45)
[2025-04-27] MEDS ORDERED: DOCUSATE SOD 100 MG CAP PO PRN (15:45)
[2025-04-27] MEDS ORDERED: MORPHINE SULFATE INJ 2 MG/ml SYRG IV PRN (15:45)
[2025-04-27] MEDS ORDERED: ONDANSETRON HCL 4 MG/2 ML VIAL IV PRN (15:45)
[2025-04-27] MEDS ORDERED: ACETAMINOPHEN 325 MG TAB PO PRN (15:45)
[2025-04-27] MEDS ORDERED: DONE1TAB88 PO (15:55)
[2025-04-27] MEDS ORDERED: ASPI-325 PO (15:55)
[2025-04-27] MEDS ORDERED: DEXTROSE (50%) 50ML SYRG IV PRN (16:00)
--- NOTE | 2025-04-27 16:12 | DVHHP2 ---
History of Present Illness Reason for Visit: Chest pain History of Present Illness Rama Sim is a 79-year-old female with past medical history of dementia, hypertension, asthma, kidney stones, and diabetes, who came to the hospital for chest pain. Patient is alert and oriented x 1. She can tell me her name, but not where she is, why she is in the hospital, the date, or the president. She states her hip surgery was a couple months ago, but according to her [id number], who she lives with, the surgery was years ago. The [id number], Emily, states she brought her to the hospital due to her complaining of chest pain that radiates to her arms and back for 2-3 days. She wanted her to get a cardiac work up to make sure she is doing well. 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 Endocrine: Diabetes Past Surgical History: Cholecystectomy, , Hernia Repair, Other (left hip), Total hip replacement (left), Tonsillectomy Smoke: <1 pack per day ALCOHOL: rare Drugs: None Lives: with Family Domestic Violence: Neg Review of Systems Constitutional: No: Fever, Chills, Sweats, Weakness, Malaise, Other Eyes: No: Pain, Vision change, Conjunctivae inflammation, Eyelid inflammation, Other, Redness ENT: No: Ear pain, Ear discharge, Nose pain, Nose discharge, Nose congestion, Mouth pain, Mouth swelling, Throat pain, Throat swelling, Other Respiratory: No: Cough, Dry, Shortness of breath, SOB with excertion, Wheezing, Hemoptysis, Pleuritic Pain, Sputum, Wheezing, Other Cardiovascular: Chest Pain (radiates to arms and back); No: Palpitations, Orthopnea, Paroxysmal Noc. Dyspnea, Edema, Lt Headedness, Other Gastrointestinal: No: Nausea, Vomiting, Abdominal Pain, Diarrhea, Constipation, Melena, Hematochezia, Other Genitourinary: No Dysuria, No Frequency, No Incontinence, No Hematuria, No Retention, No Other Musculoskeletal: No: other, neck pain, shoulder pain, arm pain, back pain, hand pain, leg pain, foot pain Skin: No: Rash, Lesions, Jaundice, Bruising, Other Neurological: No: Weakness, Numbness, Incoordination, Change in speech, Confusion, Seizures, Other Allergies: Coded Allergies: NO KNOWN ALLERGIES (Unverified , 06/14/17) Exam Vital Signs Vital Signs Date Time Temp Pulse Resp B/P (MAP) Pulse Ox O2 Delivery O2 Flow Rate FiO2 04/27/25 14:00 66 22 122/52 (75) 96 04/27/25 12:25 Room Air* 0 21 04/27/25 12:25 98.2 98.2 General Appearance: Alert, Oriented X3, Cooperative HEENT: Atraumatic, PERRLA, Mucous membr. moist/pink Respiratory: Clear to auscultation, Normal air movement Cardiovascular: Regular rate, Normal S1, Normal S2, No murmurs Abdominal: Normal bowel sounds, Soft, No tenderness, No hepatospenomegaly Extremities: No clubbing, No cyanosis, No edema, Normal pulses, No tenderness/swelling Skin: No rashes, No breakdown, No significant lesion Neuro: Normal gait, Normal speech, Strength at 5/5 X4 ext Psych/Mental Status: Mood NL Labs/Xrays Labs Test 04/27/25 14:47 04/27/25 13:52 04/27/25 12:39 Range/Units POC Glucose 245 H 70-106 mg/dl Troponin I High Sensitivity 4 </=34 ng/L White Blood Count 7.5 4.4-10.8 10^3/uL Red Blood Count 3.98 L 4.0-5.20 10^6/uL Hemoglobin 12.8 12.2-16.2 g/dL Hematocrit 37.8 36.0-46.0 % Mean Corpuscular Volume 95.0 80.0-100.0 fL Mean Corpuscular Hemoglobin 32.1 H 28.0-32.0 pg Mean Corpuscular Hemoglobin Concent 33.8 32.0-36.0 g/dL Red Cell Distribution Width 13.8 11.8-14.3 % Platelet Count 191 140-450 10^3/uL Mean Platelet Volume 9.8 6.9-10.8 fL Neutrophils (%) (Auto) 71.7 37.0-80.0 % Lymphocytes (%) (Auto) 21.7 10.0-50.0 % Monocytes (%) (Auto) 5.5 0.0-12.0 % Eosinophils (%) (Auto) 0.0 0.0-7.0 % Basophils (%) (Auto) 1.1 0.0-2.0 % Neutrophils # (Auto) 5.3 1.6-8.6 10 ^3/uL Lymphocytes # (Auto) 1.6 0.4-5.4 10 ^3/uL Monocytes # (Auto) 0.4 0-1.3 10 ^3/uL Eosinophils # (Auto) 0 0-0.8 10 ^3/uL Basophils # (Auto) 0.1 0-0.2 10 ^3/uL Nucleated Red Blood Cells 0.1 % Prothrombin Time 10.5 9.3-11.8 sec Prothrombin Time INR 0.99 0.9-1.15 Activated Partial Thromboplast Time 26.1 24.5-34.5 SEC D-Dimer, Quantitative 0.47 0.0-0.49 mg/L FEU Sodium Level 143 136-145 mmol/L Potassium Level 4.4 3.5-5.1 mmol/L Chloride Level 109 H 98-107 mmol/L Carbon Dioxide Level 25 20-31 mmol/L Anion Gap 9 5-15 Blood Urea Nitrogen 24 H 9-23 mg/dL Creatinine 1.41 H 0.550-1.02 mg/dL Glomerular Filtration Rate Calc 38 >90 mL/min BUN/Creatinine Ratio 17.0 10.0-20.0 Serum Glucose 320 H 74-106 mg/dL Calcium Level 9.7 8.7-10.4 mg/dL B-Type Natriuretic Peptide 73.54 0-100 pg/mL XY CHEST PORTABLE, FINDINGS: Lines and tubes: None Cardiomediastinal silhouette: normal Pulmonary vasculature: normal Lung expansion: normal Lung airspace: normal Lung interstitium: normal Pleura: normal Pneumothorax: no Bones: Unremarkable Other: no IMPRESSION: No acute intrathoracic abnormality. Assessment/Plan Assessment/Plan Assessment: Uncontrolled diabetes mellitus, Chest pain R/O ACS, Acute kidney injury, Hypertension, Dementia, Plan: Admit to Tele, Cardiology consult, A1c, lipid panel, TSH, ASA and statin, ECHO, Carotid duplex, IV hydration, Accu checks Q AC&HS with sliding scale, Home medications reconciled, Plan discussed with: Patient, Daughter My Orders Orders - NU MONTERROSO Procedure Category Date Status Time Admit ADMIT 04/27/25 Verified 15:45 Code Status CODE 04/27/25 Verified 15:45 2 Gm Sodium Diet DIET 04/27/25 Verified Dinner Hydrocodone-Acet PHA 04/27/25 Verified 5/325mg Tab ([place] 15:45 Date of Service: Apr 27, 2025 Billing Provider: NU MONTERROSO Common Visit Codes: 50657-IROICIM INP/OBS CARE (MOD) NU MONTERROSO Apr 27, 2025 16:12
[2025-04-27] MEDS: SODIUM CHLORIDE 0.9% 1,000 ML IV ONE (16:33)
[2025-04-27] MEDS: InsuLIN REG 1unit/0.01ml Soln (100units/ml) SC SCH ×2 (17:00→22:43)
[2025-04-27] MEDS: ACCU-CHEK COMFORT CURVE STRIP VI SCH (18:51)
--- NOTE | 2025-04-27 19:11 | DVH ---
CAROTID DOPPLER ULTRASOUND HISTORY: Chest pain COMPARISON: None TECHNIQUE: Real time cortez scale, color Doppler, and spectral duplex images are obtained through the c arotid and vertebral arteries. Findings: Peak systolic velocity right internal carotid artery is 65 cm/s and right common carotid artery is 60 cm/s. Ratio is 1.1. Antegrade flow noted in right vertebral artery. Mild atherosclerotic plaque note d within the right carotid arterial system. Peak systolic velocity left internal carotid artery is 103 cm/s and left common carotid artery is 55 cm/s. Ratio is 1.9. Antegrade flow noted in left vertebral artery. No significant atherosclerotic yuriy que noted within the left carotid arterial system. Impression: 1. No evidence of hemodynamically significant stenosis within the bilateral carotid arterial systems. 2. Antegrade flow within bilateral vertebral arteries.
[2025-04-27 20:30] VITALS: BP 145/81; PULSE 78; RESP 13; TEMP 97.9; O2SAT 94
[2025-04-27] MEDS ORDERED: PROPRANOLOL HCL 20 MG TAB PO SCH (22:00)
[2025-04-27] MEDS: INSULIN DETEMIR SC SCH (22:00)
[2025-04-27] MEDS: ATORVASTATIN 20 MG TAB PO SCH (22:39)
[2025-04-27] MEDS: DONEPEZIL HYDROCHLORIDE 5 MG TAB PO SCH (22:39)
[2025-04-27 22:58] VITALS: PULSE 74; RESP 16; O2SAT 96
[2025-04-27 23:00] VITALS: BP 122/71; PULSE 74; PULSE 80; RESP 18; TEMP 97.2; O2SAT 96
[2025-04-27] MEDS ORDERED: ALBU108A5 INH (23:17)
[2025-04-27] MEDS ORDERED: GAB100C PO (23:17)
[2025-04-27 23:22] VITALS: BP 122/71; PULSE 74; RESP 16; TEMP 97.2; O2SAT 96
[2025-04-27] MEDS: INSULIN LANTUS (GLARGINE) 1 /0.01ml (100units/ml) SC ONE (23:28)
[2025-04-28] VITALS (8 sets, daily range): BP systolic 98–140; BP diastolic 47–75; PULSE 67–86; RESP 14–19; TEMP 97.8–99; O2SAT 95–99
--- NOTE | 2025-04-28 00:34 | DVHINCON2 ---
Date of service: Apr 27, 2025 Referring Physician Gaby Reason for Consultation Chest pain History of Present Illness This is a 79 year old female with a PMH of Asthma, DM, HTN, Kidney Stones who presents to the ED with a complaint of sharp chest pain x 2 days. Patient reports associated SOB and radiation of pain to her back, radiating down her spine to her buttocks. Patient relays that her pain has worsened gradually over time. Patient notes she recently had a left hip replacement surgery approx. 3-4 months ago. Chest x-ray shows NAD. Cartoid Doppler showed no evidence of hemodynamically significant stenosis within the bilateral carotid arterial systems. Antegrade flow within bilateral vertebral arteries. EKG is NSR at 76. CBC is unremarkable. Troponin is negative. BNP 73.54. 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 Patient was admitted to the hospital. I am asked to consult on this patient. Family History: Family history: Diabetes mellitus G8 FATHER G8 MOTHER Hypertension G8 FATHER Allergies: Coded Allergies: NO KNOWN ALLERGIES (Unverified , 06/14/17) Home Meds Active Scripts Acetaminophen (Acetaminophen) 500 Mg Tab, 500 MG PO Q4HPRN PRN, #30 TAB Prov:YASH PALACIO PAC 11/25/22 Pantoprazole Sodium Sesquihydr (Pantoprazole Sodium) 40 Mg Tab, 40 MG PO BID for 30 Days, #60 TAB Prov:VICK DOSS OVERSEER [employer]EN 01/03/22 Reported Medications Gabapentin (Gabapentin) 100 Mg Cap, 1 CAP PO TID 04/27/25 Albuterol Sulfate (Albuterol Sulfate Hfa) 108 Mcg/Act Aer, INH 04/27/25 Donepezil Hydrochloride (DONEPEZIL HCL) 10 Mg Tab, 1 TAB PO DAILY 04/27/25 Aspirin (Aspirin Low Dose) 81 Mg Tab, 1 TAB PO DAILY 04/27/25 Insulin Detemir (Levemir Flextouch) 100 Unit/Ml Inj, 20 UNIT SC HS 07/02/21 Propranolol HCl (Propranolol Hydrochloride) 10 Mg Tab, 1 TAB PO BID 07/02/21 Discontinued Reported Medications Donepezil Hydrochloride (Aricept) 5 Mg Tab, 5 MG PO, TAB 05/25/24 Discontinued Scripts Ciprofloxacin Hydrochloride (Ciprofloxacin HCl) 500 Mg Tab, 500 MG PO BID for 7 Days, #14 TAB Prov:LANDEN STEPHENSON 05/27/24 Ondansetron Odt 4MG Tab (ZOFRAN PO) 4 Mg Tb, 4 MG PO TID for 7 Days, #21 TAB ODT TAB-DISSOLVE IN MOUTH, THEN SWALLOW Prov:EMANUEL GONZALEZ MD 12/09/23 Meclizine HCl (Meclizine 25) 25 Mg Tab, 25 MG PO TID for 4 Days, #12 TAB Prov:EMANUEL GONZALEZ MD 12/09/23 Ciprofloxacin Hcl (Cipro) 500 Mg Tab, 1 TAB PO BID, #14 TAB Prov:KONRAD OKEEFE MD 11/11/23 Naproxen (NAPROSYN TABLET) 500 Mg Tb, 1 TAB PO DAILY PRN for 30 Days, #30 TAB 1 Refill Prov:YASH DIAZ MD 01/06/22 Current Medications Current Medications Medications (Trade) Dose Ordered Sig/Alexa Route PRN Reason Start Time Stop Time Status Last Admin Acetaminophen/ Hydrocodone Bitart ([place] 5/325MG Tab) 1 tab Q4HP PRN PO MODERATE PAIN (4-6 PAIN SCALE) 04/27/25 15:45 Ondansetron HCl (Zofran) 4 mg Q4HP PRN IV NAUSEA / VOMITING 04/27/25 15:45 Docusate Sodium (Colace Capsule) 100 mg BIDPRN PRN PO FOR CONSTIPATION 04/27/25 15:45 Acetaminophen (Tylenol Tablet) 650 mg Q6HP PRN PO PAIN SCALE 1-3 OR TEMP>100.4 04/27/25 15:45 Nitroglycerin (Ntrostat Sublingual) 0.4 mg Q5MINP PRN SL FOR CHEST PAIN 04/27/25 15:45 Morphine Sulfate 2 mg Q30M PRN IV FOR CHEST PAIN 04/27/25 15:45 Diagnostic Test (Pha) (Accu-Chek Comfort Curve T) 1 strip ACHS 04/27/25 17:00 04/27/25 18:51 Insulin Human Regular (InsuLIN R) HS SC 04/27/25 22:00 Insulin Human Regular (InsuLIN R) AC SC 04/27/25 17:00 Dextrose 50 ml UD PRN IV Blood Sugar LESS THAN 60 04/27/25 16:00 Patient Own Medication 20 unit HS SC 04/27/25 22:00 Aspirin (Ecotrin Enteric Coated Tablet) 81 mg DAILY PO 04/28/25 10:00 Donepezil HCl (Aricept Tablet) 10 mg HS PO 04/27/25 22:00 Propranolol HCl (Inderal Tablet) 10 mg BID PO 04/27/25 22:00 Hold Atorvastatin Calcium (Lipitor) 20 mg HS PO 04/27/25 22:00 Review of Systems Constitutional: denies: chills, diaphoresis, fatigue, fever, malaise, sweats, weakness, others EENTM: denies: blurred vision, double vision, ear bleeding, ear discharge, ear drainage, ear pain, ear ringing, eye pain, eye redness, hearing loss, mouth pain, mouth swelling, nasal discharge, nose bleeding, nose congestion, nose pain, photophobia, tearing, throat pain, throat swelling, voice changes, others Respiratory: reports: shortness of breath; denies: cough, hemoptysis, orthopnea, SOB at rest, SOB with excertion, stridor, wheezing, others Cardiovascular: reports: chest pain; denies: dizzy spells, diaphoresis, Dyspnea on exertion, edema, irregular heart beat, left arm pain, lightheadedness, palpitations, PND, syncope, others Gastrointestinal: denies: abdomen distended, abdominal pain, blood streaked bowels, constipated, diarrhea, dysphagia, difficulty swallowing, hematemesis, melena, nausea, poor appetite, poor fluid intake, rectal bleeding, rectal pain, vomiting, others Genitourinary: denies: abnormal vagina bleeding, burning, dyspareunia, dysuria, flank pain, frequency, hematuria, incontinence, pain, , vagina discharge, urgency, others Neurological: denies: dizziness, fainting, headache, left sided numbness, left sided weakness, numbness, paresthesia, pre-existing deficit, right sided n umbness, right sided weakness, seizure, speech problems, tingling, tremors, weakness, others Musculoskeletal: reports: back pain; denies: gout, joint pain, joint swelling, muscle pain, muscle stiffness, neck pain, others Integumetry: denies: bruises, change in color, change in hair/nails, dryness, laceration, lesions, lumps, rash, wounds, others Allergic/Immunocompromised: denies: Difficulty Healing, Frequent Infections, Hives, Itching, others Hematologic/Lymphatic: denies: anemia, blood clots, easy bleeding, easy bruising, swollen glands, others Endocrine: denies: excessive hunger, excessive sweating, excessive thirst, excessive urination, flushing, intolerance to cold, intolerance to heat, unexplained weight gain, unexplained weight loss, others Psychiatric: denies: anxiety, bipolar disorder, depression, hopeless, panic disorder, schizophrenia, sleepless, suicidal, others All Other Systems: Reviewed and Negative Vital Signs Vital Signs Date Time Temp Pulse Resp B/P (MAP) Pulse Ox O2 Delivery O2 Flow Rate FiO2 04/27/25 20:30 97.9 78 13 145/81 (102) 94 97.9 04/27/25 12:25 Room Air* 0 21 Physical Exam GENERAL: Alert and oriented x 3. No acute distress. EYES: PERRL, EOMI. Anicteric. HENT: Moist mucous membranes. LUNGS: Clear to auscultation bilaterally. CARDIOVASCULAR: Regular rate and rhythm. ABDOMEN: Soft, nontender and nondistended. EXTREMITIES: No edema. NEUROLOGIC: No focal neurological deficits. SKIN: Warm, dry. Labs/Diagnostic Data Labs Test 04/27/25 18:49 04/27/25 13:52 04/27/25 12:39 Range/Units POC Glucose 122 H 70-106 mg/dl Troponin I High Sensitivity 4 </=34 ng/L White Blood Count 7.5 4.4-10.8 10^3/uL Red Blood Count 3.98 L 4.0-5.20 10^6/uL Hemoglobin 12.8 12.2-16.2 g/dL Hematocrit 37.8 36.0-46.0 % Mean Corpuscular Volume 95.0 80.0-100.0 fL Mean Corpuscular Hemoglobin 32.1 H 28.0-32.0 pg Mean Corpuscular Hemoglobin Concent 33.8 32.0-36.0 g/dL Red Cell Distribution Width 13.8 11.8-14.3 % Platelet Count 191 140-450 10^3/uL Mean Platelet Volume 9.8 6.9-10.8 fL Neutrophils (%) (Auto) 71.7 37.0-80.0 % Lymphocytes (%) (Auto) 21.7 10.0-50.0 % Monocytes (%) (Auto) 5.5 0.0-12.0 % Eosinophils (%) (Auto) 0.0 0.0-7.0 % Basophils (%) (Auto) 1.1 0.0-2.0 % Neutrophils # (Auto) 5.3 1.6-8.6 10 ^3/uL Lymphocytes # (Auto) 1.6 0.4-5.4 10 ^3/uL Monocytes # (Auto) 0.4 0-1.3 10 ^3/uL Eosinophils # (Auto) 0 0-0.8 10 ^3/uL Basophils # (Auto) 0.1 0-0.2 10 ^3/uL Nucleated Red Blood Cells 0.1 % Prothrombin Time 10.5 9.3-11.8 sec Prothrombin Time INR 0.99 0.9-1.15 Activated Partial Thromboplast Time 26.1 24.5-34.5 SEC D-Dimer, Quantitative 0.47 0.0-0.49 mg/L FEU Sodium Level 143 136-145 mmol/L Potassium Level 4.4 3.5-5.1 mmol/L Chloride Level 109 H 98-107 mmol/L Carbon Dioxide Level 25 20-31 mmol/L Anion Gap 9 5-15 Blood Urea Nitrogen 24 H 9-23 mg/dL Creatinine 1.41 H 0.550-1.02 mg/dL Glomerular Filtration Rate Calc 38 >90 mL/min BUN/Creatinine Ratio 17.0 10.0-20.0 Serum Glucose 320 H 74-106 mg/dL Calcium Level 9.7 8.7-10.4 mg/dL B-Type Natriuretic Peptide 73.54 0-100 pg/mL Assessment Uncontrolled diabetes mellitus. Chest pain. Acute kidney injury. Hypertension. Dementia. Plan/Recommendation I agree with your ongoing assessment and care of plan. Telemetry reviewed. Echocardiogram. Morphine and [place] for pain management. Aspirin, Lipitor. Nitro SL. Additional plan as per the hospital course. A total of 45 minutes was spent reviewing the patient record, examining the patient, making a diagnostic and therapeutic plan, discussing this plan with medical personnel, following up on diagnostic studies and following the patient for clinical stability excluding any and all procedures. At least 50% of this time was spent in direct, [id number] contact. Plan discussed with: Patient TASHA TOWNSEND MD Apr 27, 2025 22:10
[2025-04-28 06:38] LABS: Basophils # (auto) 0.1 10 ^3/uL (0-0.2); Basophils % (auto) 0.7 % (0.0-2.0); Eosinophils # (auto) 0 10 ^3/uL (0-0.8); Hematocrit 35.8 % (36.0-46.0); Hemoglobin 12.5 g/dL (12.2-16.2); Lymphocytes # (auto) 1.9 10 ^3/uL (0.4-5.4); Lymphocytes % (auto) 26.3 % (10.0-50.0); Mean Corpuscular Hemoglobin 32.8 pg (28.0-32.0); Mean Corpuscular Hgb Conc. 34.9 g/dL (32.0-36.0); Monocytes # (auto) 0.5 10 ^3/uL (0-1.3); Neutrophils # (auto) 4.7 10 ^3/uL (1.6-8.6); Platelet Count (auto) 173 10^3/uL (140-450); Red Blood Cells 3.81 10^6/uL (4.0-5.20); Red Cell Distribution Width 13.4 % (11.8-14.3); White Blood Cell 7.1 10^3/uL (4.4-10.8)
[2025-04-28 06:57] LABS: Alkaline Phosphatase 107 U/L (46-116); Anion Gap 9 (5-15); BUN/Creatinine Ratio 18.8 (10.0-20.0); Blood Urea Nitrogen 21 mg/dL (9-23); Calcium 9.9 mg/dL (8.7-10.4); Carbon Dioxide 25 mmol/L (20-31); Cholesterol 125 mg/dL (< 200); LDL Cholesterol 67 mg/dL (< 100); Potassium 3.8 mmol/L (3.5-5.1); Sodium 143 mmol/L (136-145); Total Protein 6.3 g/dL (5.7-8.2); Triglycerides 136 mg/dL (< 150)
[2025-04-28 06:58] LABS: Bilirubin, Total 0.4 mg/dL (0.2-1.0)
[2025-04-28 07:00] LABS: Alanine Aminotransferase < 9 U/L (7-40); Aspartate Aminotransferase 13 U/L (13-40); Chloride 109 mmol/L (98-107); Glucose 127 mg/dL (74-106); HDL Cholesterol 35 mg/dL (40-59)
[2025-04-28] MEDS: ASPirin-EC 81 mg tab PO SCH (10:15)
--- NOTE | 2025-04-28 13:24 | DVHPN2 ---
Reviewed: Care Plan, H&P, Labs, Medications, Previous Orders, Radiology Changes from previous H/P or p: No Changes Eyes: No Pain, No Vision change, No Conjunctivae inflammation, No Eyelid inflammation, No Other, No Redness ENT: No Ear pain, No Ear discharge, No Nose pain, No Nose discharge, No Nose congestion, No Mouth pain, No Mouth swelling, No Throat pain, No Throat swelling, No Other Cardiovascular: Chest Pain (radiates to arms and back); No Palpitations, No Orthopnea, No Paroxysmal Noc. Dyspnea, No Edema, No Lt Headedness, No Other Respiratory: No Cough, No Dry, No Shortness of breath, No SOB with excertion, No Wheezing, No Hemoptysis, No Pleuritic Pain, No Sputum, No Other Gastrointestinal: No Nausea, No Vomiting, No Abdominal Pain, No Diarrhea, No Constipation, No Melena, No Hematochezia, No Other Genitourinary: No Dysuria, No Frequency, No Incontinence, No Hematuria, No Retention, No Other Musculoskeletal: No other, No neck pain, No shoulder pain, No arm pain, No back pain, No hand pain, No leg pain, No foot pain Skin: No Rash, No Lesions, No Jaundice, No Bruising, No Other Objective Vitals Vital Signs Date Time Temp Pulse Resp B/P (MAP) Pulse Ox O2 Delivery O2 Flow Rate FiO2 04/28/25 09:00 98.1 75 14 98/47 (64) 96 98.1 04/27/25 22:58 Room Air* 0 21 Intake/Output Intake and Output 04/28/25 07:00 Intake Total 0 ml Balance 0 ml Intake Oral 0 ml # Voids 4 # Bowel Movements 2 Medications Current Medications Medications Dose Ordered Sig/Alexa Route Start Time Stop Time Status Last Admin Dose Admin Acetaminophen/ Hydrocodone Bitart 1 tab Q4HP PRN PO 04/27/25 15:45 Ondansetron HCl 4 mg Q4HP PRN IV 04/27/25 15:45 Docusate Sodium 100 mg BIDPRN PRN PO 04/27/25 15:45 Acetaminophen 650 mg Q6HP PRN PO 04/27/25 15:45 Nitroglycerin 0.4 mg Q5MINP PRN SL 04/27/25 15:45 Morphine Sulfate 2 mg Q30M PRN IV 04/27/25 15:45 Diagnostic Test (Pha) 1 strip ACHS 04/27/25 17:00 04/28/25 10:19 1 STRIP Insulin Human Regular HS AR 04/27/25 22:00 04/27/25 22:43 6 UNITS Insulin Human Regular AC AR 04/27/25 17:00 04/28/25 06:13 2 UNITS Dextrose 50 ml UD PRN IV 04/27/25 16:00 Patient Own Medication 20 unit HS SC 04/27/25 22:00 Aspirin 81 mg DAILY PO 04/28/25 10:00 04/28/25 10:15 81 MG Donepezil HCl 10 mg HS PO 04/27/25 22:00 04/27/25 22:39 10 MG Propranolol HCl 10 mg BID PO 04/27/25 22:00 Hold Atorvastatin Calcium 20 mg HS PO 04/27/25 22:00 04/27/25 22:39 20 MG Insulin Glargine 20 units HS AR 04/28/25 22:00 Laboratory Results Laboratory Tests 04/28/25 06:03 Chemistry Test 04/28/25 06:03 Albumin 4.0 g/dL (3.2-4.8) Calcium Level 9.9 mg/dL (8.7-10.4) Total Protein 6.3 g/dL (5.7-8.2) Lipid panel Test 04/28/25 06:03 Cholesterol Level 125 mg/dL (< 200) HDL Cholesterol 35 mg/dL (40-59) L Triglycerides Level 136 mg/dL (< 150) LFT Test 04/28/25 06:03 Alanine Aminotransferase (ALT) < 9 U/L (7-40) Alkaline Phosphatase 107 U/L (46-116) Aspartate Amino Transferase (AST) 13 U/L (13-40) Total Bilirubin 0.4 mg/dL (0.2-1.0) HgA1c, TSH Test 04/28/25 06:03 Hemoglobin A1c 9.4 % A1C (<5.7) H Thyroid Stimulating Hormone (TSH) 2.52 uIU/mL (0.55-4.78) Labs and/or images reviewed: Labs reviewed by me, Image(s) reviewed by me Assessment/Plan Assessment/Plan Uncontrolled diabetes mellitus. glucose 320, A1c 9.4: Insulin aggressive sliding scale Acute chest pain troponin 60, cardiology consult Dr. Janie Li appreciated Acute kidney injury. Hypertension. Dementia. Asthma History of kidney stones Acute dehydration Urinalysis urine cultures blood cultures pending Plan discussed with: Patient Date of Service: Apr 28, 2025 Billing Provider: JONNA ALEMAN MD Common Visit Codes: [id number] INP/OBS CARE(HIGH) JONNA ALEMAN MD Apr 28, 2025 13:23
[2025-04-28 15:04] LABS: Urine Bacteria MOD /hpf (None Seen); Urine Blood TRACE /uL (Negative); Urine Clarity Turbid (Clear); Urine Color Colorless (Yellow); Urine Protein, UAD 1+ (Negative); Urine Specific Gravity 1.015 (1.001-1.035); Urine Squamous Epithelial Cell FEW /hpf (<5); Urine Urobilinogen Normal (Negative); Urine WBC 3 /HPF (0-5)
--- NOTE | 2025-04-28 15:39 | DVHSR ---
APPROVED REPORT EXAM: Two-dimensional and M-mode echocardiogram with Doppler and color Doppler. Blood Pressure: 132/75 mmHg INDICATION Chest Pain LV Function RISK FACTORS Height: 5' 4", Weight: 127 DIMENSIONS LVDd3.8 (3.8-5.7cm)LA (2D)4.0 (1.9-4.0cm)Aortic Root3.6 (2.0-3.7cm) LVDs2.6 (2.5-4.0cm)LA (MM) (1.9-4.0cm)Aortic Cusp Exc1.8 (1.5-2.0cm) EF (%) 60.0 (55-70%)Rt. Atrium3.5 (1.9-4.0cm)Asc. Aorta cm IVSd0.9 (0.7-1.1cm)RV (D) (1.8-2.4cm) PWd0.9 (0.7-1.1cm) Mitral Valve MitralMitral Stenosis E wave0.60m/sMV Mean GR.mmHg A wave1.00m/sMV Peak GR.mmHg E/A ratio0.62D MVAcm2 Aortic Valve Aortic ValveAortic Stenosis V10.80m/Luis Mean GR.3mmHg V21.00m/Luis Peak GR.4mmHg LVOT Diameter2.2 (1.8-2.4cm)Doppler AVA3.04cm2 Pulmonic Valve V20.80m/s Conclusion MODERATE DEGREE LVH AND MILD LV DIASTOLIC DYSFUNCTION LV EF IS 65% AND IS NORMAL NORMALVALVES NO EFFUSION
[2025-04-28] MEDS: INSULIN LANTUS (GLARGINE) 1 /0.01ml (100units/ml) SC SCH (21:21)
--- NOTE | 2025-04-28 23:31 | DVHPN2 ---
Progress Note - Dictate Date Seen: Apr 28, 2025 Medical Necessity Reason Pt with a Central, PICC or Fol: No Subjective Patient was seen and evaluated in follow up. Patient is A&Ox1. Sitter is at bedside. CL 109, DIRECTOR OF MATERIALS MANAGEMENT 1.12, HGB A1C 9.4. Telemetry reviewed. vital signs Vital Sign Date Time Temp Pulse Resp B/P (MAP) Pulse Ox O2 Delivery O2 Flow Rate FiO2 04/28/25 09:00 98.1 75 14 98/47 (64) 96 98.1 04/27/25 22:58 Room Air* 0 21 Total Intake and Output 04/27/25 04/27/25 04/28/25 15:00 23:00 07:00 Intake Total 0 ml Balance 0 ml medications Current Medications Medications Dose Ordered Sig/Alexa Route Start Time Stop Time Status Last Admin Dose Admin Acetaminophen/ Hydrocodone Bitart 1 tab Q4HP PRN PO 04/27/25 15:45 Ondansetron HCl 4 mg Q4HP PRN IV 04/27/25 15:45 Docusate Sodium 100 mg BIDPRN PRN PO 04/27/25 15:45 Acetaminophen 650 mg Q6HP PRN PO 04/27/25 15:45 Nitroglycerin 0.4 mg Q5MINP PRN SL 04/27/25 15:45 Morphine Sulfate 2 mg Q30M PRN IV 04/27/25 15:45 Diagnostic Test (Pha) 1 strip ACHS 04/27/25 17:00 04/28/25 10:19 1 STRIP Insulin Human Regular HS SC 04/27/25 22:00 04/27/25 22:43 6 UNITS Insulin Human Regular AC SC 04/27/25 17:00 04/28/25 06:13 2 UNITS Dextrose 50 ml UD PRN IV 04/27/25 16:00 Patient Own Medication 20 unit HS SC 04/27/25 22:00 Aspirin 81 mg DAILY PO 04/28/25 10:00 04/28/25 10:15 81 MG Donepezil HCl 10 mg HS PO 04/27/25 22:00 04/27/25 22:39 10 MG Propranolol HCl 10 mg BID PO 04/27/25 22:00 Hold Atorvastatin Calcium 20 mg HS PO 04/27/25 22:00 04/27/25 22:39 20 MG Insulin Glargine 20 units HS SC 04/28/25 22:00 objective GENERAL: Alert and oriented x1. EYES: PERRL, EOMI. Anicteric. HENT: Moist mucous membranes. LUNGS: Clear to auscultation bilaterally. CARDIOVASCULAR: Regular rate and rhythm. ABDOMEN: Soft, nontender and nondistended. EXTREMITIES: No edema. NEUROLOGIC: No focal neurological deficits. SKIN: Warm, dry. laboratory and microbiology Laboratory Tests 04/28/25 06:03 Test 04/28/25 06:03 Range/Units Serum Glucose 127 H 74-106 mg/dL Problem List Uncontrolled diabetes mellitus. Chest pain. Acute kidney injury. Hypertension. Dementia. Assessment/Plan Continued all current supportive medical care. Echocardiogram. Morphine and [place] for pain management. Aspirin, Lipitor. Nitro SL. Additional plan as per the hospital course. Plan discussed with: Other TASHA TOWNSEND MD Apr 28, 2025 13:24
[2025-04-29] VITALS (7 sets, daily range): BP systolic 107–145; BP diastolic 56–78; PULSE 61–90; RESP 16–18; TEMP 97.9–98.3; O2SAT 96–100
--- NOTE | 2025-04-29 12:20 | ECG ---
[facility] Test Date: 2025-04-27 Test Time: 12:07:23 Pat Name: ALONDRA ABREU Department: ER Room: [facility]6T B Gender: F Chief Wheelage Clerk: ISABEL : 1945 Requested By: THU FULLER Order Number: [id number] Reading MD: Tee Lara Measurements Intervals [place] Rate: 76 P: 68 ND: 188 QRS: 11 QRSD: 87 T: 51 QT: 381 QTc: 429 Interpretive Statements Sinus rhythm Low voltage, precordial leads Abnormal inferior Q waves Electronically Signed On 05-01-2025 20:47:03 PDT by Tee Lara Please click the below link to view image of tracing.
--- NOTE | 2025-04-29 13:00 | DVHPN2 ---
Reviewed: Care Plan, H&P, Labs, Medications, Previous Orders, Radiology Changes from previous H/P or p: No Changes Eyes: No Pain, No Vision change, No Conjunctivae inflammation, No Eyelid inflammation, No Other, No Redness ENT: No Ear pain, No Ear discharge, No Nose pain, No Nose discharge, No Nose congestion, No Mouth pain, No Mouth swelling, No Throat pain, No Throat swelling, No Other Cardiovascular: Chest Pain (radiates to arms and back); No Palpitations, No Orthopnea, No Paroxysmal Noc. Dyspnea, No Edema, No Lt Headedness, No Other Respiratory: No Cough, No Dry, No Shortness of breath, No SOB with excertion, No Wheezing, No Hemoptysis, No Pleuritic Pain, No Sputum, No Other Gastrointestinal: No Nausea, No Vomiting, No Abdominal Pain, No Diarrhea, No Constipation, No Melena, No Hematochezia, No Other Genitourinary: No Dysuria, No Frequency, No Incontinence, No Hematuria, No Retention, No Other Musculoskeletal: No other, No neck pain, No shoulder pain, No arm pain, No back pain, No hand pain, No leg pain, No foot pain Skin: No Rash, No Lesions, No Jaundice, No Bruising, No Other Objective Vitals Vital Signs Date Time Temp Pulse Resp B/P (MAP) Pulse Ox O2 Delivery O2 Flow Rate FiO2 04/29/25 09:00 98.1 71 16 145/78 (100) 100 98.1 04/29/25 08:00 Room Air* 0 21 Intake/Output Intake and Output 04/29/25 07:00 Intake Total 1000 ml Balance 1000 ml Intake Oral 1000 ml # Voids 7 # Bowel Movements 1 Medications Current Medications Medications Dose Ordered Sig/Alexa Route Start Time Stop Time Status Last Admin Dose Admin Acetaminophen/ Hydrocodone Bitart 1 tab Q4HP PRN PO 04/27/25 15:45 Ondansetron HCl 4 mg Q4HP PRN IV 04/27/25 15:45 Docusate Sodium 100 mg BIDPRN PRN PO 04/27/25 15:45 Acetaminophen 650 mg Q6HP PRN PO 04/27/25 15:45 Nitroglycerin 0.4 mg Q5MINP PRN SL 04/27/25 15:45 Morphine Sulfate 2 mg Q30M PRN IV 04/27/25 15:45 Diagnostic Test (Pha) 1 strip ACHS 04/27/25 17:00 04/29/25 11:15 1 STRIP Insulin Human Regular HS NM 04/27/25 22:00 04/28/25 21:23 4 UNITS Insulin Human Regular AC SC 04/27/25 17:00 04/28/25 17:02 6 UNITS Dextrose 50 ml UD PRN IV 04/27/25 16:00 Patient Own Medication 20 unit HS SC 04/27/25 22:00 Aspirin 81 mg DAILY PO 04/28/25 10:00 04/29/25 09:16 81 MG Donepezil HCl 10 mg HS PO 04/27/25 22:00 04/28/25 21:25 10 MG Propranolol HCl 10 mg BID PO 04/27/25 22:00 Hold Atorvastatin Calcium 20 mg HS PO 04/27/25 22:00 04/28/25 21:25 20 MG Insulin Glargine 20 units HS SC 04/28/25 22:00 04/28/25 21:21 20 UNITS Laboratory Results Laboratory Tests 04/28/25 06:03 Urinalysis Test 04/28/25 14:58 Urine Color Colorless (Yellow) Urine Clarity Turbid (Clear) H Urine pH 6.0 (5.0-9.0) Urine Specific [place] 1.015 (1.001-1.035) Urine Protein 1+ (Negative) H Urine Ketones Negative (Negative) Urine Blood Trace /uL (Negative) H Urine Nitrite 2+ (Negative) H Urine Bilirubin Negative (Negative) Urine Urobilinogen Normal mg/dL (Negative) Urine Leukocyte Esterase Negative /uL (Negative) Urine RBC 2 /hpf (0 - 4) Urine Microscopic WBC 3 /HPF (0-5) Urine Squamous Epithelial Cells Few /hpf (<5) Urine Bacteria Mod /hpf (None Seen) H Urine Glucose 2+ mg/dL (Normal) H Microbiology Microbiology Date/Time Source Procedure Growth Status 04/28/25 14:58 Voided Urine Urine Culture - Preliminary Resulted Labs and/or images reviewed: Labs reviewed by me, Image(s) reviewed by me Assessment/Plan Assessment/Plan Uncontrolled diabetes mellitus. glucose 320, A1c 9.4: Insulin aggressive sliding scale Acute chest pain troponin 60, cardiology consult Dr. Janie Li appreciated, echo 65 % ejection fraction Acute kidney injury. Hypertension. Dementia. Asthma History of kidney stones Acute dehydration UTI ruled out Plan discussed with: Patient My Orders Orders - JONNA ALEMAN MD Procedure Category Date Status Time Urine Bacterial SHALONDA 04/28/25 In Process Culture 13:19 Blood Culture SHALONDA 04/28/25 In Process 13:19 Date of Service: Apr 29, 2025 Billing Provider: JONNA ALEMAN MD Common Visit Codes: [id number] INP/OBS CARE(HIGH) JONNA ALEMAN MD Apr 29, 2025 13:00
--- NOTE | 2025-04-30 00:15 | DVHPN2 ---
Progress Note - Dictate Date Seen: Apr 29, 2025 Medical Necessity Reason Pt with a Central, PICC or Fol: No Subjective Patient was seen and evaluated in follow up. Sitter is at bedside. The patient remains altered. BS in the 240s. Prelim blood cultures are negative. Urine culture is pending. Telemetry reviewed. vital signs Vital Sign Date Time Temp Pulse Resp B/P (MAP) Pulse Ox O2 Delivery O2 Flow Rate FiO2 04/29/25 21:00 98.1 86 18 138/62 (87) 96 98.1 04/29/25 20:00 Room Air* 0 21 Total Intake and Output 04/29/25 04/29/25 04/30/25 15:00 23:00 07:00 Intake Total 140 ml 600 ml Balance 140 ml 600 ml medications Current Medications Medications Dose Ordered Sig/Alexa Route Start Time Stop Time Status Last Admin Dose Admin Acetaminophen/ Hydrocodone Bitart 1 tab Q4HP PRN PO 04/27/25 15:45 Ondansetron HCl 4 mg Q4HP PRN IV 04/27/25 15:45 Docusate Sodium 100 mg BIDPRN PRN PO 04/27/25 15:45 Acetaminophen 650 mg Q6HP PRN PO 04/27/25 15:45 Nitroglycerin 0.4 mg Q5MINP PRN SL 04/27/25 15:45 Morphine Sulfate 2 mg Q30M PRN IV 04/27/25 15:45 Diagnostic Test (Pha) 1 strip ACHS 04/27/25 17:00 04/29/25 21:44 1 STRIP Insulin Human Regular HS SC 04/27/25 22:00 04/29/25 21:43 4 UNITS Insulin Human Regular AC SC 04/27/25 17:00 04/29/25 17:02 6 UNITS Dextrose 50 ml UD PRN IV 04/27/25 16:00 Patient Own Medication 20 unit HS SC 04/27/25 22:00 Aspirin 81 mg DAILY PO 04/28/25 10:00 04/29/25 09:16 81 MG Donepezil HCl 10 mg HS PO 04/27/25 22:00 04/29/25 21:31 10 MG Propranolol HCl 10 mg BID PO 04/27/25 22:00 Hold Atorvastatin Calcium 20 mg HS PO 04/27/25 22:00 04/29/25 21:31 20 MG Insulin Glargine 20 units HS SC 04/28/25 22:00 04/29/25 21:49 20 UNITS objective GENERAL: Alert and oriented x1. EYES: PERRL, EOMI. Anicteric. HENT: Moist mucous membranes. LUNGS: Clear to auscultation bilaterally. CARDIOVASCULAR: Regular rate and rhythm. ABDOMEN: Soft, nontender and nondistended. EXTREMITIES: No edema. NEUROLOGIC: No focal neurological deficits. SKIN: Warm, dry. laboratory and microbiology Laboratory Tests 04/28/25 06:03 Test 04/28/25 06:03 Range/Units Serum Glucose 127 H 74-106 mg/dL Problem List Uncontrolled diabetes mellitus. Chest pain. Acute kidney injury. Hypertension. Dementia. Assessment/Plan Continued all current supportive medical care. Echocardiogram. Morphine and [place] for pain management. Aspirin, Lipitor. Nitro SL. Additional plan as per the hospital course. Plan discussed with: Other TASHA TOWNSEND MD Apr 30, 2025 00:15
[2025-04-30 01:00] VITALS: BP 107/55; PULSE 80; RESP 17; TEMP 98.3; O2SAT 95
[2025-04-30 05:00] VITALS: BP 97/53; PULSE 85; RESP 17; TEMP 98.4; O2SAT 95
[2025-04-30 08:00] VITALS: PULSE 75; PULSE 76; RESP 18; O2SAT 98
--- NOTE | 2025-04-30 11:43 | DVHDS2 ---
Discharge Summary Date of Admission Apr 27, 2025 at 15:45 Date of Discharge: Apr 30, 2025 Admitting Diagnosis Uncontrolled blood sugars Wounds: None Labs/Diagnostic Data: Laboratory Results Test 04/30/25 06:21 04/28/25 14:58 04/28/25 06:03 04/27/25 13:52 POC Glucose 127 mg/dl (70-106) Urine Color Colorless (Yellow) Urine Clarity Turbid (Clear) Urine pH 6.0 (5.0-9.0) Urine Specific [place] 1.015 (1.001-1.035) Urine Protein 1+ (Negative) Urine Ketones Negative (Negative) Urine Blood Trace /uL (Negative) Urine Nitrite 2+ (Negative) Urine Bilirubin Negative (Negative) Urine Urobilinogen Normal mg/dL (Negative) Urine Leukocyte Esterase Negative /uL (Negative) Urine RBC 2 /hpf (0 - 4) Urine Microscopic WBC 3 /HPF (0-5) Urine Squamous Epithelial Cells Few /hpf (<5) Urine Bacteria Mod /hpf (None Seen) Urine Glucose 2+ mg/dL (Normal) White Blood Count 7.1 10^3/uL (4.4-10.8) Red Blood Count 3.81 10^6/uL (4.0-5.20) Hemoglobin 12.5 g/dL (12.2-16.2) Hematocrit 35.8 % (36.0-46.0) Mean Corpuscular Volume 94.0 fL (80.0-100.0) Mean Corpuscular Hemoglobin 32.8 pg (28.0-32.0) Mean Corpuscular Hemoglobin Concent 34.9 g/dL (32.0-36.0) Red Cell Distribution Width 13.4 % (11.8-14.3) Platelet Count 173 10^3/uL (140-450) Mean Platelet Volume 9.9 fL (6.9-10.8) Neutrophils (%) (Auto) 66.0 % (37.0-80.0) Lymphocytes (%) (Auto) 26.3 % (10.0-50.0) Monocytes (%) (Auto) 7.0 % (0.0-12.0) Eosinophils (%) (Auto) 0.0 % (0.0-7.0) Basophils (%) (Auto) 0.7 % (0.0-2.0) Neutrophils # (Auto) 4.7 10 ^3/uL (1.6-8.6) Lymphocytes # (Auto) 1.9 10 ^3/uL (0.4-5.4) Monocytes # (Auto) 0.5 10 ^3/uL (0-1.3) Eosinophils # (Auto) 0 10 ^3/uL (0-0.8) Basophils # (Auto) 0.1 10 ^3/uL (0-0.2) Nucleated Red Blood Cells 0.0 % Sodium Level 143 mmol/L (136-145) Potassium Level 3.8 mmol/L (3.5-5.1) Chloride Level 109 mmol/L (98-107) Carbon Dioxide Level 25 mmol/L (20-31) Anion Gap 9 (5-15) Blood Urea Nitrogen 21 mg/dL (9-23) Creatinine 1.12 mg/dL (0.550-1.02) Glomerular Filtration Rate Calc 51 mL/min (>90) BUN/Creatinine Ratio 18.8 (10.0-20.0) Serum Glucose 127 mg/dL (74-106) Hemoglobin A1c 9.4 % A1C (<5.7) Calcium Level 9.9 mg/dL (8.7-10.4) Total Bilirubin 0.4 mg/dL (0.2-1.0) Aspartate Amino Transferase (AST) 13 U/L (13-40) Alanine Aminotransferase (ALT) < 9 U/L (7-40) Alkaline Phosphatase 107 U/L (46-116) Total Protein 6.3 g/dL (5.7-8.2) Albumin 4.0 g/dL (3.2-4.8) Triglycerides Level 136 mg/dL (< 150) Cholesterol Level 125 mg/dL (< 200) LDL Cholesterol 67 mg/dL (< 100) HDL Cholesterol 35 mg/dL (40-59) Thyroid Stimulating Hormone (TSH) 2.52 uIU/mL (0.55-4.78) Troponin I High Sensitivity 4 ng/L (</=34) Test 04/27/25 12:39 Prothrombin Time 10.5 sec (9.3-11.8) Prothrombin Time INR 0.99 (0.9-1.15) Activated Partial Thromboplast Time 26.1 SEC (24.5-34.5) D-Dimer, Quantitative 0.47 mg/L FEU (0.0-0.49) B-Type Natriuretic Peptide 73.54 pg/mL (0-100) Other Laboratory Tests 04/28/25 06:03 Brief Hx & Hospital Course: 79-year-old female with a history of dementia hypertension asthma kidney stones diabetes taking insulin came in for uncontrolled blood sugars A1c was 9.4 glucose 320 treated with the aggressive sliding scale blood sugars controlled also complained of chest pain troponin 60. Treated per ACS protocol cardiology consult by Dr. Li echo 65 percent ejection fraction no further cardiac workup patient feels better being discharged home advised to check the blood sugar 3 times a day and take insulin as appropriate. Consults/Reason for consult Cardiology Dr. Janie Li Operations or Procedures None Condition at Discharge: Fair Final Diagnosis/Problems List Uncontrolled diabetes mellitus. glucose 320, A1c 9.4: Insulin aggressive sliding scale Acute chest pain troponin 60, cardiology consult Dr. Janie Li appreciated, echo 65 % ejection fraction Acute kidney injury. Hypertension. Dementia. Asthma History of kidney stones Acute dehydration UTI ruled out Discharge Disposition: Home Discharge Instruct/Medications Diet: Consistent carbohydrate Activity: No Restrictions, As Tolerated Follow Up/Referral: Check blood sugars 3 times a day Take insulin Resume other home medications Medications: none 36 (Time taken for discharge summary 36 minutes) Discharge Statement: "Patient was advised to return to the ER or call 911 if any headaches, dizziness, shortness of breath, chest pain, abdominal pain, bleeding, fevers, or worsening of medical condition. Patient was counseled about treatment plan, medications, possible side effects, patientverbalized understanding. All questions were answered to the best of my ability. This discharge took greater then 30 minutes in planning, reviewing documentation, counseling the patient, and discussing with other team members." ASSESSMENT ASSESSMENT Hospital Course improved Assessment Uncontrolled diabetes mellitus. glucose 320, A1c 9.4: Insulin aggressive sliding scale Acute chest pain troponin 60, cardiology consult Dr. Janie Li appreciated, echo 65 % ejection fraction Acute kidney injury. Hypertension. Dementia. Asthma History of kidney stones Acute dehydration UTI ruled out Date of Service: Apr 30, 2025 Billing Provider: JONNA ALEMAN MD Common Visit Codes: [id number] INP/OBS CARE(HIGH) JONNA ALEMAN MD Apr 30, 2025 11:43
[2025-04-30 12:18] VITALS: BP 128/84; PULSE 69; RESP 18; TEMP 98.7; O2SAT 96
--- NOTE | 2025-04-30 22:32 | DVHPN2 ---
Progress Note - Dictate Date Seen: Apr 30, 2025 Medical Necessity Reason Pt with a Central, PICC or Fol: No Subjective Patient was seen and evaluated in follow up. Sitter at bedside. Echocardiogram shows an EF of 65%. Patient denies any cardiac symptoms. Patient is cardiac stable for discharge. Telemetry reviewed. vital signs Vital Sign Date Time Temp Pulse Resp B/P (MAP) Pulse Ox O2 Delivery O2 Flow Rate FiO2 04/30/25 12:18 98.7 69 18 96 04/30/25 08:00 Room Air* 0 21 04/30/25 05:00 97/53 (68) Total Intake and Output 04/29/25 04/29/25 04/30/25 15:00 23:00 07:00 Intake Total 140 ml 600 ml 550 ml Balance 140 ml 600 ml 550 ml objective GENERAL: Alert and oriented x1. EYES: PERRL, EOMI. Anicteric. HENT: Moist mucous membranes. LUNGS: Clear to auscultation bilaterally. CARDIOVASCULAR: Regular rate and rhythm. ABDOMEN: Soft, nontender and nondistended. EXTREMITIES: No edema. NEUROLOGIC: No focal neurological deficits. SKIN: Warm, dry. laboratory and microbiology Laboratory Tests 04/28/25 06:03 Test 04/28/25 06:03 Range/Units Serum Glucose 127 H 74-106 mg/dL Problem List Uncontrolled diabetes mellitus. Chest pain. Acute kidney injury. Hypertension. Dementia. Assessment/Plan Continued all current supportive medical care. Morphine and [place] for pain management. Aspirin, Lipitor. Nitro SL. Additional plan as per the hospital course. Plan discussed with: Patient TASHA TOWNSEND MD Apr 30, 2025 22:32
== END 2025-04-30 13:20 | disposition home or self-care (01) | DRG 205 ==
LOC: ER 11:59 → OVERFLOW 15:45 → TELE-WESTW 21:17
PROVIDERS: ADMIT Family Medicine; ATTEND Family Medicine
DX: M94.0 Chondrocostal junction syndrome [Tietze] (principal); E11.00 Type 2 diabetes mellitus with hyperosmolarity without nonketotic hyperglycemic-hyperosmolar coma (NKHHC); N17.0 Acute kidney failure with tubular necrosis; E86.0 Dehydration; F03.90 Unspecified dementia, unspecified severity, without behavioral disturbance, psychotic disturbance, mood disturbance, and anxiety; F17.210 Nicotine dependence, cigarettes, uncomplicated; I10 Essential (primary) hypertension; M54.9 Dorsalgia, unspecified; Z96.642 Presence of left artificial hip joint; J45.909 Unspecified asthma, uncomplicated; Z79.1 Long term (current) use of non-steroidal anti-inflammatories (NSAID); Z79.82 Long term (current) use of aspirin; Z79.4 Long term (current) use of insulin; Z79.899 Other long term (current) drug therapy; Z79.2 Long term (current) use of antibiotics; Z90.49 Acquired absence of other specified parts of digestive tract; Z98.891 History of uterine scar from previous surgery; Z83.3 Family history of diabetes mellitus; Z82.49 Family history of ischemic heart disease and other diseases of the circulatory system; Z87.442 Personal history of urinary calculi
CPT/HCPCS: 36415; 71045; 80048; 80053; 80061; 81001; 82962; 83036; 83880; 84443; 84484; 85025; 85379; 85610; 85730; 87040; 87086; 87088; 87186; 93005; 93306; 93886; 96372; G0378; J1815